=== PATIENT | female | born 1980 ===

== ENCOUNTER 2020-02-16 17:06 | Outpatient (REF) | payer OTHER, SELFPAY | END 2020-02-16 17:07 | disposition home or self-care (01) | LOC: HO.LNP 17:06 | PROVIDERS: Visit Provider Physician Assistant | DX: J02.8 Acute pharyngitis due to other specified organisms (principal) | CPT/HCPCS: 87071 ==

== ENCOUNTER → 2020-04-06 10:06 | Outpatient (BNVA) | payer OTHER, SELFPAY | PROVIDERS: PCP Internal Medicine; Visit Provider Advanced Practice Midwife ==

== ENCOUNTER 2020-04-15 08:22 | Outpatient (REF) | payer OTHER, SELFPAY ==
[2020-04-17 03:51] LABS: C. trachomatis RNA TMA NOT DETECTED (NOT DETECTED); N. gonorrhoeae RNA TMA NOT DETECTED (NOT DETECTED)
== END 2020-04-15 08:23 | disposition home or self-care (01) ==
LOC: HO.LNP 08:22
PROVIDERS: Visit Provider Advanced Practice Midwife
DX: Z30.430 Encounter for insertion of intrauterine contraceptive device (principal); N92.0 Excessive and frequent menstruation with regular cycle; B94.8 Sequelae of other specified infectious and parasitic diseases
CPT/HCPCS: 58300; 81025; 87491; 87591; 99212

== ENCOUNTER → 2020-04-26 14:21 | Outpatient (BNVA) | payer OTHER, SELFPAY | PROVIDERS: PCP Internal Medicine; Visit Provider Surgery | DX: K42.9 Umbilical hernia without obstruction or gangrene (principal) | CPT/HCPCS: 99202 ==

== ENCOUNTER 2020-05-05 18:25 | Emergency (ER) | payer OTHER, SELFPAY ==
--- NOTE | ~2020-05-05 | US_ITS ---
EXAMINATION: PELVIC ULTRASOUND CLINICAL INFORMATION: Heavy vaginal bleeding with recent IUD placement. Left lower quadrant pain with question of ovarian torsion COMPARISON: 07/01/2018 TECHNIQUE: Both transabdominal endovaginal scanning was performed. Lower flow Doppler imaging was utilized. FINDINGS: Retroverted retroflexed uterus is present measuring 8.9 x 4.1 x 4.8 cm. The endometrium appears unremarkable at 0.9 cm. An IUD is present in correct position. The right ovary measures 4.0 x 1.5 x 2.7 cm for a volume of 12.2 mL and contains 2 cysts one measuring 2.8 x 1.3 x 2.9 cm with internal daughter cysts (image: 79/114) along with an additional 1.3 x 0.7 x 1.0 cm cyst. Left ovary measures 2.4 x 1.8 x 2.1 cm for a volume of 5.7 mL the and it contains follicular cysts the largest of which is 0.9 x 0.6 x 1.2 cm. No free fluid is present in the cul-de-sac Both ovaries demonstrate normal arterial and venous Doppler flow without evidence to suggest ovarian torsion. Prominent adnexal veins are present bilaterally, right greater than left. US/US pelvic complete IMPRESSION: No evidence of ovarian torsion. Bilateral ovarian cysts, right greater than left. No follow-up is needed.
--- NOTE | ~2020-05-05 | US_ITS ---
EXAMINATION: PELVIC ULTRASOUND CLINICAL INFORMATION: Heavy vaginal bleeding with recent IUD placement. Left lower quadrant pain with question of ovarian torsion COMPARISON: 07/01/2018 TECHNIQUE: Both transabdominal endovaginal scanning was performed. Lower flow Doppler imaging was utilized. FINDINGS: Retroverted retroflexed uterus is present measuring 8.9 x 4.1 x 4.8 cm. The endometrium appears unremarkable at 0.9 cm. An IUD is present in correct position. The right ovary measures 4.0 x 1.5 x 2.7 cm for a volume of 12.2 mL and contains 2 cysts one measuring 2.8 x 1.3 x 2.9 cm with internal daughter cysts (image: 79/114) along with an additional 1.3 x 0.7 x 1.0 cm cyst. Left ovary measures 2.4 x 1.8 x 2.1 cm for a volume of 5.7 mL the and it contains follicular cysts the largest of which is 0.9 x 0.6 x 1.2 cm. No free fluid is present in the cul-de-sac Both ovaries demonstrate normal arterial and venous Doppler flow without evidence to suggest ovarian torsion. Prominent adnexal veins are present bilaterally, right greater than left. US/US transvaginal IMPRESSION: No evidence of ovarian torsion. Bilateral ovarian cysts, right greater than left. No follow-up is needed.
--- NOTE | ~2020-05-05 | US_ITS ---
EXAMINATION: PELVIC ULTRASOUND CLINICAL INFORMATION: Heavy vaginal bleeding with recent IUD placement. Left lower quadrant pain with question of ovarian torsion COMPARISON: 07/01/2018 TECHNIQUE: Both transabdominal endovaginal scanning was performed. Lower flow Doppler imaging was utilized. FINDINGS: Retroverted retroflexed uterus is present measuring 8.9 x 4.1 x 4.8 cm. The endometrium appears unremarkable at 0.9 cm. An IUD is present in correct position. The right ovary measures 4.0 x 1.5 x 2.7 cm for a volume of 12.2 mL and contains 2 cysts one measuring 2.8 x 1.3 x 2.9 cm with internal daughter cysts (image: 79/114) along with an additional 1.3 x 0.7 x 1.0 cm cyst. Left ovary measures 2.4 x 1.8 x 2.1 cm for a volume of 5.7 mL the and it contains follicular cysts the largest of which is 0.9 x 0.6 x 1.2 cm. No free fluid is present in the cul-de-sac Both ovaries demonstrate normal arterial and venous Doppler flow without evidence to suggest ovarian torsion. Prominent adnexal veins are present bilaterally, right greater than left. US/US pelvic ovarian doppler IMPRESSION: No evidence of ovarian torsion. Bilateral ovarian cysts, right greater than left. No follow-up is needed.
[2020-05-05 20:02] VITALS: BP 110/54; PULSE 84; RESP 16; TEMP 37.1; O2SAT 98; BMI 30.1
[2020-05-05] MEDS: 0.9 % Sodium Chloride 1,000 ML 999 ML IVCONT (20:54)
[2020-05-05 21:08] LABS: MANUAL DIFF FLAG NO
[2020-05-05 21:18] LABS: Basophils Absolute Auto 0.1 X10*3/uL (0.0-0.2); Basophils Percent Auto 0.5 % (0-2); Eosinophils Absolute Auto 0.1 X10*3/uL (0.0-0.4); Eosinophils Percent Auto 0.8 % (0-4); Hematocrit 37.8 % (37-47); Hemoglobin 12.5 g/dl (12.0-16.0); Imm Gran Abs Auto 0.03 X10*3/uL (0.00-0.03); Imm Gran Pct Auto 0.3 % (0.0-0.4); Lymphocytes Absolute Auto 2.3 X10*3/uL (1.2-4.9); Lymphocytes Percent Auto 24.2 % (20-40); Mean Corpuscular HGB Conc 33.1 g/dl (31.0-35.0); Mean Corpuscular Hemoglobin 29.6 pg (27.0-33.0); Mean Corpuscular Volume 89.4 fL (80-98); Mean Platelet Volume 12.4 fL (9.4-12.3); Monocytes Absolute Auto 0.6 X10*3/uL (0.1-1.2); Monocytes Percent Auto 6.1 % (2-11); Neutrophils Absolute Auto 6.4 X10*3/uL (2.0-8.3); Neutrophils Percent Auto 68.1 % (45-73); Platelet Count 237 X10*3/uL (160-400); Red Blood Count 4.23 X10*6/uL (4.20-5.50); Red Cell Distribution Width 13.1 % (11.0-16.0); White Blood Count 9.4 X10*3/uL (4.8-10.8)
[2020-05-05 21:18] LABS: Glucose Urine UA NEG (NEG); Leukocyte Esterase Urine 1+ (NEG); Nitrite Urine NEG (NEG); Specific Gravity - Urine 1.015 (1.005-1.025); UACC Culture Trigger YES; Urine Blood 3+ (NEG); Urine Ketones NEG (NEG); Urine Protein NEG (NEG-TRACE)
[2020-05-05 21:21] LABS: Appearance Urine HAZY; Color Urine DARK YELLOW
[2020-05-05 21:22] LABS: UPreg QC Valid YES; Urine Pregnancy NEGATIVE (NEGATIVE)
[2020-05-05 21:24] LABS: INTERNATIONAL NORM RATIO 1.1 (0.9-1.1); Prothrombin Time 12.7 SEC (10.8-13.0)
[2020-05-05 21:28] LABS: Partial Thromboplastin Time 35.7 SEC (24.1-38.0)
[2020-05-05 21:38] LABS: Bacteria Urine TRACE /LPF; Squamous Epithelial Cell Urine TRACE /LPF
--- NOTE | 2020-05-05 21:51 | PC.NURSE ---
Patient off unit for ultrasound. Will redraw labs when she returns. Refused tramadol prior to ultrasound. States she does not want medication that strong.
[2020-05-05 22:28] LABS: Alanine Aminotransferase 28 U/L (0-31); Albumin Level 3.9 g/dL (3.5-5.0); Alkaline Phosphatase 56 U/L (39-117); Anion Gap 13 (12-20); Aspartate Amino Transferase 19 U/L (5-31); Bilirubin Direct < 0.2 mg/dL (0.0-0.5); Bilirubin Total 0.2 mg/dL (0.0-1.0); Blood Urea Nitrogen 15 mg/dL (9-16); Carbon Dioxide 23 mmol/L (22-29); Chloride 108 mmol/L (96-108); Creatinine Clr Calc Pharmacy 94.9; Estimated Glomerular Filt Rate > 60; Glucose Random 87 mg/dL (60-115); Potassium 4.3 mmol/L (3.3-5.1); Sodium 140 mmol/L (135-145); Total Protein 6.8 g/dL (6.5-8.0)
--- NOTE | 2020-05-05 23:06 | PC.NURSE ---
Bedside vaginal exam performed by provider. Exam results explained.
--- NOTE | 2020-05-05 23:08 | ED.FEMALEGU ---
HPI - Female Genitourinary General Chief complaint: Vaginal Bleeding Stated complaint: vaginal bleeding Time Seen by Provider: 05/05/20 20:15 Source: patient Mode of arrival: ambulatory Limitations: no limitations History of Present Illness HPI Narrative: 39-year-old female with a past medical history of anxiety disorder, umbilical hernia, who is 6 months who had an IUD placed on 04/15/2020 presenting to the ED with complaints of vaginal bleeding since 04/01/2020 worse within the past few days with clots with associated lower abdominal pain. Denies any other symptoms complaints or concerns. Reports that she recently had a Pap smear and was tested for gonorrhea chlamydia was negative. Declining testing for STDs at this time. MD elicited complaint: vaginal bleeding Pertinent past history: IUD (Placed on 04/15/2020) Onset (ago): day(s) (Since 04/01/2020 worse today) Location of symptoms: suprapubic Severity: moderate Female Urogenital Radiation: LLQ Quality of pain: cramping Consistency: constant Vaginal discharge: none Vaginal bleeding: heavy, bright red and clots Exacerbating factors: none Relieving factors: none Associated symptoms: abdominal pain Treatment prior to arrival: none Sexual activity: Yes Patient : No Related Data Home Medications Medication Instructions Recorded Confirmed multivitamin 1 tab PO DAILY 12/02/19 04/26/20 Previous Rx's Medication Instructions Recorded loratadine 10 mg capsule 10 mg PO DAILY 30 Days #30 cap 01/27/20 sodium chloride 0.65 % nasal spray 2 spray INTRANASAL BID 5 Days #50 01/27/20 aerosol ml acetaminophen [Tylenol Extra 1,000 mg PO QID PRN #14 tab 05/05/20 Strength] ibuprofen 800 mg PO Q8H PRN #14 tab 05/05/20 Allergies Allergy/AdvReac Type Severity Reaction Status Date / Time Penicillins [PENICILLINS] Allergy Severe HIVES Verified 04/15/20 08:37 amoxicillin [AMOXICILLIN] Allergy Mild HIVES Verified 04/15/20 08:37 eggs Allergy Unknown Unknown Verified 04/15/20 08:37 penicillin V Allergy Unknown unknown Verified 04/15/20 08:37 peanuts Allergy Unknown Unknown Uncoded 04/15/20 08:37 sesami seeds Allergy Unknown shortness Uncoded 04/15/20 08:37 of breath sesamy seed Allergy Unknown Unknown Uncoded 04/06/20 10:38 tree nuts Allergy Unknown nausea and Uncoded 04/06/20 10:38 vomiting Review of Systems Review of Systems: Constitutional : No Fever, No Chills ENT/Mouth : No sore throat, No Rhinorrhea Eyes: No Eye Pain, No Redness Cardiovascular : No Chest Pain, No SOB Respiratory : No Cough, No Sputum, No Wheezing Gastrointestinal : No Nausea, No Vomiting, No Diarrhea, positive abdominal pain, Genitourinary : + irregular bleeding, No Dysuria, No Urinary Frequency, No pelvic pain, No vaginal discharge, no hematuria Musculoskeletal : No Myalgias Skin : No rash Neuro : No Weakness, No Headache Psych : No Anxiety/Panic, No Depression Heme/Lymph: No bruising, No Lymphadenopathy Endocrine : No Polyuria, No Polydipsia Yes all other systems are reviewed and are negative [facility] Past Medical History Attestation statement: The following information was validated with the patient. Medical History Breast cyst Ovarian cyst Umbilical hernia Surgical History History of appendectomy Family History Family History Maternal Grandmother Breast cancer Social History Social History Alcohol intake: never Smoking Status: Never smoker Smoked in Last 30 Days: No Use of substances other than those prescribed or required for medical reasons: No Advance Directives: No Advance Directives Information Provided: Yes Sexual orientation: Straight/Heterosexual Gender identity: female Physical Exam Vital Signs: Vital Signs: Last Vital Signs Temp 98.7 F 05/05/20 20:02 Pulse 84 05/05/20 20:02 Resp 16 05/05/20 20:02 BP 110/54 L 05/05/20 20:02 Pulse Ox 98 05/05/20 20:02 Body Mass Index 30.1 vital signs have been reviewed as normal and appeared to be correct. Blood pressure normal. Heart rate normal. Respiration rate normal. Temperature normal. Oxygen saturation normal. Appearance: Alert. Oriented X3. No acute distress. Head: Normal external exam. Normocephalic. Atraumatic. No Pike signs noted. No raccoon eyes noted Eyes: PERRLA. EOMI. Conjunctiva and sclera normal. Eyelids normal. ENT: EAC normal. TM's Normal. Pharynx normal. Uvula midline. Moist mucous membranes. No trismus noted. No drooling noted. No muffled voice noted. Neck: Normal inspection. Neck supple. FROM. No adenopathy. Thyroid Normal. No meningeal signs. No neck mass noted. CVS: Normal heart rate and rhythm. Heart sound normal. No murmurs noted. Pulses normal throughout. Respiratory: No respiratory distress. Painless inspiration. Breath sounds normal. No wheezes/rales/rhonchi noted. Chest nontender. No accessory muscle usage noted or decreased air movement noted. Abdomen: Soft and nontender. Bowel sounds normal in all 4 quadrants. No distention noted. No organomegaly noted. No visible injury noted. : Supervised by PCT, Normal external appearance of urethra. No lesions/lacerations or discharge or tenderness noted. Speculum exam normal appearance/palpation of vagina normal. No abnormal vaginal discharge noted. Otherwise no vaginal erythema. No foreign bodies noted. No vaginal laceration/lesions noted. Patient with mild active bleeding from the cervix although not consistent with hemorrhaging. No tissue present in vagina. No vaginal mass noted. No vaginal swelling noted. No vaginal tenderness noted. Normal appearance of cervix. Normal palpation of cervix. Cervical os is closed. No abnormal cervical discharge noted. No cervical lesion/mass. No Bartholin cyst noted. No cervical motion tenderness noted. Negative chandelier sign. Normal bimanual exam. Uterine size normal. Bladder normal to palpation. Uterine consistency normal. Normal cervical palpation. Uterine mobility normal. Uterine shape normal. Normal adnexa. Normal rectovaginal exam. Back: No CVA tenderness. Full range of motion noted. Skin: Skin warm and dry. Normal skin color. Normal skin turgor. No rashes/lesions/lacerations noted. Extremities: No lower extremity edema. Extremities exhibit normal range of motion. Extremities nontender. Neuro: Oriented X 3. No motor deficit. No sensory deficit. Reflexes normal. Course Course Course Narrative: 39-year-old female with a past medical history of anxiety disorder, umbilical hernia, who is 6 months who had an IUD placed on 04/15/2020 presenting to the ED with complaints of vaginal bleeding since 04/01/2020 worse within the past few days with clots with associated lower abdominal pain. - labs obtained and all within normal limits. UA revealed blood although no evidence of UTI. UHCG negative for . Ovarian/pelvic/transvaginal/duplex ultrasound revealed bilateral ovarian cyst otherwise no other acute processes and not consistent with ovarian torsion. - therefore will DC home with symptomatic treatment along with instructions to follow-up with OBGYN and to return if any new or worsening symptoms. Patient understands agrees with this plan. MDM - Female Genitourinary Medical Records Attestation: I reviewed the patient's medical records. Lab Data Attestation: I reviewed the patient's lab results. Result diagrams: 05/05/20 20:52 05/05/20 21:59 Labs: Lab Results 05/05/20 05/05/20 05/05/20 Range/Units 20:52 20:52 20:52 WBC 9.4 (4.8-10.8) X10*3/uL RBC 4.23 (4.20-5.50) X10*6/uL Hgb 12.5 (12.0-16.0) g/dl Hct 37.8 (37-47) % MCV 89.4 (80-98) fL MCH 29.6 (27.0-33.0) pg MCHC 33.1 (31.0-35.0) g/dl RDW 13.1 (11.0-16.0) % Plt Count 237 (160-400) X10*3/uL MPV 12.4 H (9.4-12.3) fL Immature Gran % (Auto) 0.3 (0.0-0.4) % Neut % (Auto) 68.1 (45-73) % Lymph % (Auto) 24.2 (20-40) % Frontier % (Auto) 6.1 (2-11) % Eos % (Auto) 0.8 (0-4) % Baso % (Auto) 0.5 (0-2) % Lymph # (Auto) 2.3 (1.2-4.9) X10*3/uL Frontier # (Auto) 0.6 (0.1-1.2) X10*3/uL Eos # (Auto) 0.1 (0.0-0.4) X10*3/uL Baso # (Auto) 0.1 (0.0-0.2) X10*3/uL Abs Immat Gran (auto) 0.03 (0.00-0.03) X10*3/uL Absolute Neuts (auto) 6.4 (2.0-8.3) X10*3/uL Absolute Nucleated RBC 0.000 (0.0-0.012) X10*3/uL Nucleated RBC % (auto) 0.0 (0.0-0.2) /100WBC PT 12.7 (10.8-13.0) SEC INR 1.1 (0.9-1.1) APTT 35.7 (24.1-38.0) SEC Sodium Cancelled Potassium Cancelled Chloride Cancelled Carbon Dioxide Cancelled Anion Gap Cancelled BUN Cancelled Creatinine Cancelled Estim Creat Clear Calc Cancelled Estimated GFR Cancelled Random Glucose Cancelled Calcium Cancelled Magnesium Cancelled Total Bilirubin Cancelled Direct Bilirubin Cancelled AST Cancelled ALT Cancelled Alkaline Phosphatase Cancelled Total Protein Cancelled Albumin Cancelled Urine Color Urine Appearance Urine pH (5.0-8.0) Ur Specific [place] (1.005-1.025) Urine Protein (NEG-TRACE) MG/DL Urine Glucose (UA) (NEG) MG/DL Urine Ketones (NEG) MG/DL Urine Blood (NEG) Urine Nitrite (NEG) Ur Leukocyte Esterase (NEG) Urine RBC (0) /HPF Urine WBC (0-4) /HPF Ur Squamous Epith Cells /LPF Urine Bacteria /LPF Urine Test (NEGATIVE) 05/05/20 05/05/20 05/05/20 Range/Units 21:00 21:00 21:59 WBC (4.8-10.8) X10*3/uL RBC (4.20-5.50) X10*6/uL Hgb (12.0-16.0) g/dl Hct (37-47) % MCV (80-98) fL MCH (27.0-33.0) pg MCHC (31.0-35.0) g/dl RDW (11.0-16.0) % Plt Count (160-400) X10*3/uL MPV (9.4-12.3) fL Immature Gran % (Auto) (0.0-0.4) % Neut % (Auto) (45-73) % Lymph % (Auto) (20-40) % Frontier % (Auto) (2-11) % Eos % (Auto) (0-4) % Baso % (Auto) (0-2) % Lymph # (Auto) (1.2-4.9) X10*3/uL Frontier # (Auto) (0.1-1.2) X10*3/uL Eos # (Auto) (0.0-0.4) X10*3/uL Baso # (Auto) (0.0-0.2) X10*3/uL Abs Immat Gran (auto) (0.00-0.03) X10*3/uL Absolute Neuts (auto) (2.0-8.3) X10*3/uL Absolute Nucleated RBC (0.0-0.012) X10*3/uL Nucleated RBC % (auto) (0.0-0.2) /100WBC PT (10.8-13.0) SEC INR (0.9-1.1) APTT (24.1-38.0) SEC Sodium 140 Potassium 4.3 Chloride 108 Carbon Dioxide 23 Anion Gap 13 BUN 15 Creatinine 0.79 Estim Creat Clear Calc 94.9 Estimated GFR > 60 Random Glucose 87 Calcium 8.0 L Magnesium 2.0 Total Bilirubin 0.2 Direct Bilirubin < 0.2 AST 19 ALT 28 Alkaline Phosphatase 56 Total Protein 6.8 Albumin 3.9 Urine Color DARK YELLOW Urine Appearance HAZY Urine pH 7.0 (5.0-8.0) Ur Specific [place] 1.015 (1.005-1.025) Urine Protein NEG (NEG-TRACE) MG/DL Urine Glucose (UA) NEG (NEG) MG/DL Urine Ketones NEG (NEG) MG/DL Urine Blood 3+ H (NEG) Urine Nitrite NEG (NEG) Ur Leukocyte Esterase 1+ H (NEG) Urine RBC 76-150 H (0) /HPF Urine WBC 1-4 (0-4) /HPF Ur Squamous Epith Cells TRACE /LPF Urine Bacteria TRACE /LPF Urine Test NEGATIVE (NEGATIVE) Imaging Data Pelvic/transvaginal/doopler ultrasound: Attestation: I personally reviewed and interpreted this imaging study as follows: Radiologist's impression: FINDINGS: Retroverted retroflexed uterus is present measuring 8.9 x 4.1 x 4.8 cm. The endometrium appears unremarkable at 0.9 cm. An IUD is present in correct position. The right ovary measures 4.0 x 1.5 x 2.7 cm for a volume of 12.2 mL and contains 2 cysts one measuring 2.8 x 1.3 x 2.9 cm with internal daughter cysts (image: 79/114) along with an additional 1.3 x 0.7 x 1.0 cm cyst. Left ovary measures 2.4 x 1.8 x 2.1 cm for a volume of 5.7 mL the and it contains follicular cysts the largest of which is 0.9 x 0.6 x 1.2 cm. No free fluid is present in the cul-de-sac Both ovaries demonstrate normal arterial and venous Doppler flow without evidence to suggest ovarian torsion. Prominent adnexal veins are present bilaterally, right greater than left. US/US pelvic ovarian doppler IMPRESSION: No evidence of ovarian torsion. Bilateral ovarian cysts, right greater than left. No follow-up is needed. Discharge Plan Discharge Clinical Impression: Vaginal bleeding, Menorrhagia, Ovarian cyst, Cyst, ovary, follicular Patient Disposition: Home, Self-Care Instructions: Ovarian Cyst (ED), Menorrhagia (ED), Ruptured Ovarian Cyst (ED) Prescriptions: New ibuprofen 800 mg tablet 800 mg PO Q8H PRN (Reason: pain) Qty: 14 RF: 0 acetaminophen [Tylenol Extra Strength] 500 mg tablet 1,000 mg PO QID PRN (Reason: fever or pain) Qty: 14 RF: 0 No Action loratadine 10 mg capsule 10 mg PO DAILY 30 Days Qty: 30 RF: 1 sodium chloride [[place] Saline] 0.65 % aerosol,spray 2 spray intranasal BID 5 Days Qty: 50 RF: 1 multivitamin Tablet 1 tab PO DAILY RF: 0 Referrals: Stanford Waters MD [Primary Care Provider] - 2 days Stand Alone Forms: Work/School Release Print Language: Khmer
== END 2020-05-05 23:32 | disposition home or self-care (01) ==
PROVIDERS: Physician Assistant Medical; Emergency Provider Internal Medicine; PCP Internal Medicine
DX: N93.9 Abnormal uterine and vaginal bleeding, unspecified (principal); N83.02 Follicular cyst of left ovary; N83.201 Unspecified ovarian cyst, right side; R10.30 Lower abdominal pain, unspecified
CPT/HCPCS: 36415; 76830; 76856; 80048; 80076; 81001; 81003; 81025; 83735; 85025; 85610; 85730; 87086; 93975; 96361; 96374; 99284

== ENCOUNTER → 2020-05-25 14:21 | Outpatient (BNVA) | payer OTHER, SELFPAY | PROVIDERS: PCP Internal Medicine; Visit Provider Advanced Practice Midwife ==

== ENCOUNTER 2020-05-26 07:40 | Outpatient (REF) | payer OTHER, SELFPAY ==
--- NOTE | ~2020-05-26 | XR_ITS ---
EXAMINATION: Left third finger CLINICAL INFORMATION: Ganglion on. COMPARISON: None TECHNIQUE: 3 views of the left third finger including AP view of the hand FINDINGS: The bones and soft tissues are normal. No fracture. Alignment is anatomic. Joint spaces are maintained. XR/XR finger LT min 2V IMPRESSION: Normal finger radiographs.
[2020-05-26 08:20] LABS: MANUAL DIFF FLAG NO
[2020-05-26 08:24] LABS: Glucose Urine UA NEG (NEG); Leukocyte Esterase Urine NEG (NEG); Nitrite Urine NEG (NEG); Specific Gravity - Urine 1.025 (1.005-1.025); Urine Blood NEG (NEG); Urine Ketones NEG (NEG); Urine Protein NEG (NEG-TRACE)
[2020-05-26 08:26] LABS: Appearance Urine CLEAR; Color Urine YELLOW
[2020-05-26 08:35] LABS: Basophils Percent Auto 0.5 % (0-2); Eosinophils Absolute Auto 0.1 X10*3/uL (0.0-0.4); Eosinophils Percent Auto 0.6 % (0-4); Hematocrit 41.3 % (37-47); Hemoglobin 13.3 g/dl (12.0-16.0); Imm Gran Abs Auto 0.01 X10*3/uL (0.00-0.03); Imm Gran Pct Auto 0.1 % (0.0-0.4); Lymphocytes Absolute Auto 1.7 X10*3/uL (1.2-4.9); Lymphocytes Percent Auto 22.1 % (20-40); Mean Corpuscular HGB Conc 32.2 g/dl (31.0-35.0); Mean Corpuscular Hemoglobin 28.7 pg (27.0-33.0); Mean Corpuscular Volume 89.2 fL (80-98); Mean Platelet Volume 12.3 fL (9.4-12.3); Monocytes Absolute Auto 0.5 X10*3/uL (0.1-1.2); Monocytes Percent Auto 6.2 % (2-11); Neutrophils Absolute Auto 5.5 X10*3/uL (2.0-8.3); Neutrophils Percent Auto 70.5 % (45-73); Platelet Count 318 X10*3/uL (160-400); Red Blood Count 4.63 X10*6/uL (4.20-5.50); White Blood Count 7.8 X10*3/uL (4.8-10.8)
[2020-05-26 08:44] LABS: Alanine Aminotransferase 14 U/L (0-31); Albumin Level 3.9 g/dL (3.5-5.0); Alkaline Phosphatase 61 U/L (39-117); Anion Gap 12 (12-20); Aspartate Amino Transferase 15 U/L (5-31); Bilirubin Total 0.6 mg/dL (0.0-1.0); Blood Urea Nitrogen 11 mg/dL (9-16); Calcium 9.1 mg/dL (8.4-10.2); Carbon Dioxide 26 mmol/L (22-29); Chloride 105 mmol/L (96-108); Cholesterol 145 mg/dL; Estimated Glomerular Filt Rate > 60; Glucose Fasting 85 mg/dL (60-99); HDL Cholesterol 40 mg/dL; LDL Cholesterol Calculated 85 mg/dl; Potassium 4.2 mmol/L (3.3-5.1); Sodium 139 mmol/L (135-145); Total Protein 6.7 g/dL (6.5-8.0); Triglycerides 103 mg/dL
[2020-05-26 09:05] LABS: TSH reflex Free T4 1.61 uIU/mL (0.32-4.0)
== END 2020-05-26 07:41 | disposition home or self-care (01) ==
LOC: HO.LAB 07:40
PROVIDERS: PCP Internal Medicine; Visit Provider Internal Medicine
DX: Z00.00 Encounter for general adult medical examination without abnormal findings (principal); E66.9 Obesity, unspecified; M67.449 Ganglion, unspecified hand
CPT/HCPCS: 36415; 73140; 80053; 80061; 81003; 84443; 85025

== ENCOUNTER → 2020-06-20 09:37 | Outpatient (BNVA) | payer OTHER, SELFPAY | PROVIDERS: Visit Provider Advanced Practice Midwife | DX: Z30.431 Encounter for routine checking of intrauterine contraceptive device (principal); M79.89 Other specified soft tissue disorders | CPT/HCPCS: 10021; 99202; 99212 ==

== ENCOUNTER 2020-07-13 06:05 | Day surgery (SDC) | payer OTHER, SELFPAY ==
[2020-07-06 11:03] VITALS: BMI 31.3
--- NOTE | 2020-07-12 07:58 | P.CONAN_ITS ---
Documented by User: Souyma Elizabeth 07/12/20 07:58 HPI - Anesthesia Eval Consult details Narrative: 39yo F for Hernia Repair Umbilical with Mesh PMFSH Active Problems Active Problems: All Active Problems (Updated 07/06/20 @ 10:55 by Padma Vega) Encounter for IUD insertion (Acute) Menorrhagia with regular cycle (Acute) [id number] condition (Acute) Anxiety disorder (Acute) Encounter for routine checking of intrauterine contraceptive device (IUD) (Acute) Mass of soft tissue of left upper extremity (Acute) Ganglion cyst of finger (Acute) Obesity (BMI 30-39.9) (Acute) Back pain (Acute) Umbilical hernia (Acute) Past Medical History Medical History Back pain Breast cyst COVID-19 vaccine series completed Ganglion cyst of finger Obesity (BMI 30-39.9) Ovarian cyst Umbilical hernia Family History Family History Maternal Grandmother Breast cancer Surgical History Surgical History History of appendectomy Social History Social History Are you a primary personal care attendant to a significant other at home: No Do you presently have visiting nurse or other home services: No Alcohol intake: never Patient Tobacco Use Status: Never used Tobacco Use of substances other than those prescribed or required for medical reasons: No Have you been hit, kicked, punched, or otherwise hurt by someone within the past year? If so, by whom?: No Are you DNR?: No Advance Directives: No Advance Directives Information Provided: No Advance Directives on File: No Recently lost weight without trying: No Eating poorly because of decreased appetite: No Nutrition Risks: No Nutritional Risk Current occupational status: unemployed Current occupation: rt handed Sexual orientation: Straight/Heterosexual Gender identity: female Meds Allergies Allergy/AdvReac Type Severity Reaction Status Date / Time Penicillins [PENICILLINS] Allergy Severe HIVES Verified 07/13/20 06:30 amoxicillin [AMOXICILLIN] Allergy Mild HIVES Verified 07/13/20 06:30 eggs Allergy Unknown vomiting, Verified 07/13/20 06:30 rash sesame seed Allergy Shortness Verified 07/13/20 06:30 of Breath peanuts Allergy Unknown Unknown Uncoded 07/13/20 06:30 tree nuts Allergy Unknown nausea and Uncoded 07/13/20 06:30 vomiting Home Medications Medication Instructions Recorded Confirmed Last Taken Type multivitamin 1 tab PO DAILY 12/02/19 07/06/20 Unknown History levonorgestrel 20 mcg/24 hours (6 INTRAUTERINE 06/20/20 06/20/20 Unknown History yrs) 52 mg intrauterine device Exam Exam Date and Time: July 12, 2020 0758 Height,Weight and Vital Signs: Height 5 ft 3 in Weight 80.286 kg Assessment and Plan Assessment Anesthesia Assessment: Chart Reviewed Documented by User: Taryn Odell 07/13/20 07:29 [facility] Past Medical History Medical History Back pain Breast cyst COVID-19 vaccine series completed Ganglion cyst of finger Obesity (BMI 30-39.9) Ovarian cyst Umbilical hernia Family History Family History Maternal Grandmother Breast cancer Surgical History Surgical History History of appendectomy Social History Social History Are you a primary personal care attendant to a significant other at home: No Do you presently have visiting nurse or other home services: No Alcohol intake: never Patient Tobacco Use Status: Never used Tobacco Use of substances other than those prescribed or required for medical reasons: No Have you been hit, kicked, punched, or otherwise hurt by someone within the past year? If so, by whom?: No Are you DNR?: No Advance Directives: No Advance Directives Information Provided: No Advance Directives on File: No Recently lost weight without trying: No Eating poorly because of decreased appetite: No Nutrition Risks: No Nutritional Risk Current occupational status: unemployed Current occupation: rt handed Sexual orientation: Straight/Heterosexual Gender identity: female Meds Allergies Allergy/AdvReac Type Severity Reaction Status Date / Time Penicillins [PENICILLINS] Allergy Severe HIVES Verified 07/13/20 06:30 amoxicillin [AMOXICILLIN] Allergy Mild HIVES Verified 07/13/20 06:30 eggs Allergy Unknown vomiting, Verified 07/13/20 06:30 rash sesame seed Allergy Shortness Verified 07/13/20 06:30 of Breath peanuts Allergy Unknown Unknown Uncoded 07/13/20 06:30 tree nuts Allergy Unknown nausea and Uncoded 07/13/20 06:30 vomiting Home Medications Medication Instructions Recorded Confirmed Last Taken Type multivitamin 1 tab PO DAILY 12/02/19 07/06/20 Unknown History levonorgestrel 20 mcg/24 hours (6 INTRAUTERINE 06/20/20 06/20/20 Unknown History yrs) 52 mg intrauterine device Exam Airway Mallampati Class: II TM Dist: >3cm Neck ROM: Full Assessment and Plan Assessment Anesthesia Assessment: Anesthesia Plan Discussed and Chart Reviewed Final Anesthetic Review NPO: Yes ASA Class: II Final Preanesthetic Review: No Changes in Pt Med Stat, Meds/Allgs Chart Reviewed, Consent Obtained/Reviewed and Anes Risks/Benef Reviewed Patient Risk: Low Procedure Risk: Low Assessment/Block/Sedation in SS: Assess/Block/Sedation-SS Anesthetic Plan Anesthetic Plan: GA Disposition: Standard PACU
[2020-07-13] VITALS (7 sets, daily range): BP systolic 109–123; BP diastolic 57–71; PULSE 67–88; RESP 16–18; TEMP 36.4–36.7; O2SAT 94–100
[2020-07-13 06:35] LABS: UPreg QC Valid YES; Urine Pregnancy NEGATIVE (NEGATIVE)
--- NOTE | 2020-07-13 07:28 | MHC.SHP ---
Pre-Procedural Eval Section A The patient is an INPATIENT: No Changes since office visit: Yes Patient answered all questions; No Cold of Flu in the past 2 weeks, No New Medical Problems and No Changes in Medication The History & Physical has been completed within 30 days and I have reviewed it.: Yes Section B Chief Complaint: Umbilical Hernia Allergies: Allergies Allergy/AdvReac Type Severity Reaction Status Date / Time Penicillins [PENICILLINS] Allergy Severe HIVES Verified 07/13/20 06:30 amoxicillin [AMOXICILLIN] Allergy Mild HIVES Verified 07/13/20 06:30 eggs Allergy Unknown vomiting, Verified 07/13/20 06:30 rash sesame seed Allergy Shortness Verified 07/13/20 06:30 of Breath peanuts Allergy Unknown Unknown Uncoded 07/13/20 06:30 tree nuts Allergy Unknown nausea and Uncoded 07/13/20 06:30 vomiting Plan Diagnosis/Plan: Unchanged I have reviewed the history and physical and performed a pertinent physical examination on my patient. No changes have occurred unless specified.
[2020-07-13] MEDS: Lactated Ringers 1,000 ML 100 ML IVCONT (07:37)
--- NOTE | 2020-07-13 08:29 | W.PM.OPN ---
Operative Note Operative Note Date of Service: 07/13/20 Narrative: Preoperative diagnosis: Umbilical hernia Postoperative diagnosis: Umbilical hernia Procedure: Repair of umbilical hernia with mesh Surgeon: Moo Hurd MD Magnetic Locater: No physician Anesthesia: General LMA Indications for procedure: 39-year-old female presenting with a palpable lump located just below the umbilicus causing discomfort and increasing in size. Operative findings: Umbilical hernia containing fat with a single defect measuring 1.5 cm in diameter. Specimen: None Estimated blood loss: 5 mL Complications: None Procedure details: Patient was brought to the OR and placed in a supine position. After administering general anesthesia the patient's abdomen was prepped with ChloraPrep and draped in a sterile fashion. A surgical time-out was called and the consent confirmed. Patient received preoperative antibiotics and Venodyne boots were in place. Local anesthesia consisting of 0.25% Sensorcaine with epinephrine was infiltrated in periumbilical region. A curvilinear incision was made below the umbilicus in a transverse fashion. This was carried down through subcutaneous tissue and up to the hernia sac. The hernia sac was then dissected circumferentially using electrocautery and blunt dissection. The fascial defect was identified. This was then further defined using electrocautery. The hernia contents were then reduced into the preperitoneal space. No bowel was noted within the hernia contents. A preperitoneal space was then created using blunt dissection. Hemostasis was assured at this time. A 4.6 cm round Ventralex mesh was then obtained. This was placed in the preperitoneal space and secured to the fascia using [id number] 1 Tycron sutures. The fascia was closed over the mesh again using the 1 Tycron sutures. The wounds were then irrigated with saline solution and suctioned dry. Additional local was infiltrated in the subcutaneous tissue at this time. Umbilical skin was then approximated to the fascia using a 3-0 Polysorb suture. Dermis was reapproximated using interrupted 3-0 Polysorb sutures. Skin was closed using a running subcuticular 4-0 Polysorb suture. Steri-Strips Tegaderm and applied. The patient tolerated the procedure well. Sponge, instrument, needle counts reported as correct. The patient was transferred to PACU in stable condition.
== END 2020-07-13 09:50 | disposition home or self-care (01) ==
PROVIDERS: Nurse Practitioner; PCP Internal Medicine; Visit Provider Surgery
PROC: (CPT 49585; principal; 2020-07-13 07:30)
DX: K42.9 Umbilical hernia without obstruction or gangrene (principal); Z88.0 Allergy status to penicillin
CPT/HCPCS: 49585; 81025; C1781; J1100; J1170; J2250; J2405; J3370

== ENCOUNTER → 2020-07-22 08:57 | Outpatient (BNVA) | payer OTHER, SELFPAY | PROVIDERS: PCP Internal Medicine; Referring Provider Internal Medicine; Visit Provider Surgery | DX: Z48.815 Encounter for surgical aftercare following surgery on the digestive system (principal); Z87.19 Personal history of other diseases of the digestive system | CPT/HCPCS: 99212 ==

== ENCOUNTER → 2020-08-19 09:13 | Outpatient (BNVA) | payer OTHER, SELFPAY | PROVIDERS: PCP Internal Medicine; Referring Provider Internal Medicine; Visit Provider Surgery | DX: Z48.815 Encounter for surgical aftercare following surgery on the digestive system (principal); Z87.19 Personal history of other diseases of the digestive system | CPT/HCPCS: 99212 ==

== ENCOUNTER 2020-08-19 18:33 | Emergency (ER) | payer OTHER, SELFPAY ==
--- NOTE | ~2020-08-19 | XR_ITS ---
EXAMINATION: XR knee RT 3V, XR knee LT 3V CLINICAL INFORMATION: Reason for Exam pain, twisting injury 3 days ago COMPARISON: None available at the time of this dictation. TECHNIQUE: frontal, lateral, tunnel and patella sunrise views FINDINGS: BONES: No fracture or dislocation. Femoral notch on lateral view raise possibility of underlying ACL tears. JOINTS: Joint spaces are preserved. SOFT TISSUE: Normal XR/XR knee RT 3V IMPRESSION: No fracture. Bilateral femoral notch raise possibility of underlying soft tissue derangement including ACL tear. There is no joint effusion however. Clinical correlation recommended. If patient remain symptomatic consider correlation with MRI.
--- NOTE | ~2020-08-19 | XR_ITS ---
EXAMINATION: XR knee RT 3V, XR knee LT 3V CLINICAL INFORMATION: Reason for Exam pain, twisting injury 3 days ago COMPARISON: None available at the time of this dictation. TECHNIQUE: frontal, lateral, tunnel and patella sunrise views FINDINGS: BONES: No fracture or dislocation. Femoral notch on lateral view raise possibility of underlying ACL tears. JOINTS: Joint spaces are preserved. SOFT TISSUE: Normal XR/XR knee LT 3V IMPRESSION: No fracture. Bilateral femoral notch raise possibility of underlying soft tissue derangement including ACL tear. There is no joint effusion however. Clinical correlation recommended. If patient remain symptomatic consider correlation with MRI.
[2020-08-19 18:51] VITALS: BP 114/53; PULSE 89; RESP 16; TEMP 36.6; O2SAT 96; BMI 30.1
--- NOTE | 2020-08-19 19:27 | ED_ITS ---
HPI - Extremity Injury (Lower) General Chief Complaint: Extremity Injury, Lower Stated Complaint: Knee pain Time Seen by Provider: 08/19/20 19:12 Source: patient and family Mode of arrival: ambulatory Limitations: no limitations History of Present Illness HPI Narrative: 39-year-old female here with complaints of instability and weakness to both of her knees for quite some time. However 3 days ago she had a episode where her right knee buckled on her causing it to twist and now she has had pain which is worsened with weight-bearing since then. Related Data Home Medications Medication Instructions Recorded Confirmed multivitamin 1 tab PO DAILY 12/02/19 07/06/20 levonorgestrel 20 mcg/24 hours (6 INTRAUTERINE 06/20/20 06/20/20 yrs) 52 mg intrauterine device Previous Rx's Medication Instructions Recorded sodium chloride 0.65 % nasal spray 2 spray INTRANASAL BID 5 Days #50 01/27/20 aerosol ml acetaminophen [Tylenol Extra 1,000 mg PO QID PRN #14 tab 05/05/20 Strength] ibuprofen 800 mg PO Q8H PRN #14 tab 05/05/20 loratadine 10 mg tablet 10 mg PO DAILY #30 tab 07/17/20 Allergies Allergy/AdvReac Type Severity Reaction Status Date / Time Penicillins [PENICILLINS] Allergy Severe HIVES Verified 07/13/20 06:30 amoxicillin [AMOXICILLIN] Allergy Mild HIVES Verified 07/13/20 06:30 eggs Allergy Unknown vomiting, Verified 07/13/20 06:30 rash sesame seed Allergy Shortness Verified 07/13/20 06:30 of Breath peanuts Allergy Unknown Unknown Uncoded 07/13/20 06:30 tree nuts Allergy Unknown nausea and Uncoded 07/13/20 06:30 vomiting Review of Systems Review of Systems: Yes all other systems are reviewed and are negative Constitutional: Constitutional: Reports no additional constitutional complaints, Denies body ache(s), Denies chills, Denies fever(s), Denies headache(s) and Denies weakness Eyes: Eyes: Reports no additional eye complaints and Denies change in vision ENT: Reports system reviewed and no additional complaints, except as documented, Denies dizziness, Denies headache(s), Denies nasal congestion, Denies nasal discharge and Denies neck pain Cardiovascular: Cardiovascular: Reports no additional cardiovascular complaints, Denies chest pain, Denies leg edema and Denies dyspnea Respiratory: Respiratory: Reports no additional respiratory complaints, Denies cough and Denies dyspnea Gastrointestinal: Gastrointestinal: Reports no additional gastrointestinal complaints, Denies abdominal pain, Denies diarrhea, Denies nausea and Denies vomiting Genitourinary: Genitourinary: Reports no additional female genitourinary complaints and Denies urinary incontinence Musculoskeletal: Musculoskeletal: Reports no additional musculoskeletal complaints, Denies back pain, Reports arthralgias, Denies joint swelling, Denies neck pain, Denies numbness and Denies tingling Integumentary/Breasts: Skin/Breast: Reports system reviewed and no additional complaints, except as docu and Denies rash Neurologic: Reports system reviewed and no additional complaints, except as documented, Denies Abnormal speech present, Denies dizziness, Denies headache(s), Denies numbness, Denies tingling and Denies weakness PMFSH Past Medical History Attestation statement: The following information was validated with the patient. Source: old records reviewed and nursing notes reviewed Medical History Back pain Breast cyst COVID-19 vaccine series completed Ganglion cyst of finger Obesity (BMI 30-39.9) Ovarian cyst Umbilical hernia Surgical History History of appendectomy Family History Family History Maternal Grandmother Breast cancer Social History Social History Are you a primary acute care registered nurse to a significant other at home: No Do you presently have visiting nurse or other home services: No Alcohol intake: never Patient Tobacco Use Status: Never used Tobacco Advance Directives: No Advance Directives Information Provided: Yes Patient : No Current occupational status: unemployed Current occupation: rt handed Sexual orientation: Straight/Heterosexual Gender identity: female Physical Exam Vital Signs: Vital Signs: Last Vital Signs Temp 97.8 F 08/19/20 18:51 Pulse 89 08/19/20 18:51 Resp 16 08/19/20 18:51 BP 114/53 L 08/19/20 18:51 Pulse Ox 96 08/19/20 18:51 Body Mass Index 30.1 Const: General: cooperative, healthy appearing, comfortable and no acute distress Orientation/consciousness: patient oriented x3 Limitations: no limitations HENMT: Head: Yes normal to inspection Ears: hearing grossly normal bilaterally General nose exam: Normal external nose present Face and sinus: Yes normal facial exam Mouth: Normal oral and palatal mucosa present Throat: Yes posterior oropharynx normal Eyes: General: appearance normal, both eyes and all related structures Pupils: Equal, round and reactive pupils present Neck: Neck: Yes normal visual inspection Chest: Chest palpation & inspection: normal inspection of the chest Resp: Effort & Inspection: normal respiratory effort Auscultation: clear to auscultation bilaterally Cardio: Rate: regular rate Rhythm: regular rhythm Peripheral pulses: Peripheral pulses 2+ throughout GI: Inspection: Yes normal to inspection Palpation (GI): Soft to palpation and nontender Auscultation: normal bowel sounds Back/Spine/Pelvis: Thoracic/Lumbar Spine: thoracic and lumbar spine normal to inspection Skin: General skin exam: no rashes or lesions noted Neuro: General: patient oriented x3, no focal motor deficits and normal sensation to monofilament Cranial nerves: Yes Equal, round and reactive pupils present Cognition (Neuro): normal cognition Speech: No Abnormal speech present Gait exam (Neuro): Normal gait present Motor exam (neuro): 5/5 motor strength present throughout Extrem: Other: To the right knee there is tenderness to the lateral aspect as well as the patellar area of the knee with no obvious deformity or swelling or warmth. Patient has full range of motion and no ligamental laxity. No posterior knee pain or calf pain. NO left knee pain at this time with reports of instability with walking General: Yes normal to inspection Course Course Course Narrative: H/o bilateral knee pain with walking with instability for several weeks with injury to right knee 3 days ago. WIll check x-rays. 2100-x-ray show no fracture. They do show bilateral femoral notch which raises possibility of underlying ACL tears. Patient was placed in Javier wrap and given crutches for ambulation. Recommend she follow up with Orthopedics. Reviewed worrisome signs and symptoms of when to return to the emergency department. Comfortable discharge home. Procedures Procedure Narrative Procedure Narrative: javier wrap, crutches MDM - Extremity Injury (Lower) Medical Records Attestation: I reviewed the patient's medical records. Lab Data Attestation: I reviewed the patient's lab results. Imaging Data bilateral knee xray: Attestation: I personally reviewed and interpreted this imaging study as follows: Radiologist's impression: IMPRESSION: No fracture. Bilateral femoral notch raise possibility of underlying soft tissue derangement including ACL tear. There is no joint effusion however. Clinical correlation recommended. If patient remain symptomatic consider correlation with MRI. Discharge Plan Discharge Clinical Impression: Right knee sprain Patient Disposition: Home, Self-Care Instructions: Knee Sprain (ED) Additional Instructions: Ice, elevation, crutches for ambulation Follow-up with Orthopedics Saturday Prescriptions: No Action loratadine 10 mg tablet 10 mg PO DAILY Qty: 30 RF: 3 ibuprofen 800 mg tablet 800 mg PO Q8H PRN (Reason: pain) Qty: 14 RF: 0 acetaminophen [Tylenol Extra Strength] 500 mg tablet 1,000 mg PO QID PRN (Reason: fever or pain) Qty: 14 RF: 0 sodium chloride [Bladen Saline] 0.65 % aerosol,spray 2 spray intranasal BID 5 Days Qty: 50 RF: 1 multivitamin Tablet 1 tab PO DAILY RF: 0 Mirena 20 mcg/24 hours (6 yrs) 52 mg intrauterine device intrauterine RF: 0 Referrals: Garry Bhat MD [Physician] - 2 days Interventions: ED Discharge Assessment Last Done: 08/19/20 21:30 Discharge Date/Time: 08/19/20 20:46
== END 2020-08-19 20:46 | disposition home or self-care (01) ==
PROVIDERS: Emergency Provider Internal Medicine; PCP Internal Medicine
DX: S83.91XA Sprain of unspecified site of right knee, initial encounter (principal); M25.561 Pain in right knee; M25.562 Pain in left knee; X58.XXXA Exposure to other specified factors, initial encounter; Y93.9 Activity, unspecified; Y92.9 Unspecified place or not applicable; Y99.9 Unspecified external cause status; Z79.899 Other long term (current) drug therapy
CPT/HCPCS: 73562; 99283

== ENCOUNTER → 2020-08-31 07:49 | Outpatient (BNVA) | payer OTHER, SELFPAY | PROVIDERS: Visit Provider Orthopaedic Surgery | DX: M25.361 Other instability, right knee (principal); M25.561 Pain in right knee | CPT/HCPCS: 99202 ==

== ENCOUNTER 2020-12-26 07:56 | Outpatient (REF) | payer OTHER, SELFPAY ==
[2020-12-28 20:27] LABS: TS Negative Control Passed; TS Panel A 0; TS Panel B 0; TS Positive Control Passed; TSpotTB Negative (Negative)
== END 2020-12-26 07:57 | disposition home or self-care (01) ==
LOC: HO.LAB 07:56
PROVIDERS: PCP Internal Medicine; Visit Provider Nurse Practitioner Acute Care
DX: Z11.1 Encounter for screening for respiratory tuberculosis (principal)
CPT/HCPCS: 36415; 86481

== ENCOUNTER 2021-04-26 09:53 | Outpatient (REF) | payer OTHER, SELFPAY ==
[2021-04-27 05:24] LABS: CT PCR NOT DETECTED (Not Detect.); NG PCR NOT DETECTED (Not Detect.)
[2021-04-27 15:44] LABS: BV Int Neg Control Negative (Negative); BV Int Pos Control Positive (Positive)
[2021-04-28 19:32] LABS: HPV mRNA E6/E7 rflx Not Detected (Not Detected)
== END 2021-04-26 09:54 | disposition home or self-care (01) ==
LOC: HO.LAB 09:53
PROVIDERS: PCP Internal Medicine; Visit Provider Advanced Practice Midwife
DX: Z01.419 Encounter for gynecological examination (general) (routine) without abnormal findings (principal); Z11.51 Encounter for screening for human papillomavirus (HPV); Z20.2 Contact with and (suspected) exposure to infections with a predominantly sexual mode of transmission
CPT/HCPCS: 81025; 87480; 87491; 87510; 87591; 87624; 87660; 88142

== ENCOUNTER 2021-04-27 13:49 | Outpatient (REF) | payer OTHER, SELFPAY ==
--- NOTE | ~2021-04-27 | MM_ITS ---
EXAMINATION: MM DIAGNOSTIC DIGITAL BREAST TOMOSYNTHESIS, BILATERAL US DIAGNOSTIC ULTRASOUND BREAST, RIGHT CLINICAL INFORMATION: 40-year-old with palpable nodule subareolar right breast. Intermittent trace right clear nipple discharge. Intermittent pain lateral right breast. Family history breast cancer, maternal grandmother. The lifetime risk of breast cancer based on the Tyrer-Cuzick Model is 14%. COMPARISON: Mammography: 06/25/2018, ultrasound right breast 06/29/2019, 06/25/2018 TECHNIQUE: Digital breast tomosynthesis is performed in both the craniocaudal and mediolateral oblique views along with computer-aided detection (CAD). Synthesized 2D images are generated from the tomosynthesis. Ultrasound right breast is targeted to the retroareolar region and lateral right breast. Grayscale imaging and color Doppler are performed without and with harmonics. FINDINGS: There are scattered areas of fibroglandular density (ACR BI-RADS breast composition Category b). The left breast is unremarkable. There is no interval mass or architectural abnormality. Neither breast shows abnormal calcifications. There are some benign dermal calcifications at the bilateral posterior medial breasts. The axilla and skin contours are unremarkable. There is no skin thickening or coarsening of the Fabian's ligaments. The right breast has new 1.0 cm smooth nodule 5:00 subareolar region corresponding to the area of palpable concern. Remainder of right breast is unremarkable. Ultrasound right breast demonstrates 1.0 cm an incidental cyst with increased through-transmission of sound at site of clinical concern subareolar 5:00-6:00 position measuring 1 cm in size. There are swirling low-level internal echoes consistent with fluid protein content and/or cholesterol crystals. No solid component. No peripheral or internal color flow. No focal duct ectasia or intraductal color flow. No solid mass or architectural abnormality. Additional imaging lateral right breast unremarkable. Results are discussed with the patient at time of visit. The palpable concern subareolar right breast corresponds to an incidental cyst measuring 1.0 cm. If the unilateral nipple discharge is persistent, further assessment may be obtained with MRI without and with contrast. MM/MM tomosynthesis diagnostic BI IMPRESSION: 1. No mammographic evidence of malignancy or inflammatory changes. 2. 1 cm cyst subareolar right breast corresponding to palpable concern. ASSESSMENT: BI-RADS 2: Benign RECOMMENDATION: 1. Patient's intermittent right nipple discharge may be managed based on the clinical impression. If persistent or increasing, further assessment with fluid cytology and/or breast MRI may be considered. 2. Otherwise, routine annual screening mammography. This patient's information was entered into a reminder system with a target due date for their next mammogram.
== END 2021-04-27 13:50 | disposition home or self-care (01) ==
LOC: HO.MAMMO 13:49
PROVIDERS: PCP Internal Medicine; Visit Provider Internal Medicine
DX: N63.41 Unspecified lump in right breast, subareolar (principal)
CPT/HCPCS: 76642; 77062; 77066

== ENCOUNTER 2021-06-09 08:14 | Outpatient (REF) | payer OTHER, SELFPAY ==
[2021-06-09 08:40] LABS: MANUAL DIFF FLAG NO
[2021-06-09 09:16] LABS: Basophils Absolute Auto 0.1 X10*3/uL (0.0-0.2); Basophils Percent Auto 0.7 % (0-2); Eosinophils Absolute Auto 0.1 X10*3/uL (0.0-0.4); Eosinophils Percent Auto 0.7 % (0-4); Hematocrit 41.5 % (37.0-47.0); Hemoglobin 13.7 g/dl (12.0-16.0); Imm Gran Abs Auto 0.02 X10*3/uL (0.00-0.03); Imm Gran Pct Auto 0.3 % (0.0-0.4); Lymphocytes Absolute Auto 2.2 X10*3/uL (1.2-4.9); Lymphocytes Percent Auto 29.5 % (20-40); Mean Corpuscular Hemoglobin 28.7 pg (27.0-33.0); Mean Platelet Volume 11.8 fL (9.4-12.3); Monocytes Absolute Auto 0.4 X10*3/uL (0.1-1.2); Monocytes Percent Auto 5.3 % (2-11); Neutrophils Absolute Auto 4.6 x10*3/uL (2.0-8.3); Neutrophils Percent Auto 63.5 % (45-73); Platelet Count 346 X10*3/uL (160-400); Red Blood Count 4.77 X10*6/uL (4.20-5.50); Red Cell Distribution Width 12.3 % (11.0-16.0); White Blood Count 7.3 X10*3/uL (4.8-10.8)
[2021-06-09 09:48] LABS: Alanine Aminotransferase 15 U/L (0-31); Albumin Level 4.2 g/dL (3.5-5.0); Alkaline Phosphatase 71 U/L (39-117); Anion Gap 9 (12-20); Aspartate Amino Transferase 18 U/L (5-31); Bilirubin Total 0.4 mg/dL (0.0-1.0); Blood Urea Nitrogen 11 mg/dL (9-16); Calcium 9.7 mg/dL (8.4-10.2); Carbon Dioxide 30 mmol/L (22-29); Chloride 105 mmol/L (96-108); Cholesterol 181 mg/dL; Estimated Glomerular Filt Rate > 60; Glucose Fasting 88 mg/dL (60-99); HDL Cholesterol 39 mg/dL; LDL Cholesterol Calculated 114 mg/dl; Potassium 5.2 mmol/L (3.3-5.1); Sodium 139 mmol/L (135-145); Total Protein 7.2 g/dL (6.5-8.0); Triglycerides 140 mg/dL
[2021-06-09 10:07] LABS: TSH reflex Free T4 1.72 uIU/mL (0.32-4.0); Vitamin D 25-OH Total 20.6 ng/mL (>30)
== END 2021-06-09 08:15 | disposition home or self-care (01) ==
LOC: HO.LAB 08:14
PROVIDERS: PCP Internal Medicine; Visit Provider Internal Medicine
DX: Z00.00 Encounter for general adult medical examination without abnormal findings (principal); E55.9 Vitamin D deficiency, unspecified
CPT/HCPCS: 36415; 80053; 80061; 82306; 84443; 85025

== ENCOUNTER 2021-06-15 09:12 | Outpatient (REF) | payer OTHER, SELFPAY ==
[2021-06-15 09:26] LABS: Appearance Urine CLEAR; Color Urine YELLOW; Glucose Urine UA NEG (NEG); Leukocyte Esterase Urine NEG (NEG); Nitrite Urine NEG (NEG); Urine Blood NEG (NEG); Urine Ketones NEG (NEG); Urine Protein NEG (NEG-TRACE)
== END 2021-06-15 09:13 | disposition home or self-care (01) ==
LOC: HO.LNP 09:12
PROVIDERS: Visit Provider Internal Medicine
DX: Z00.00 Encounter for general adult medical examination without abnormal findings (principal)
CPT/HCPCS: 81003

== ENCOUNTER 2021-06-16 21:03 | Emergency (ER) | payer OTHER, SELFPAY ==
[2021-06-16 22:30] VITALS: BP 120/70; PULSE 72; RESP 18; TEMP 36.6; O2SAT 100; BMI 29.2
--- NOTE | 2021-06-17 00:05 | PC.NURSE ---
pt difficult draw, two attempts made in triage.
[2021-06-17 02:02] LABS: Appearance Urine CLEAR; Color Urine YELLOW; Glucose Urine UA NEG (NEG); Leukocyte Esterase Urine TRACE (NEG); Nitrite Urine NEG (NEG); Specific Gravity - Urine 1.015 (1.005-1.025); Urine Blood NEG (NEG); Urine Ketones NEG (NEG); Urine Protein NEG (NEG-TRACE)
[2021-06-17 02:03] LABS: UPreg QC Valid YES; Urine Pregnancy NEGATIVE (NEGATIVE)
[2021-06-17 02:12] VITALS: BP 108/77; PULSE 67; RESP 16; TEMP 36.8; O2SAT 99
[2021-06-17 02:13] LABS: Basophils Absolute Auto 0.1 X10*3/uL (0.0-0.2); Basophils Percent Auto 0.5 % (0-2); Eosinophils Percent Auto 0.3 % (0-4); Hemoglobin 12.9 g/dl (12.0-16.0); Imm Gran Abs Auto 0.04 X10*3/uL (0.00-0.03); Imm Gran Pct Auto 0.3 % (0.0-0.4); Lymphocytes Absolute Auto 2.6 X10*3/uL (1.2-4.9); Lymphocytes Percent Auto 21.7 % (20-40); MANUAL DIFF FLAG NO; Mean Corpuscular HGB Conc 32.3 g/dl (31.0-35.0); Mean Corpuscular Hemoglobin 28.9 pg (27.0-33.0); Mean Corpuscular Volume 89.7 fL (80.0-98.0); Mean Platelet Volume 11.5 fL (9.4-12.3); Monocytes Absolute Auto 0.6 X10*3/uL (0.1-1.2); Monocytes Percent Auto 4.9 % (2-11); Neutrophils Absolute Auto 8.7 x10*3/uL (2.0-8.3); Neutrophils Percent Auto 72.3 % (45-73); Platelet Count 307 X10*3/uL (160-400); Red Blood Count 4.46 X10*6/uL (4.20-5.50); Red Cell Distribution Width 12.6 % (11.0-16.0)
[2021-06-17 02:14] LABS: Bacteria Urine TRACE /LPF; Mucus Urine TRACE /LPF; RBC Urine 0-2 /HPF (0); Squamous Epithelial Cell Urine 2+ /LPF
[2021-06-17 02:30] LABS: Alanine Aminotransferase 10 U/L (0-31); Albumin Level 4.1 g/dL (3.5-5.0); Alkaline Phosphatase 62 U/L (39-117); Anion Gap 13 (12-20); Aspartate Amino Transferase 14 U/L (5-31); Bilirubin Total 0.4 mg/dL (0.0-1.0); Blood Urea Nitrogen 7 mg/dL (9-16); Calcium 9.4 mg/dL (8.4-10.2); Carbon Dioxide 26 mmol/L (22-29); Chloride 105 mmol/L (96-108); Creatinine Clr Calc Pharmacy 98.9; Estimated Glomerular Filt Rate > 60; Glucose Random 130 mg/dL (60-115); Lipase 36 U/L (8-78); Sodium 140 mmol/L (135-145); Total Protein 6.9 g/dL (6.5-8.0)
--- NOTE | 2021-06-17 02:33 | ED.ABDPAIN ---
HPI - Abdominal Pain General Chief Complaint: Abdominal Pain Stated Complaint: Abdominal pain Time Seen by Provider: 06/17/21 02:18 Source: patient Mode of arrival: ambulatory Limitations: no limitations History of Present Illness HPI narrative: 40-year-old female who presents emergency department for evaluation of abdominal pain. The patient states that the pain started yesterday after eating dinner. She states that around 18:00 hours she ate white rice, salad and BUN strips. Approximately 15-20 minutes after eating she developed pain in her epigastric area. She states the pain is been constant fullness like pain which is tender when she pushes over her epigastric area. The patient had associated nausea with no vomiting. She also feels distended. The pain does not radiate to her back or shoulders. She states that this is the 1st episode of this type of pain. She denied fever, chills, chest pain, shortness of breath. She has had no change in her bowel movements. She denies frequency, urgency or dysuria. Patient has surgical history of an appendectomy, umbilical hernia repair and liposuction. Related Data Home Medications Medication Instructions Recorded Confirmed multivitamin 1 tab PO DAILY 12/02/19 05/15/21 levonorgestrel 20 mcg/24 hours (7 INTRAUTERINE 06/20/20 05/15/21 yrs) 52 mg intrauterine device (Mirena) Previous Rx's Medication Instructions Recorded omeprazole 20 mg tablet,delayed 20 mg PO DAILY #30 tab 06/17/21 release Allergies Allergy/AdvReac Type Severity Reaction Status Date / Time Penicillins [PENICILLINS] Allergy Severe HIVES Verified 06/16/21 22:34 amoxicillin [AMOXICILLIN] Allergy Mild HIVES Verified 06/16/21 22:34 eggs Allergy Unknown vomiting, Verified 06/16/21 22:34 rash sesame seed Allergy Shortness Verified 06/16/21 22:34 of Breath peanuts Allergy Unknown Unknown Uncoded 05/15/21 10:55 tree nuts Allergy Unknown nausea and Uncoded 05/15/21 10:55 vomiting Review of Systems Review of Systems Yes all other systems are reviewed and are negative [facility] Past Medical History [facility] Narrative: Social history: She denies tobacco use. She denies alcohol use. She denies drug use. Medical History Back pain Breast cyst COVID-19 vaccine series completed Ganglion cyst of finger Obesity (BMI 30-39.9) Ovarian cyst Umbilical hernia Surgical History H/O hernia repair History of appendectomy Family History Family History Maternal Grandmother Breast cancer Social History Social History Housing: Apartment Are you a primary laboratory animal care veterinarian to a significant other at home: No Do you presently have visiting nurse or other home services: No Alcohol intake: never Patient Tobacco Use Status: Never used Tobacco e-Cigarette/Vaping Use: Never Used Second Hand Smoke Exposure: No Advance Directives: No Advance Directives Information Provided: Yes Patient : No service: No Current occupational status: unemployed Current occupation: rt handed Sexual orientation: Straight/Heterosexual Gender identity: Female Cognitive needs: No Hearing needs: No Vision needs: No Physical Exam ED Vital Signs: Vital Signs - 24 hr 06/16/21 22:30 06/17/21 02:12 Temperature 97.8 F 98.2 F Pulse Rate 72 67 Respiratory Rate 18 16 Blood Pressure 120/70 108/77 Pulse Oximetry 100 99 BMI result Body Mass Index 29.2 Const General: cooperative and no acute distress Orientation/consciousness: oriented to person and oriented to place Limitations: no limitations HENMT Head: Yes normal to inspection, Yes normocephalic and Yes atraumatic Ears: external ears normal General nose exam: Normal external nose present Face and sinus: Yes normal facial exam Mouth: Normal oral and palatal mucosa present Throat: Yes posterior oropharynx normal Eyes General: appearance normal, both eyes and all related structures Pupils: Equal, round and reactive pupils present Neck Neck: Yes normal visual inspection, Yes no lymphadenopathy, Yes trachea midline and Yes supple Chest Chest palpation & inspection: normal inspection of the chest and normal palpation of entire chest wall Resp Effort & Inspection: normal respiratory effort and able to speak in complete sentences Auscultation: clear to auscultation bilaterally Cardio Rate: regular rate Rhythm: regular rhythm Heart sounds: S1 normal heart sound present, S2 normal heart sound present and no murmurs GI Inspection: Yes normal to inspection Palpation (GI): Soft to palpation, Tenderness to palpation present (GI) in the epigastrum (Moderate) and no guarding Auscultation: normal bowel sounds General: Yes no CVA tenderness Back/Spine/Pelvis Back: no CVA tenderness Skin General skin exam: no rashes or lesions noted Neuro General: oriented to person and oriented to place Cranial nerves: Yes CN's II-XII intact bilaterally and Yes Equal, round and reactive pupils present Cognition (Neuro): normal cognition Motor exam (neuro): 5/5 motor strength present throughout Extrem General: Yes normal to inspection Psych Appearance: grossly normal Speech and movement: Normal speech and movement present Affect: normal affect Attitude: cooperative Thought process: Normal thought process present Thought content: Normal thought content present Course Course Course Narrative: 40-year-old female who presents emergency department for evaluation of epigastric pain that began yesterday approximately 30 minutes after eating dinner. The patient had associated nausea and feels distended otherwise has no other symptoms. Patient has a history of umbilical hernia repair and appendectomy. Vital signs were normal. Abdominal exam did reveal epigastric tenderness with no right upper quadrant tenderness. Differential includes was not limited to esophagitis, gastritis, cholecystitis, pancreatitis. Laboratory evaluation was ordered. The patient's pain was treated with Maalox 30 cc, viscous lidocaine 10 cc and 10 cc orally. 0316: Laboratory evaluation WBC elevated 12,000. CMP was normal except for an elevated glucose of 130. Lipase was normal 36. The patient's pain did improve after receiving the above medications. Patient's presentation is most likely consistent with gastritis and I did discuss this with her. Patient was started on Prilosec 20 mg once a day for 3 weeks. She was also advised to take antacids. She was given printed and verbal instructions and discharged home. MDM - Abdominal Pain Lab Data Result diagrams: 06/17/21 02:07 06/17/21 02:07 Labs: Lab Results 06/17/21 06/17/21 06/17/21 Range/Units 01:50 01:50 02:07 WBC 12.0 H (4.8-10.8) X10*3/uL RBC 4.46 (4.20-5.50) X10*6/uL Hgb 12.9 (12.0-16.0) g/dl Hct 40.0 (37.0-47.0) % MCV 89.7 (80.0-98.0) fL MCH 28.9 (27.0-33.0) pg MCHC 32.3 (31.0-35.0) g/dl RDW 12.6 (11.0-16.0) % Plt Count 307 (160-400) X10*3/uL MPV 11.5 (9.4-12.3) fL Immature Gran % (Auto) 0.3 (0.0-0.4) % Neut % (Auto) 72.3 (45-73) % Lymph % (Auto) 21.7 (20-40) % [place] % (Auto) 4.9 (2-11) % Eos % (Auto) 0.3 (0-4) % Baso % (Auto) 0.5 (0-2) % Lymph # (Auto) 2.6 (1.2-4.9) X10*3/uL [place] # (Auto) 0.6 (0.1-1.2) X10*3/uL Eos # (Auto) 0.0 (0.0-0.4) X10*3/uL Baso # (Auto) 0.1 (0.0-0.2) X10*3/uL Abs Immat Gran (auto) 0.04 H (0.00-0.03) X10*3/uL Absolute Neuts (auto) 8.7 H (2.0-8.3) x10*3/uL Absolute Nucleated RBC 0.000 (0.0-0.012) X10*3/uL Nucleated RBC % (auto) 0.0 (0.0-0.2) /100WBC Sodium (135-145) mmol/L Potassium (3.3-5.1) mmol/L Chloride (96-108) mmol/L Carbon Dioxide (22-29) mmol/L Anion Gap (12-20) BUN (9-16) mg/dL Creatinine (0.5-1.4) mg/dL Estim Creat Clear Calc Estimated GFR Random Glucose (60-115) mg/dL Calcium (8.4-10.2) mg/dL Total Bilirubin (0.0-1.0) mg/dL AST (5-31) U/L ALT (0-31) U/L Alkaline Phosphatase (39-117) U/L Total Protein (6.5-8.0) g/dL Albumin (3.5-5.0) g/dL Lipase (8-78) U/L Urine Color YELLOW Urine Appearance CLEAR Urine pH 7.0 (5.0-8.0) Ur Specific [place] 1.015 (1.005-1.025) Urine Protein NEG (NEG-TRACE) MG/DL Urine Glucose (UA) NEG (NEG) MG/DL Urine Ketones NEG (NEG) MG/DL Urine Blood NEG (NEG) Urine Nitrite NEG (NEG) Ur Leukocyte Esterase TRACE H (NEG) Urine RBC 0-2 (0) /HPF Urine WBC 1-4 (0-4) /HPF Ur Squamous Epith Cells 2+ /LPF Urine Bacteria TRACE /LPF Urine Mucus TRACE /LPF Urine Test NEGATIVE (NEGATIVE) 06/17/21 Range/Units 02:07 WBC (4.8-10.8) X10*3/uL RBC (4.20-5.50) X10*6/uL Hgb (12.0-16.0) g/dl Hct (37.0-47.0) % MCV (80.0-98.0) fL MCH (27.0-33.0) pg MCHC (31.0-35.0) g/dl RDW (11.0-16.0) % Plt Count (160-400) X10*3/uL MPV (9.4-12.3) fL Immature Gran % (Auto) (0.0-0.4) % Neut % (Auto) (45-73) % Lymph % (Auto) (20-40) % [place] % (Auto) (2-11) % Eos % (Auto) (0-4) % Baso % (Auto) (0-2) % Lymph # (Auto) (1.2-4.9) X10*3/uL [place] # (Auto) (0.1-1.2) X10*3/uL Eos # (Auto) (0.0-0.4) X10*3/uL Baso # (Auto) (0.0-0.2) X10*3/uL Abs Immat Gran (auto) (0.00-0.03) X10*3/uL Absolute Neuts (auto) (2.0-8.3) x10*3/uL Absolute Nucleated RBC (0.0-0.012) X10*3/uL Nucleated RBC % (auto) (0.0-0.2) /100WBC Sodium 140 (135-145) mmol/L Potassium 4.0 D (3.3-5.1) mmol/L Chloride 105 (96-108) mmol/L Carbon Dioxide 26 (22-29) mmol/L Anion Gap 13 (12-20) BUN 7 L (9-16) mg/dL Creatinine 0.74 (0.5-1.4) mg/dL Estim Creat Clear Calc 98.9 Estimated GFR > 60 Random Glucose 130 H (60-115) mg/dL Calcium 9.4 (8.4-10.2) mg/dL Total Bilirubin 0.4 (0.0-1.0) mg/dL AST 14 (5-31) U/L ALT 10 (0-31) U/L Alkaline Phosphatase 62 (39-117) U/L Total Protein 6.9 (6.5-8.0) g/dL Albumin 4.1 (3.5-5.0) g/dL Lipase 36 (8-78) U/L Urine Color Urine Appearance Urine pH (5.0-8.0) Ur Specific [place] (1.005-1.025) Urine Protein (NEG-TRACE) MG/DL Urine Glucose (UA) (NEG) MG/DL Urine Ketones (NEG) MG/DL Urine Blood (NEG) Urine Nitrite (NEG) Ur Leukocyte Esterase (NEG) Urine RBC (0) /HPF Urine WBC (0-4) /HPF Ur Squamous Epith Cells /LPF Urine Bacteria /LPF Urine Mucus /LPF Urine Test (NEGATIVE) Discharge Plan Discharge Clinical Impression: Gastritis Qualifiers: Gastritis type: unspecified gastritis Chronicity: acute Gastritis bleeding: without bleeding Qualified Code(s): K29.00 - Acute gastritis without bleeding Patient Disposition: Home, Self-Care Instructions: Gastritis (ED) Additional Instructions: Your laboratory evaluation was unremarkable. Your symptoms and exam findings are consistent with inflammation of your stomach (gastritis) Take Prilosec (omeprazole) 20 mg pills, 1 pill once a day for 1 month. This medication shuts off your acid production and let us the inflammation in your esophagus and stomach heal. Also for the next week you should take antacids such as Tums or Maalox. Follow-up with your doctor in 2 days. Please return to the emergency department if your symptoms get worse or if you develop any symptoms that are concerning to you. Prescriptions: New omeprazole 20 mg tablet,delayed release (DR/EC) 20 mg PO DAILY Qty: 30 0RF No Action multivitamin Tablet 1 tab PO DAILY 0RF Mirena 20 mcg/24 hours (6 yrs) 52 mg intrauterine device intrauterine 0RF
[2021-06-17] MEDS: Lidocaine HCl Viscous 2 % 15 ML SOLUTION 10 ML PO (02:56)
[2021-06-17] MEDS: Magnesium Hydrox/Alum Hydrox 30 ML ORAL.SUSP PO (02:57)
[2021-06-17] MEDS: PHENobarb/Hyoscy/Atropine/Scop 10 ML ELIXIR PO (02:57)
[2021-06-17] MEDS: Omeprazole 20 MG CAPSULE.DR PO (03:30)
== END 2021-06-17 03:35 | disposition home or self-care (01) ==
PROVIDERS: Emergency Provider Emergency Medicine Emergency Medical Services; PCP Internal Medicine
DX: K29.00 Acute gastritis without bleeding (principal)
CPT/HCPCS: 36415; 80053; 81001; 81003; 81025; 83690; 85025; 99283; 99285

== ENCOUNTER 2021-08-30 09:47 | Outpatient (REF) | payer OTHER, SELFPAY ==
[2021-08-30 14:17] LABS: CT PCR NOT DETECTED (Not Detect.); NG PCR NOT DETECTED (Not Detect.)
[2021-08-31 12:33] LABS: BV Int Neg Control Negative (Negative); BV Int Pos Control Positive (Positive)
[2021-09-06 08:32] LABS: HPV mRNA E6/E7 rflx Not Detected (Not Detected)
== END 2021-08-30 09:48 | disposition home or self-care (01) ==
LOC: HO.LAB 09:47
PROVIDERS: Visit Provider Advanced Practice Midwife
DX: Z12.4 Encounter for screening for malignant neoplasm of cervix (principal); Z11.51 Encounter for screening for human papillomavirus (HPV); Z11.3 Encounter for screening for infections with a predominantly sexual mode of transmission; Z97.5 Presence of (intrauterine) contraceptive device
CPT/HCPCS: 87480; 87491; 87510; 87591; 87624; 87660; 88142; 99212

== ENCOUNTER 2022-03-18 02:53 | Emergency (ER) | payer OTHER, SELFPAY ==
[2022-03-18 02:54] VITALS: BP 110/45; PULSE 64; RESP 18; TEMP 36.4; O2SAT 100; BMI 28.3
--- NOTE | 2022-03-18 02:58 | ECG_ITS ---
Test Reason : CHEST PAIN Blood Pressure : / mmHG Vent. Rate : 071 BPM Atrial Rate : 071 BPM P-R Int : 118 ms QRS Dur : 074 ms QT Int : 400 ms P-R-T Axes : -08 066 045 degrees QTc Int : 434 ms Normal sinus rhythm Nonspecific T wave abnormality Abnormal ECG When compared with ECG of 06-FEB-2013 17:39, No significant change was found Referred By: Generic ED Physician Electronically Signed By:ROGELIO HE MD
[2022-03-18 03:23] LABS: MANUAL DIFF FLAG NO
[2022-03-18 03:24] LABS: Basophils Percent Auto 0.4 % (0-2); Eosinophils Absolute Auto 0.2 X10*3/uL (0.0-0.4); Eosinophils Percent Auto 1.5 % (0-4); Hematocrit 40.7 % (37.0-47.0); Hemoglobin 13.8 g/dl (12.0-16.0); Imm Gran Abs Auto 0.03 X10*3/uL (0.00-0.03); Imm Gran Pct Auto 0.3 % (0.0-0.4); Lymphocytes Absolute Auto 2.2 X10*3/uL (1.2-4.9); Lymphocytes Percent Auto 22.6 % (20-40); Mean Corpuscular HGB Conc 33.9 g/dl (31.0-35.0); Mean Corpuscular Hemoglobin 29.2 pg (27.0-33.0); Mean Platelet Volume 11.8 fL (9.4-12.3); Monocytes Absolute Auto 0.5 X10*3/uL (0.1-1.2); Neutrophils Absolute Auto 6.8 x10*3/uL (2.0-8.3); Neutrophils Percent Auto 70.2 % (45-73); Platelet Count 274 X10*3/uL (160-400); Red Blood Count 4.73 X10*6/uL (4.20-5.50); Red Cell Distribution Width 12.3 % (11.0-16.0); White Blood Count 9.8 X10*3/uL (4.8-10.8)
[2022-03-18 03:45] LABS: Alanine Aminotransferase 12 U/L (0-31); Alkaline Phosphatase 56 U/L (39-117); Anion Gap 12 (12-20); Aspartate Amino Transferase 14 U/L (5-31); Bilirubin Total 0.3 mg/dL (0.0-1.0); Blood Urea Nitrogen 11 mg/dL (9-16); Calcium 9.2 mg/dL (8.4-10.2); Carbon Dioxide 23 mmol/L (22-29); Chloride 108 mmol/L (96-108); Creatinine Clr Calc Pharmacy 99.1; Estimated Glomerular Filt Rate > 60; Glucose Random 96 mg/dL (60-115); Lipase 24 U/L (8-78); Potassium 3.9 mmol/L (3.3-5.1); Sodium 139 mmol/L (135-145); Total Protein 6.6 g/dL (6.5-8.0)
[2022-03-18 03:46] LABS: Troponin-I High Sensitivity < 3.5 ng/L (<3.5-17.0)
[2022-03-18 04:18] LABS: HCG Quantitative < 2 mIU/mL
--- NOTE | 2022-03-18 04:19 | ED_ITS ---
HPI - Chest Pain General Chief Complaint: Chest Pain Stated Complaint: Chest Pain Time Seen by Provider: 03/18/22 03:53 Source: patient Mode of arrival: ambulatory History of Present Illness HPI narrative: 41-year-old female who suffers from GERD presents with burning, increasing epigastric pain that extends up in to the back of her throat and states that she wakes up with the herbal taste in her mouth and she has run out of her antacid. She otherwise denies any fever, chills, shortness of breath, chest pain/palpitations. Related Data Home Medications Medication Instructions Recorded Confirmed multivitamin 1 tab PO DAILY 12/02/19 08/30/21 levonorgestrel 20 mcg/24 hours (8 intrauterine 06/20/20 08/30/21 yrs) 52 mg intrauterine device (Mirena) loratadine 10 mg tablet 10 mg PO DAILY 06/20/21 08/30/21 Previous Rx's Medication Instructions Recorded epinephrine 0.3 mg/0.3 mL 0.3 mg (0.3 mL) IM Q4H PRN 06/20/21 injection, auto-injector anaphylaxis #2 ea omeprazole 20 mg tablet,delayed 20 mg PO DAILY #30 tabs 06/20/21 release omeprazole 20 mg capsule,delayed 20 mg PO DAILY #30 caps 03/18/22 release Allergies Allergy/AdvReac Type Severity Reaction Status Date / Time Penicillins [PENICILLINS] Allergy Severe HIVES Verified 08/30/21 09:07 amoxicillin [AMOXICILLIN] Allergy Mild HIVES Verified 08/30/21 09:07 eggs Allergy Unknown vomiting, Verified 08/30/21 09:07 rash sesame seed Allergy Shortness Verified 08/30/21 09:07 of Breath peanuts Allergy Unknown Unknown Uncoded 08/30/21 09:07 tree nuts Allergy Unknown nausea and Uncoded 08/30/21 09:07 vomiting Review of Systems Review of Systems: Pertinent positives and negatives as stated in HPI PMFSH Past Medical History Source: nursing notes reviewed Medical History Back pain Breast cyst COVID-19 vaccine series completed Ganglion cyst of finger Obesity (BMI 30-39.9) Ovarian cyst Umbilical hernia Surgical History H/O hernia repair History of appendectomy Family History Family History Maternal Grandmother Breast cancer Social History Social History Housing: Apartment Are you a primary child care development specialist to a significant other at home: No Do you presently have visiting nurse or other home services: No Alcohol intake: never Patient Tobacco Use Status: Never used Tobacco e-Cigarette/Vaping Use: Never Used Second Hand Smoke Exposure: No Advance Directives: No service: No Current occupational status: unemployed Current occupation: rt handed Sexual orientation: Straight/Heterosexual Gender identity: Female Cognitive needs: No Hearing needs: No Vision needs: Yes Physical Exam Vital Signs: Vital Signs: Last Vital Signs Temp 97.6 F 03/18/22 02:54 Pulse 64 03/18/22 02:54 Resp 18 03/18/22 02:54 BP 110/45 L 03/18/22 02:54 Pulse Ox 100 03/18/22 02:54 O2 Del Method 03/18/22 02:54 BMI result Body Mass Index 28.3 VITAL SIGNS: Reviewed. GENERAL: Well developed, well nourished, in no acute distress. HEAD: Normocephalic/atraumatic EYES: PERRLA, EOMI LUNGS: Normal breath sounds. No adventitious sounds or accessory muscle use. SpO2<100> CARDIOVASCULAR: Regular rate and rhythm without noted murmurs ABDOMEN: Soft, non-tender, non-distended with bowel sounds. MUSCULOSKELETAL: No tenderness, deformities, or effusions noted on gross inspection. EXTREMITIES: No cyanosis, clubbing or edema. SKIN: Inspection of the skin reveals no rashes NEUROLOGIC: Alert and oriented x 4. Strength and sensation to light touch were grossly intact x 4. Medical Decision Making Medical Decision Making MDM Narrative: 41-year-old female with burning up into her chest. Reviewed all investigations and my interpretation is a patient has GERD. Patient was provided with GI cocktail and Carafate. Differential Diagnosis Differential Diagnoses: The differential diagnosis associated with the presentation includes Please see the discussion above Lab Data [facility] Lab Attestation statement: I reviewed the patient's lab results. Please see the discussion above 03/18/22 03:19 03/18/22 03:19 Labs: Lab Results 03/18/22 03/18/22 03/18/22 Range/Units 03:19 03:19 03:19 WBC 9.8 (4.8-10.8) X10*3/uL RBC 4.73 (4.20-5.50) X10*6/uL Hgb 13.8 (12.0-16.0) g/dl Hct 40.7 (37.0-47.0) % MCV 86.0 (80.0-98.0) fL MCH 29.2 (27.0-33.0) pg MCHC 33.9 (31.0-35.0) g/dl RDW 12.3 (11.0-16.0) % Plt Count 274 (160-400) X10*3/uL MPV 11.8 (9.4-12.3) fL Immature Gran % (Auto) 0.3 (0.0-0.4) % Neut % (Auto) 70.2 (45-73) % Lymph % (Auto) 22.6 (20-40) % [place] % (Auto) 5.0 (2-11) % Eos % (Auto) 1.5 (0-4) % Baso % (Auto) 0.4 (0-2) % Lymph # (Auto) 2.2 (1.2-4.9) X10*3/uL [place] # (Auto) 0.5 (0.1-1.2) X10*3/uL Eos # (Auto) 0.2 (0.0-0.4) X10*3/uL Baso # (Auto) 0.0 (0.0-0.2) X10*3/uL Abs Immat Gran (auto) 0.03 (0.00-0.03) X10*3/uL Absolute Neuts (auto) 6.8 (2.0-8.3) x10*3/uL Absolute Nucleated RBC 0.000 (0.0-0.012) X10*3/uL Nucleated RBC % (auto) 0.0 (0.0-0.2) /100WBC Sodium 139 (135-145) mmol/L Potassium 3.9 (3.3-5.1) mmol/L Chloride 108 (96-108) mmol/L Carbon Dioxide 23 (22-29) mmol/L Anion Gap 12 (12-20) BUN 11 (9-16) mg/dL Creatinine 0.72 (0.5-1.4) mg/dL Estim Creat Clear Calc 99.1 Estimated GFR > 60 Random Glucose 96 (60-115) mg/dL Calcium 9.2 (8.4-10.2) mg/dL Total Bilirubin 0.3 (0.0-1.0) mg/dL AST 14 (5-31) U/L ALT 12 (0-31) U/L Alkaline Phosphatase 56 (39-117) U/L Troponin I High Sens < 3.5 (<3.5-17.0) ng/L Total Protein 6.6 (6.5-8.0) g/dL Albumin 4.0 (3.5-5.0) g/dL Lipase 24 (8-78) U/L Beta HCG, Quant < 2 mIU/mL Independent Interpretation I performed an independent interpretation of an: EKG Interpretation: Normal sinus rhythm, HR-71, no STEMI, MS/QRS/QTC is within normal limits. Discharge Plan Discharge Clinical Impression: GERD (gastroesophageal reflux disease), Gastritis Patient Disposition: Home, Self-Care Instructions: Gastritis (ED), Diet for Stomach Ulcers and Gastritis (ED), Gastroesophageal Reflux Disease (ED) Additional Instructions: 1. Resume all home medications as prescribed. 2. You are being provided with a prescription for antacid. 3. Please follow-up with your primary care provider. Return to the ER for any worsening symptoms. Prescriptions: New omeprazole 20 mg capsule,delayed release(DR/EC) 20 mg PO DAILY Qty: 30 0RF No Action loratadine 10 mg tablet 10 mg PO DAILY omeprazole 20 mg tablet,delayed release (DR/EC) 20 mg PO DAILY Qty: 30 0RF epinephrine 0.3 mg/0.3 mL auto-injector 0.3 mg IM Q4H PRN (Reason: anaphylaxis) Qty: 2 0RF multivitamin Tablet 1 tab PO DAILY Mirena 20 mcg/24 hours (6 yrs) 52 mg intrauterine device intrauterine Referrals: Stanford Waters MD [Primary Care Provider] -
--- NOTE | 2022-03-18 04:37 | PC.NURSE ---
pt c/o chest pain that is causing some discomfort in thrt aox4 resting quietly, while s/o at bedside
[2022-03-18 04:58] VITALS: BP 119/62; PULSE 67; RESP 17; TEMP 36.6; O2SAT 100
[2022-03-18] MEDS: Magnesium Hydrox/Alum Hydrox 30 ML ORAL.SUSP PO (05:07)
[2022-03-18] MEDS: Sucralfate Oral Suspension 1 GM/10 ML ORAL.SUSP PO (05:07)
[2022-03-18] MEDS: Lidocaine HCl Viscous 2 % 15 ML SOLUTION 10 ML MUCOUS MEM (05:08)
== END 2022-03-18 05:37 | disposition home or self-care (01) ==
PROVIDERS: Emergency Provider Student in an Organized Health Care Education/Training Program; PCP Internal Medicine
DX: K21.9 Gastro-esophageal reflux disease without esophagitis (principal); K29.70 Gastritis, unspecified, without bleeding; R07.89 Other chest pain; R10.13 Epigastric pain; Z79.899 Other long term (current) drug therapy
CPT/HCPCS: 36415; 80053; 83690; 84484; 84702; 85025; 93005; 99284; 99285

== ENCOUNTER 2022-04-28 09:56 | Outpatient (REF) | payer OTHER, SELFPAY ==
--- NOTE | ~2022-04-28 | MM_ITS ---
EXAMINATION: MM SCREENING DIGITAL BREAST TOMOSYNTHESIS, BILATERAL CLINICAL INFORMATION: Screening. Asymptomatic. The lifetime risk of breast cancer based on the Tyrer-Cuzick Model is 15%. COMPARISON: Mammography: 04/27/2021, 06/25/2018 TECHNIQUE: Digital breast tomosynthesis is performed in both the craniocaudal and mediolateral oblique views along with computer-aided detection (CAD). Synthesized 2D images are generated from the tomosynthesis. FINDINGS: There are scattered areas of fibroglandular density (ACR BI-RADS breast composition Category b). There are no significant masses, abnormal calcifications, or other abnormalities. No developing density or architectural abnormality. There is an incidental circumscribed oil cyst mid medial left breast, approximately 5 mm. There are benign dermal calcifications overlying the posterior medial bilateral breasts. The axilla are unremarkable. The skin contours are smooth. MM/MM tomosynthesis screening BI IMPRESSION: No mammographic evidence of malignancy. ASSESSMENT: BI-RADS 2: Benign RECOMMENDATION: Routine annual mammography screening. This patient's information was entered into a reminder system with a target due date for their next mammogram.
== END 2022-04-28 09:57 | disposition home or self-care (01) ==
LOC: HO.MAMMO 09:56
PROVIDERS: PCP Internal Medicine; Visit Provider Internal Medicine
DX: Z12.31 Encounter for screening mammogram for malignant neoplasm of breast (principal)
CPT/HCPCS: 77063; 77067

== ENCOUNTER 2022-04-30 10:59 | Outpatient (REF) | payer OTHER, SELFPAY ==
[2022-04-30 13:24] LABS: HBsAGNum1 0.32 S/CO (0.00-0.99); HIV AB/AG Nonreactive (Nonreactive); HIV Num 1 0.06 S/CO (0.00-0.99); Hepatitis B Surface Antigen Negative (Negative); Syphilis Screen Nonreactive (Nonreactive); ~HepC Num1 0.34 S/CO (0.00-0.79); ~Hepatitis C Antibody Nonreactive (Nonreactive)
[2022-05-01 06:50] LABS: CT PCR NOT DETECTED (Not Detect.); NG PCR NOT DETECTED (Not Detect.)
[2022-05-01 10:37] LABS: BV Int Neg Control Negative (Negative); BV Int Pos Control Positive (Positive)
[2022-05-05 06:04] LABS: HPV mRNA E6/E7 rflx Not Detected (Not Detected)
== END 2022-04-30 11:00 | disposition home or self-care (01) ==
LOC: HO.LNP 10:59
PROVIDERS: PCP Internal Medicine; Visit Provider Advanced Practice Midwife
DX: Z01.419 Encounter for gynecological examination (general) (routine) without abnormal findings (principal); Z11.51 Encounter for screening for human papillomavirus (HPV); Z11.4 Encounter for screening for human immunodeficiency virus [HIV]; F32.A Depression, unspecified; N92.1 Excessive and frequent menstruation with irregular cycle; Z20.2 Contact with and (suspected) exposure to infections with a predominantly sexual mode of transmission; Z97.5 Presence of (intrauterine) contraceptive device; Z87.42 Personal history of other diseases of the female genital tract
CPT/HCPCS: 0353U; 86780; 86803; 87340; 87389; 87480; 87510; 87624; 87660; 88142

== ENCOUNTER 2022-05-17 08:11 | Outpatient (REF) | payer OTHER, SELFPAY ==
--- NOTE | ~2022-05-17 | XR_ITS ---
EXAMINATION: XR HAND, LEFT CLINICAL INFORMATION: Pain and swelling base of thumb after fall February 2022 COMPARISON: None available. TECHNIQUE: PA, lateral, and oblique views of the left hand. FINDINGS: The bones and soft tissues are normal. No fracture. Alignment is anatomic. Joint spaces are maintained. No erosions or soft tissue calcifications. XR/XR hand LT min 3V IMPRESSION: Normal left hand.
[2022-05-17 09:14] LABS: Anion Gap 11 (12-20); Blood Urea Nitrogen 11 mg/dL (9-16); Calcium 9.1 mg/dL (8.4-10.2); Carbon Dioxide 27 mmol/L (22-29); Chloride 106 mmol/L (96-108); Cholesterol 158 mg/dL; Estimated Glomerular Filt Rate > 60; Glucose Fasting 86 mg/dL (60-99); HDL Cholesterol 34 mg/dL; LDL Cholesterol Calculated 105 mg/dl; Potassium 4.4 mmol/L (3.3-5.1); Sodium 140 mmol/L (135-145); Triglycerides 96 mg/dL
[2022-05-17 09:31] LABS: TSH reflex Free T4 1.72 uIU/mL (0.32-4.0); Vitamin D 25-OH Total 19.4 ng/mL (>30)
[2022-05-17 09:46] LABS: Appearance Urine Clear; Color Urine Yellow; Glucose Urine UA Negative (Negative); Leukocyte Esterase Urine Trace (Negative); Nitrite Urine Negative (Negative); PH 8.5 (5.0-9.0); Specific Gravity - Urine 1.025 (1.005-1.025); UMIC TRIGGER UACC YES; Urine Blood Negative (Negative); Urine Ketones Negative (Negative); Urine Protein Negative (Neg-Trace)
[2022-05-17 09:52] LABS: Bacteria Urine None Seen (None Seen); Hyaline Casts Urine 0-2 /LPF (0-2); RBC Urine 0-2 /HPF (0-2); Squamous Epithelial Cell Urine 0-2 /HPF (0-2); WBC Urine 0-5 /HPF (0-5)
== END 2022-05-17 08:12 | disposition home or self-care (01) ==
LOC: HO.LAB 08:11
PROVIDERS: PCP Internal Medicine; Visit Provider Internal Medicine
DX: Z00.00 Encounter for general adult medical examination without abnormal findings (principal); M79.645 Pain in left finger(s); E78.00 Pure hypercholesterolemia, unspecified; E55.9 Vitamin D deficiency, unspecified
CPT/HCPCS: 36415; 73130; 80048; 80061; 81001; 82306; 84443

== ENCOUNTER 2022-05-18 10:47 | Outpatient (REF) | payer OTHER, SELFPAY ==
--- NOTE | ~2022-05-18 | US_ITS ---
EXAMINATION: US PELVIS CLINICAL INFORMATION: Excessive and frequent menstruation with irregular cycle. COMPARISON: None available. TECHNIQUE: Ultrasound of the pelvis is performed using both transabdominal and transvaginal transducers along with Doppler. Transvaginal imaging is performed due to inadequate visualization transabdominally. FINDINGS: UTERUS: The uterus is anteverted and measures 8.0 x 4.0 x 4.5 cm. The double wall endometrial thickness is 0.8 cm. The uterus is smooth in contour and has normal myometrial echogenicity. No visible fibroid. There is an IUD visualized in the endometrial canal in correct position. ADNEXA: Both ovaries are visualized. There is normal color flow to the adnexa. There is no ovarian torsion. There is no pelvic ascites or fluid collection. Right ovary measures 4.2 x 2.1 x 4.2 cm and volume 19.4 mL. There are small anechoic cysts with the largest cyst with septation measuring 2.7 x 1.9 x 2.5 cm. Previously right ovary measured 4.0 x 1.5 x 2.7 cm Left ovary measures 2.8 x 1.5 x 1.9 cm and volume 4.2 mL. Previously left ovary measured 2.4 x 1.8 x 2.1 cm. There is a small amount of free fluid. US/US pelvic and transvaginal IMPRESSION: An intrauterine IUD is in correct position. Multiple small cysts in right ovary with the largest cyst with septation measuring 2.7 cm. Unremarkable left ovary
== END 2022-05-18 10:48 | disposition home or self-care (01) ==
LOC: HO.US 10:47
PROVIDERS: Visit Provider Advanced Practice Midwife
DX: N92.1 Excessive and frequent menstruation with irregular cycle (principal); Z97.5 Presence of (intrauterine) contraceptive device; Z87.42 Personal history of other diseases of the female genital tract
CPT/HCPCS: 76830; 76856

== ENCOUNTER → 2022-06-06 08:56 | Outpatient (BNVA) | payer OTHER, SELFPAY | PROVIDERS: PCP Internal Medicine; Referring Provider Internal Medicine; Visit Provider Surgery | DX: K29.00 Acute gastritis without bleeding (principal); L91.0 Hypertrophic scar | CPT/HCPCS: 99202; 99212 ==

== ENCOUNTER 2022-06-13 14:37 | Outpatient (REF) | payer OTHER, SELFPAY | END 2022-06-13 14:38 | disposition home or self-care (01) | LOC: HO.LNP 14:37 | PROVIDERS: Visit Provider Physician Assistant | DX: A04.8 Other specified bacterial intestinal infections (principal) | CPT/HCPCS: 87338 ==

== ENCOUNTER 2022-06-23 10:43 | Emergency (ER) | payer OTHER, SELFPAY ==
[2022-06-23 10:49] VITALS: BP 100/58; PULSE 841; RESP 18; TEMP 37; O2SAT 98; BMI 26.6
--- NOTE | 2022-06-23 10:53 | ED_ITS ---
HPI - General Adult General Chief complaint: General Medical Stated complaint: ear ache sinus infection Time Seen by Provider: 06/23/22 10:52 Source: patient Mode of arrival: ambulatory Limitations: no limitations History of Present Illness HPI narrative: 41-year-old female here with complaints of nasal congestion, rhinorrhea with green drainage, sinus pain/pressure, cough, ear pain for the last 1 week. Patient using Flonase and Claritin with continued symptoms. No fevers, chills, difficulty breathing, chest pain. Related Data Home Medications Medication Instructions Recorded Confirmed multivitamin 1 tab PO DAILY 12/02/19 06/06/22 levonorgestrel 21 mcg/24 hours (8 intrauterine 06/20/20 06/06/22 yrs) 52 mg intrauterine device (Mirena) omeprazole 20 mg capsule,delayed 20 mg PO DAILY 05/16/22 06/06/22 release Previous Rx's Medication Instructions Recorded epinephrine 0.3 mg/0.3 mL 0.3 mg (0.3 mL) IM Q4H PRN 06/20/21 injection, auto-injector anaphylaxis #2 ea methylcellulose (laxative) 500 mg 500 mg PO TID #90 tabs 06/06/22 tablet (Citrucel) sucralfate 1 gram tablet 1 g PO BID 4 weeks #56 tabs 06/06/22 fluticasone propionate 50 1 spray intranasal DAILY #9.9 mL 06/19/22 mcg/actuation nasal spray,suspension (Flonase Allergy Relief) loratadine 10 mg tablet 10 mg PO DAILY #90 tabs 06/19/22 prednisone 20 mg tablet 60 mg PO DAILY #9 tabs 06/19/22 loratadine 10 mg capsule 10 mg PO DAILY 30 days #30 caps 06/20/22 doxycycline monohydrate 100 mg 100 mg PO BID #20 caps 06/23/22 capsule Allergies Allergy/AdvReac Type Severity Reaction Status Date / Time Penicillins [PENICILLINS] Allergy Severe HIVES Verified 06/19/22 08:44 amoxicillin [AMOXICILLIN] Allergy Mild HIVES Verified 06/19/22 08:44 eggs Allergy Unknown vomiting, Verified 06/19/22 08:44 rash sesame seed Allergy Shortness Verified 06/19/22 08:44 of Breath peanuts Allergy Unknown Unknown Uncoded 06/19/22 08:44 tree nuts Allergy Unknown nausea and Uncoded 06/19/22 08:44 vomiting Review of Systems Review of Systems: Yes all other systems are reviewed and are negative Constitutional: Constitutional: Reports no additional constitutional complaints, Denies body ache(s), Denies chills, Denies fever(s), Denies headache(s) and Denies weakness Eyes: Eyes: Reports no additional eye complaints and Denies change in vision ENT: Reports system reviewed and no additional complaints, except as documented, Denies dizziness, Reports otalgia, Denies headache(s), Reports nasal congestion, Reports nasal discharge, Denies neck pain, Reports sinus pain and Reports sinus pressure Cardiovascular: Cardiovascular: Reports no additional cardiovascular complaints, Denies chest pain, Denies leg edema and Denies dyspnea Respiratory: Respiratory: Reports no additional respiratory complaints, Reports cough and Denies dyspnea Gastrointestinal: Gastrointestinal: Reports no additional gastrointestinal complaints, Denies abdominal pain, Denies diarrhea, Denies nausea and Denies vomiting Genitourinary: Genitourinary: Reports no additional female genitourinary complaints and Denies urinary incontinence Musculoskeletal: Musculoskeletal: Reports no additional musculoskeletal complaints, Denies back pain, Denies arthralgias, Denies joint swelling, Denies neck pain, Denies numbness and Denies tingling Integumentary/Breasts: Skin/Breast: Reports system reviewed and no additional complaints, except as docu and Denies rash Neurologic: Reports system reviewed and no additional complaints, except as documented, Denies dizziness, Denies headache(s), Denies numbness, Denies tingling and Denies weakness PMFSH Past Medical History Attestation statement: The following information was validated with the patient. Source: old records reviewed and nursing notes reviewed Medical History Back pain Breast cyst COVID-19 vaccine series completed Ganglion cyst of finger Hypertrophic scar of skin Obesity (BMI 30-39.9) Ovarian cyst Overweight (BMI 25.0-29.9) Umbilical hernia Surgical History History of appendectomy Hx of cosmetic surgery Hx of umbilical hernia repair (07/13/20) Family History Family History Maternal Grandmother Breast cancer Social History Social History Housing: Apartment Are you a primary field care coordinator to a significant other at home: No Do you presently have visiting nurse or other home services: No Alcohol intake: never Patient Tobacco Use Status: Never used Tobacco Smoked in Last 30 Days: No e-Cigarette/Vaping Use: Never Used Second Hand Smoke Exposure: No Use of substances other than those prescribed or required for medical reasons: No Advance Directives: No Advance Directives Information Provided: No service: No Current occupational status: unemployed Current occupation: rt handed Sexual orientation: Straight/Heterosexual Gender identity: Female Cognitive needs: No Hearing needs: No Vision needs: Yes Physical Exam ED Vital Signs: Vital Signs - 24 hr 06/23/22 10:49 06/23/22 10:54 06/23/22 10:56 Temperature 98.6 F Pulse Rate 841 H 85 84 Respiratory Rate 18 Blood Pressure 100/58 L Pulse Oximetry 98 97 Oxygen Delivery Method Room Air Room Air 06/23/22 12:10 Temperature Pulse Rate 86 Respiratory Rate 16 Blood Pressure 115/57 L Pulse Oximetry 98 Oxygen Delivery Method Room Air BMI result Body Mass Index 26.6 Const General: cooperative and no acute distress Orientation/consciousness: oriented to person and oriented to place Limitations: no limitations HENMT Head: Yes normal to inspection, Yes normocephalic and Yes atraumatic Ears: external ears normal and TM abnormal (Bilateral effusion) General nose exam: Normal external nose present Face and sinus: Yes normal facial exam, Yes sinus tenderness and Yes other (Bilateral nasal turbinate erythema) Mouth: Normal oral and palatal mucosa present Throat: Yes posterior oropharynx normal, Yes tonsils normal and Yes uvula midline Eyes General: appearance normal, both eyes and all related structures Pupils: Equal, round and reactive pupils present Neck Neck: Yes normal visual inspection, Yes full ROM, Yes no lymphadenopathy, Yes no meningeal signs, Yes trachea midline and Yes supple Chest Chest palpation & inspection: normal inspection of the chest and normal palpation of entire chest wall Resp Effort & Inspection: normal respiratory effort and able to speak in complete sentences Auscultation: clear to auscultation bilaterally Cardio Rate: regular rate Rhythm: regular rhythm Heart sounds: S1 normal heart sound present, S2 normal heart sound present and no murmurs GI Inspection: Yes normal to inspection Palpation (GI): Soft to palpation, Tenderness to palpation present (GI) in the epigastrum (Moderate) and no guarding Auscultation: normal bowel sounds General: Yes no CVA tenderness Back/Spine/Pelvis Back: no CVA tenderness Skin General skin exam: no rashes or lesions noted Neuro General: oriented to person, oriented to place and no meningeal signs Cranial nerves: Yes CN's II-XII intact bilaterally and Yes Equal, round and reactive pupils present Cognition (Neuro): normal cognition Motor exam (neuro): 5/5 motor strength present throughout Extrem General: Yes normal to inspection Psych Appearance: grossly normal Speech and movement: Normal speech and movement present Affect: normal affect Attitude: cooperative Thought process: Normal thought process present Thought content: Normal thought content present Course Course Course Narrative: COVID screen is negative. Likely allergic rhinitis with subsequent sinusitis. Patient will be treated with course of antibiotics. Reviewed worrisome signs and symptoms of when to return to the emergency room. Comfortable plan for discharge home. Medical Decision Making Medical Decision Making MDM Narrative: 41-year-old female who with 1 week of nasal congestion, rhinorrhea with green drainage, cough, sinus pressure, sinus congestion, earache despite using Flonase and loratadine daily. On exam patient with bilateral nasal turbinate erythema, sinus tenderness to palpation. Bilateral TM effusion. Likely allergic retinitis, consider superimposed sinusitis. Will check COVID screen Differential Diagnosis Differential Diagnoses: The differential diagnosis associated with the presentation includes Allergic rhinitis, viral syndrome, sinusitis Lab Data Labs: Lab Results 06/23/22 Range/Units 11:02 COVID-19 ([facility]) Negative (Negative) COVID-19 Clin Com See Note Discharge Plan Discharge Clinical Impression: Sinusitis Patient Disposition: Home, Self-Care Instructions: Sinusitis (ED) Additional Instructions: Covid test is negative Continue claritin/flonase Prescriptions: New doxycycline monohydrate 100 mg capsule 100 mg PO BID Qty: 20 0RF No Action loratadine 10 mg tablet 10 mg PO DAILY Qty: 90 0RF loratadine 10 mg capsule 10 mg PO DAILY 30 Days Qty: 30 1RF prednisone 20 mg tablet 60 mg PO DAILY Qty: 9 0RF fluticasone propionate [Flonase Allergy Relief] 50 mcg/actuation spray,susp ension 1 spray intranasal DAILY Qty: 9.9 1RF Rx Instructions: administer into each nostril omeprazole 20 mg capsule,delayed release(DR/EC) 20 mg PO DAILY epinephrine 0.3 mg/0.3 mL auto-injector 0.3 mg IM Q4H PRN (Reason: anaphylaxis) Qty: 2 0RF multivitamin Tablet 1 tab PO DAILY Mirena 20 mcg/24 hours (6 yrs) 52 mg intrauterine device intrauterine Citrucel 500 mg tablet 500 mg PO TID Qty: 90 5RF sucralfate 1 gram tablet 1 g PO BID 28 Days Qty: 56 0RF Referrals: Stanford Waters MD [Primary Care Provider] - 1 week Interventions: ED Discharge Assessment Last Done: 06/23/22 12:34 Discharge Date/Time: 06/23/22 12:34
[2022-06-23 10:54] VITALS: PULSE 85
[2022-06-23 10:56] VITALS: PULSE 84; O2SAT 97
--- NOTE | 2022-06-23 11:05 | PC.NURSE ---
Pt on stretcher, airway open and patent, no obvious signs of distress, equal chest rise and fall, no difficulty/labored breathing. Pt a&ox4. Skin color normal for ethnicity, warm, and dry. Lung sounds clr and equal bilaterally left and right. Heart sounds normal. Bowel sounds present and active all casillas. Abdomen soft, non-tender upon palpation. No edema noted. Pt complaining of nasal congestion for the past 6-7 days. Pt complaining of pain radiating to left ear starting today.
[2022-06-23 11:31] LABS: COVID-19 Test Negative (Negative); IDNOW Serial# 16C4AD1C
[2022-06-23 12:10] VITALS: BP 115/57; PULSE 86; RESP 16; O2SAT 98
== END 2022-06-23 12:34 | disposition home or self-care (01) ==
PROVIDERS: Nurse Practitioner Family; Emergency Provider Emergency Medicine; PCP Internal Medicine
DX: J32.9 Chronic sinusitis, unspecified (principal); Z20.822 Contact with and (suspected) exposure to COVID-19; Z79.899 Other long term (current) drug therapy
CPT/HCPCS: 87635; 99283; 99284

== ENCOUNTER 2022-06-24 08:51 | Emergency (ER) | payer OTHER, SELFPAY ==
[2022-06-24 08:55] VITALS: BP 123/50; PULSE 81; RESP 14; TEMP 36.1; O2SAT 99; BMI 26.6
--- NOTE | 2022-06-24 09:21 | ED.ALLEREA ---
HPI - Allergic Reaction General Chief complaint: Allergic Reaction Stated complaint: medication allergy Time Seen by Provider: 06/24/22 09:03 Source: patient Mode of arrival: ambulatory Limitations: no limitations History of Present Illness HPI narrative: Patient is a 41 yo female who presented to the ED for a potential allergic reaction to Doxycycline. The patient started a course of Doxycycline for a sinus infection yesterday, 06/23. She woke up today 06/24 with hive like rash on her entire torso and back. There is no rash on her face. She states the rash is worsening, and itchy. She has not put anything on the rash. She has had a rash like this before when she took Amoxicillin. She does not have any acute shortness of breath, chest pain or any indication of an anaphylactic reaction. MD complaint: allergic reaction and hives Onset (ago): day(s) (1) Exposure: medication Symptoms: rash and itching Severity: moderate Treatment prior to arrival: none Previous Allergic Reaction History: prior ED visit(s) Related Data Home Medications Medication Instructions Recorded Confirmed multivitamin 1 tab PO DAILY 12/02/19 06/06/22 levonorgestrel 21 mcg/24 hours (8 intrauterine 06/20/20 06/06/22 yrs) 52 mg intrauterine device (Mirena) omeprazole 20 mg capsule,delayed 20 mg PO DAILY 05/16/22 06/06/22 release Previous Rx's Medication Instructions Recorded epinephrine 0.3 mg/0.3 mL 0.3 mg (0.3 mL) IM Q4H PRN 06/20/21 injection, auto-injector anaphylaxis #2 ea methylcellulose (laxative) 500 mg 500 mg PO TID #90 tabs 06/06/22 tablet (Citrucel) sucralfate 1 gram tablet 1 g PO BID 4 weeks #56 tabs 06/06/22 fluticasone propionate 50 1 spray intranasal DAILY #9.9 mL 06/19/22 mcg/actuation nasal spray,suspension (Flonase Allergy Relief) loratadine 10 mg tablet 10 mg PO DAILY #90 tabs 06/19/22 prednisone 20 mg tablet 60 mg PO DAILY #9 tabs 06/19/22 loratadine 10 mg capsule 10 mg PO DAILY 30 days #30 caps 06/20/22 doxycycline monohydrate 100 mg 100 mg PO BID #20 caps 06/23/22 capsule azithromycin 250 mg tablet See Rx Instructions PO .COMPLEX #6 06/24/22 (Zithromax Z-Merlin) tabs diphenhydramine HCl 25 mg capsule 50 mg PO BEDTIME PRN allergic 06/24/22 (Benadryl) reaction #20 caps prednisone 20 mg tablet 40 mg PO DAILY #10 tabs 06/24/22 Allergies Allergy/AdvReac Type Severity Reaction Status Date / Time Penicillins [PENICILLINS] Allergy Severe HIVES Verified 06/19/22 08:44 amoxicillin [AMOXICILLIN] Allergy Mild HIVES Verified 06/19/22 08:44 eggs Allergy Unknown vomiting, Verified 06/19/22 08:44 rash doxycycline Allergy Hives Verified 06/24/22 08:59 sesame seed Allergy Shortness Verified 06/19/22 08:44 of Breath peanuts Allergy Unknown Unknown Uncoded 06/19/22 08:44 tree nuts Allergy Unknown nausea and Uncoded 06/19/22 08:44 vomiting Review of Systems Review of Systems: Yes all other systems are reviewed and are negative PMFSH Past Medical History Medical History Back pain Breast cyst COVID-19 vaccine series completed Ganglion cyst of finger Hypertrophic scar of skin Obesity (BMI 30-39.9) Ovarian cyst Overweight (BMI 25.0-29.9) Umbilical hernia Surgical History History of appendectomy Hx of cosmetic surgery Hx of umbilical hernia repair (07/13/20) Family History Family History Maternal Grandmother Breast cancer Social History Social History Housing: Apartment Are you a primary child care lead teacher to a significant other at home: No Do you presently have visiting nurse or other home services: No Alcohol intake: never Patient Tobacco Use Status: Never used Tobacco Smoked in Last 30 Days: No e-Cigarette/Vaping Use: Never Used Second Hand Smoke Exposure: No Use of substances other than those prescribed or required for medical reasons: No Advance Directives: No Advance Directives Information Provided: No Patient : No service: No Current occupational status: unemployed Current occupation: rt handed Sexual orientation: Straight/Heterosexual Gender identity: Female Cognitive needs: No Hearing needs: No Vision needs: Yes Physical Exam ED Vital Signs: Vital Signs - 24 hr 06/24/22 08:55 Temperature 97.0 F Pulse Rate 81 Respiratory Rate 14 Blood Pressure 123/50 L Pulse Oximetry 99 Oxygen Delivery Method Room Air BMI result Body Mass Index 26.6 Appearance: Alert. Oriented X3. No acute distress. HEENT: normal external inspection, no swelling of the face, lips or tongue. normal speech. CVS: Normal heart rate and rhythm. Pulses normal. Respiratory: No respiratory distress. Breath sounds normal. Skin: Hive like rash across entire torso and back. No rash on face. Neuro/psych: Oriented X 3. Medical Decision Making Medical Decision Making MDM Narrative: Patient presented with an diffuse hive like rash across her torso and abdomen. Since she started Doxycycline yesterday this is most consistent with an allergic reaction. We started the patient on oral Benadryl and Prednisone for her reaction. We told the patient to stop taking Doxycycline and started her on Azithromycin for her sinus infection. Patient is not having any respiratory distress or facial swelling, so this is unlikely to be any anaphylactic reaction. Patient should monitor for continuing or worsening symptoms. Differential Diagnosis Differential Diagnoses: The differential diagnosis associated with the presentation includes allergic reaction, eczema, contact dermatits, no evidence of TENS or moore johnsons syndrome External Record Review External record reviewed: Prior outpatient labs Prescription Management I considered prescription management with: Antibiotic and Other (prednisone and benadryl) Critical Care Time Critical Care Time Critical Care Time: No Discharge Plan Discharge Clinical Impression: Allergic reaction Patient Disposition: Home, Self-Care Instructions: General Allergic Reaction (ED) Additional Instructions: Stop taking the Doxycycline. Start taking Azithromycin for the sinus infection. Take two 250mg tablets today. Then take one 250mg for the next four days. Start taking two 20mg tablets of prednisone for ten days.Take two 250 mg tablets of Benadryl as needed at bedtime. Do not drink or operate a vehicle when taking Benadryl as drowsiness is a side effect. You can also use an over the counter topical steroid cream as needed. Prescriptions: New azithromycin [Zithromax Z-Merlin] 250 mg tablet See Rx Instructions .ROUTE .COMPLEX Qty: 6 0RF Rx Instructions: take 500 mg today (day 1), then 250 mg for 4 days (days 2-5) prednisone 20 mg tablet 40 mg PO DAILY Qty: 10 0RF diphenhydramine HCl [Benadryl] 25 mg capsule 50 mg PO BEDTIME PRN (Reason: allergic reaction) Qty: 20 0RF No Action loratadine 10 mg tablet 10 mg PO DAILY Qty: 90 0RF loratadine 10 mg capsule 10 mg PO DAILY 30 Days Qty: 30 1RF doxycycline monohydrate 100 mg capsule 100 mg PO BID Qty: 20 0RF prednisone 20 mg tablet 60 mg PO DAILY Qty: 9 0RF fluticasone propionate [Flonase Allergy Relief] 50 mcg/actuation spray,suspension 1 spray intranasal DAILY Qty: 9.9 1RF Rx Instructions: administer into each nostril omeprazole 20 mg capsule,delayed release(DR/EC) 20 mg PO DAILY epinephrine 0.3 mg/0.3 mL auto-injector 0.3 mg IM Q4H PRN (Reason: anaphylaxis) Qty: 2 0RF multivitamin Tablet 1 tab PO DAILY Mirena 20 mcg/24 hours (6 yrs) 52 mg intrauterine device intrauterine Citrucel 500 mg tablet 500 mg PO TID Qty: 90 5RF sucralfate 1 gram tablet 1 g PO BID 28 Days Qty: 56 0RF
== END 2022-06-24 09:48 | disposition home or self-care (01) ==
PROVIDERS: Emergency Provider Emergency Medicine; PCP Internal Medicine
DX: L50.0 Allergic urticaria (principal); Z79.899 Other long term (current) drug therapy
CPT/HCPCS: 99283

== ENCOUNTER → 2022-07-27 10:01 | Outpatient (BNVA) | payer OTHER, SELFPAY | PROVIDERS: PCP Internal Medicine; Visit Provider Advanced Practice Midwife | DX: N92.1 Excessive and frequent menstruation with irregular cycle (principal); K59.00 Constipation, unspecified; Z12.4 Encounter for screening for malignant neoplasm of cervix; Z97.5 Presence of (intrauterine) contraceptive device; Z87.42 Personal history of other diseases of the female genital tract | CPT/HCPCS: 99212 ==

== ENCOUNTER → 2022-08-02 12:23 | Outpatient (BNVA) | payer OTHER, SELFPAY | PROVIDERS: PCP Internal Medicine; Visit Provider Physician Assistant | DX: K29.00 Acute gastritis without bleeding (principal); R12 Heartburn | CPT/HCPCS: 99212 ==

== ENCOUNTER 2022-10-03 13:23 | Outpatient (AMB) | payer OTHER, SELFPAY ==
--- NOTE | 2022-10-03 13:51 | AM.OFFVISNUR ---
Intake Intake Visit Reasons: TB Test Allergies Penicillins [PENICILLINS] Allergy (Severe, Verified 08/02/22 12:27) HIVES amoxicillin [AMOXICILLIN] Allergy (Mild, Verified 08/02/22 12:27) HIVES eggs Allergy (Unknown, Verified 08/02/22 12:27) vomiting, rash doxycycline Allergy (Verified 08/02/22 12:27) Hives sesame seed Allergy (Verified 08/02/22 12:27) Shortness of Breath doxycycline Allergy (Mild, Uncoded 08/02/22 12:27) Hives peanuts Allergy (Unknown, Uncoded 08/02/22 12:27) Unknown tree nuts Allergy (Unknown, Uncoded 08/02/22 12:27) nausea and vomiting Office Meds tuberculin PPD Performing Provider: Stanford Waters MD Administered by: Tyesha Cisneros RN on 10/03/22 13:51 Dose Route Admin Location Lot Number Expiration Date NDC [employer] 0.1 mL intradermal left forearm [id number] 12/11/25 [id number] [employer] Coding Diagnoses Assessment & Plan Assessment & Plan Orders: Orders AMB PPD Planted Today Z11.1 - Encounter for screening for respiratory tuberculosis
== END 2022-10-03 13:51 | disposition home or self-care (01) ==
PROVIDERS: PCP Internal Medicine; Visit Provider Internal Medicine
DX: Z11.1 Encounter for screening for respiratory tuberculosis (principal)
CPT/HCPCS: 86580

== ENCOUNTER 2023-05-06 09:18 | Outpatient (AMB) | payer OTHER, SELFPAY ==
--- NOTE | 2023-05-06 09:22 | A.OFFVIS_ITS ---
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 Intake Note: would like std testing Poultry Grader Required: No Information Interpreted: non-clinical & clinical Smocking Machine Operator: Smocking Machine Operator Present (Neryyn) Allergies Penicillins [PENICILLINS] Allergy (Severe, Verified 05/06/23 09:24) HIVES amoxicillin [AMOXICILLIN] Allergy (Mild, Verified 05/06/23 09:24) HIVES eggs Allergy (Unknown, Verified 05/06/23 09:24) vomiting, rash doxycycline Allergy (Verified 05/06/23 09:24) Hives sesame seed Allergy (Verified 05/06/23 09:24) Shortness of Breath doxycycline Allergy (Mild, Uncoded 05/06/23 09:24) Hives peanuts Allergy (Unknown, Uncoded 05/06/23 09:24) Unknown tree nuts Allergy (Unknown, Uncoded 05/06/23 09:24) nausea and vomiting Medication List - Last Reconciled 05/06/23 by Jennifer Sharma CNM epinephrine 0.3 mg (0.3 mL) IM Q4H PRN levonorgestrel (Mirena) intrauterine loratadine 10 mg PO DAILY 30 days loratadine 10 mg PO DAILY multivitamin 1 tab PO DAILY Is last menstrual period known: Yes Last menstrual period: 04/20/23 Post menopausal: No HPI 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 She has started to experience some hot flashes. She is going through a divorce so there is lots of stress right now. She has the Mirena IU S her last few periods were longer than usual she had 1 that lasted 9 days and 5 days is her norm the periods just returned about a year ago she has not actually sure when. She thinks this IUD was placed after a about 6 months after the of her last child she had been having lots of heavy bleeding and passage of clots 6 months out and went to the emergency room and was told she was anemic she does not remember being told anything else but initially Nexplanon was planned but she changed her mind and decided to go for Mirena instead because that is what she had had before and she knew about it. In the end she would like to get her tubes tied she has not sexually active at the moment but would use condoms if she became sexually active. [facility] Medical History Hypertrophic scar of skin Overweight (BMI 25.0-29.9) COVID-19 vaccine series completed Ganglion cyst of finger Obesity (BMI 30-39.9) Back pain Ovarian cyst Umbilical hernia Breast cyst Surgical History Hx of umbilical hernia repair (07/13/20) Hx of cosmetic surgery History of appendectomy Family History Maternal Grandmother Breast cancer Social History Housing: Apartment Are you a primary pediatric acute care unit nurse to a significant other at home: No Do you presently have visiting nurse or other home services: No Alcohol intake: never Patient Tobacco Use Status: Never used Tobacco e-Cigarette/Vaping Use: Never Used Second Hand Smoke Exposure: No service: No Current occupational status: unemployed Current occupation: rt handed Sexual orientation: Straight/Heterosexual Gender identity: Female Cognitive needs: No Hearing needs: No Vision needs: Yes Female Reproductive History Menstrual Age of Menarche: 13 Duration of menses: 3-5 days Date of last menstrual period: 04/20/23 control method: progestin IUCD Total pregnancies: 5 Full term: 4 Number of Living Children: 4 Ab induced: 1 Date of last pap smear: 05/02/22 (negative) History of abnormal pap smear: Yes (2008 2005 2004 ASCUS, 2005 LGSIL) Date of Mammogram: 04/28/22 Physical Exam Vital Signs: BMI result Body Mass Index 27.1 Const General: healthy appearing, comfortable, no acute distress, well developed and alert Nutritional Appearance: average body habitus Orientation/consciousness: patient oriented x3 Limitations: no limitations HEENT Head: Yes normocephalic Neck Neck: Yes normal visual inspection Chest Chest palpation & inspection: normal inspection of the chest Breast/axilla inspection: normal inspection of the breasts and normal inspection of the axillae Breast/axilla palpation: normal palpation of the breasts and normal palpation of the axillae Resp Effort & Inspection: normal respiratory effort GI Inspection: Yes normal to inspection, No Abdominal wall edema and No distended Palpation (GI): Soft to palpation and nontender Other: Multiparous cervix with Mirena string easily visible about 1.5 cm long. There is beige mucus. Cervix midposition mobile nontender uterus slightly retroverted but midposition as well adnexa nontender very good tone with Kegel. General: Yes bladder normal to palpation External Female Exam: normal external appearance and normal appearance of the urethra Speculum Exam - Vagina: normal appearance of the vagina, normal palpation and normal vaginal discharge Speculum Exam - Cervix: normal appearance of the cervix, normal palpation and nontender Bimanual exam- vagina & uterus: normal bimanual exam, normal palpation, uterine size normal, bladder normal to palpation, consistency normal, normal palpation, uterine mobility normal, uterine shape normal, No Cervical tenderness present, non-tender and no cervical motion tenderness Bimanual Exam- Adnexa, other: normal adnexae, no masses, normal and No adnexal tenderness Neuro General: patient oriented x3 Assessment & Plan Assessment & Plan (1) Potential exposure to STD: Code(s): Z20.2 - Contact with and (suspected) exposure to infections with a predominantly sexual mode of transmission (2) Cervical cancer screening: Comment: 04/30/2022 Pap is negative with negative HPV Code(s): Z12.4 - Encounter for screening for malignant neoplasm of cervix (3) Cervical cancer screening: Comment: 08/30/2021 Pap is negative with negative HPV. ( paps prior to 2008 w ascus and cin1), pap done 04/30/22.... Code(s): Z12.4 - Encounter for screening for malignant neoplasm of cervix (4) Presence of 52 mg levonorgestrel-releasing intrauterine device (IUD): Code(s): Z97.5 - Presence of (intrauterine) contraceptive device (5) Breakthrough bleeding associated with intrauterine device (IUD): Code(s): N92.1 - Excessive and frequent menstruation with irregular cycle; Z97.5 - Presence of (intrauterine) contraceptive device (6) Dyspareunia in female: Code(s): N94.10 - Unspecified dyspareunia (7) Gastritis: Comment: Dietary modifications, beneficial, no longer using omeprazole. Code(s): K29.70 - Gastritis, unspecified, without bleeding Qualifiers: Gastritis type: unspecified gastritis Chronicity: acute Gastritis bleeding: without bleeding Qualified Code(s): K29.00 - Acute gastritis without bleeding (8) Breast cancer screening: Code(s): Z12.39 - Encounter for other screening for malignant neoplasm of breast (9) Perimenopause: Code(s): N95.1 - Menopausal and female climacteric states Plan -----Discussed in this visit the following: healthy balanced diet, regular and consistent exercise, getting recommended health screens, doing the best she can for her particular health concerns, kegel exercises, pap smear screening and followup recommendations, mammography screening and SBE, normal changes in cycles in her life stage--- . She will be rescheduling her mammogram. Discussed all of the issues in HPI. She is doing her best to manage her health with his few medications as possible she would actually like to have the Mirena IU S removed at some point she is actually interested in tying her tubes and she was considering that for the future when it works out in her life to have that done and then she could have the Mirena removed after that for now there was no discomfort elicited during the exam whatsoever we will start conservatively with an ultrasound to verify that it is in the right spot. She had normal periods she says before childbearing and before placement of the Mirena. Testing done for gonorrhea chlamydia trichomoniasis Gardnerella and Ana orders placed for HIV testing hep B hep C and syphilis. Reviewed that we do not screen for herpes with serologic testing big because of the high positivity rate that would not help someone figure out if they had been exposed recently or not. We will have a follow-up visit after the ultrasound and she could schedule a visit with Dr. Andres to discuss getting her tubes tied at her discretion. Reviewed the range of wiliam menopausal symptoms and non medicinal solutions. She uses coconut oil and it works well for her. Orders: Orders US pelvic and transvaginal Today N92.1 - Excessive and frequent menstruation with irregular cycle, N94.10 - Unspecified dyspareunia, Z97.5 - Presence of (intrauterine) contraceptive device Hepatitis C Antibody Today Z20.2 - Contact with and (suspected) exposure to infections with a predominantly sexual mode of transmission Syphilis Screen Today Z20.2 - Contact with and (suspected) exposure to infections with a predominantly sexual mode of transmission HIV Ab/Ag Today Z20.2 - Contact with and (suspected) exposure to infections with a predominantly sexual mode of transmission Bacterial Vaginosis Panel Today Z20.2 - Contact with and (suspected) exposure to infections with a predominantly sexual mode of transmission CT NG by PCR Today Z20.2 - Contact with and (suspected) exposure to infections with a predominantly sexual mode of transmission Hepatitis B Surface Antigen Today Z20.2 - Contact with and (suspected) exposure to infections with a predominantly sexual mode of transmission Coding Level of Care Code Est Pt Prev Care 40-64y(34019) Diagnoses Potential exposure to STD Z20.2 Cervical cancer screening Z12.4 Presence of 52 mg levonorgestrel-releasing intrauterine device (IUD) Z97.5 Breakthrough bleeding associated with intrauterine device (IUD) N92.1; Z97.5 Dyspareunia in female N94.10 Acute gastritis without hemorrhage, unspecified gastritis type K29.00 Gastritis type: unspecified gastritis Chronicity: acute Gastritis bleeding: without bleeding Breast cancer screening Z12.39 Perimenopause N95.1
[2023-05-06 09:23] VITALS: BMI 27.1
== END 2023-05-06 10:16 | disposition home or self-care (01) ==
LOC: HO.HWSM 09:18
PROVIDERS: PCP Internal Medicine; Visit Provider Advanced Practice Midwife
DX: Z01.419 Encounter for gynecological examination (general) (routine) without abnormal findings (principal); N92.1 Excessive and frequent menstruation with irregular cycle; N94.10 Unspecified dyspareunia; N95.1 Menopausal and female climacteric states; Z20.2 Contact with and (suspected) exposure to infections with a predominantly sexual mode of transmission; Z97.5 Presence of (intrauterine) contraceptive device
CPT/HCPCS: 99396

== ENCOUNTER 2023-05-06 09:18 | Outpatient (REF) | payer OTHER, SELFPAY ==
[2023-05-07 07:18] LABS: CT PCR NOT DETECTED (Not Detect.); NG PCR NOT DETECTED (Not Detect.)
[2023-05-07 11:58] LABS: BV Int Neg Control Negative (Negative); BV Int Pos Control Positive (Positive)
== END 2023-05-06 09:19 | disposition home or self-care (01) ==
LOC: HO.LNP 09:18
PROVIDERS: PCP Internal Medicine; Visit Provider Advanced Practice Midwife
DX: Z20.2 Contact with and (suspected) exposure to infections with a predominantly sexual mode of transmission (principal); N95.1 Menopausal and female climacteric states; N92.1 Excessive and frequent menstruation with irregular cycle; Z97.5 Presence of (intrauterine) contraceptive device
CPT/HCPCS: 0353U; 87480; 87510; 87660; 99396

== ENCOUNTER 2023-05-15 15:49 | Outpatient (REF) | payer OTHER, SELFPAY ==
--- NOTE | ~2023-05-15 | US_ITS ---
EXAMINATION: US PELVIS CLINICAL INFORMATION: Excessive and frequent menses, dyspareunia, check placement of IUD, last menstrual period April 20, 2023. COMPARISON: 05/18/2022. TECHNIQUE: Ultrasound of the pelvis is performed using both transabdominal and transvaginal transducers along with Doppler. Transvaginal imaging is performed due to inadequate visualization transabdominally. FINDINGS: The uterus is anteverted on transabdominal ultrasound images and retroverted on transvaginal ultrasound images. Uterus best visualized on transabdominal ultrasound images and visualization limited on transvaginal ultrasound images. Limited visualization due to bowel gas. Uterus measures 8.3 x 3.3 x 5.0 cm. No discrete fibroids appreciated. Endometrial thickness is 5 mm. IUD placed within the endometrial cavity. Nabothian cysts in the cervix. Echogenic foci within the cervix. No significant free fluid. Left ovary seen only on transabdominal ultrasound images and is grossly unremarkable measuring 3.0 x 1.6 x 1.9 cm, volume 4.8 mL. Right ovary measures 5.2 x 2.2 x 5.1 cm, volume 30.5 mL. 4.8 x 1.6 x 4.3 cm right ovarian cyst with septations. Small amount of free fluid in the right adnexa. Previous ultrasound demonstrated a 2.7 x 1.9 x 2.5 cm right ovarian cyst. US/US pelvic and transvaginal IMPRESSION: 1. IUD placed within the endometrial cavity. 2. Endometrial thickness is 5 mm. 3. A 4.8 cm right ovarian cyst with septations. Previous exam demonstrated a 2.7 cm right ovarian cyst. Small amount of free fluid in the right adnexa. Recommend follow-up ultrasound in 6-8 weeks.
[2023-05-16 07:13] LABS: HBsAGNum1 0.32 S/CO (0.00-0.99); HIV AB/AG Nonreactive (Nonreactive); HIV Num 1 0.04 S/CO (0.00-0.99); Hepatitis B Surface Antigen Negative (Negative); ~HepC Num1 0.31 S/CO (0.00-0.79); ~Hepatitis C Antibody Nonreactive (Nonreactive)
[2023-05-16 07:17] LABS: Syphilis Screen Nonreactive (Nonreactive)
== END 2023-05-15 15:50 | disposition home or self-care (01) ==
LOC: HO.US 15:49
PROVIDERS: PCP Internal Medicine; Visit Provider Advanced Practice Midwife
DX: N92.1 Excessive and frequent menstruation with irregular cycle (principal); N94.10 Unspecified dyspareunia; Z97.5 Presence of (intrauterine) contraceptive device; Z20.2 Contact with and (suspected) exposure to infections with a predominantly sexual mode of transmission
CPT/HCPCS: 36415; 76830; 76856; 86780; 86803; 87340; 87389

== ENCOUNTER 2023-05-31 13:22 | Outpatient (AMB) | payer OTHER, SELFPAY ==
[2023-05-31 13:27] VITALS: BP 112/66; BMI 27.1
--- NOTE | 2023-05-31 13:27 | A.OFFVIS_ITS ---
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 Required: No Allergies Penicillins [PENICILLINS] Allergy (Severe, Verified 05/31/23 13:28) HIVES amoxicillin [AMOXICILLIN] Allergy (Mild, Verified 05/31/23 13:28) HIVES eggs Allergy (Unknown, Verified 05/31/23 13:28) vomiting, rash doxycycline Allergy (Verified 05/31/23 13:28) Hives sesame seed Allergy (Verified 05/31/23 13:28) Shortness of Breath doxycycline Allergy (Mild, Uncoded 05/31/23 13:28) Hives peanuts Allergy (Unknown, Uncoded 05/31/23 13:28) Unknown tree nuts Allergy (Unknown, Uncoded 05/31/23 13:28) nausea and vomiting Medication List - Last Reconciled 05/31/23 by Jennifer Sharma CNM epinephrine 0.3 mg (0.3 mL) IM Q4H PRN levonorgestrel (Mirena) intrauterine loratadine 10 mg PO DAILY 30 days loratadine 10 mg PO DAILY multivitamin 1 tab PO DAILY Post menopausal: No HPI HPI Ultrasound follow up: Details: Patient is here to review her ultrasound she had done it was done with to check on her IUD and check because her periods had just returned very IUDs been in for 3 years. She is going through a divorce she is contemplating tubal ligation but she does not want the IUD to be removed until she would have her tubes tied as she is absolutely clear she does not want to future . Her last real period was the beginning of April but she did not have 1 though she had some unusual kind of spotting that she thought had little tissue with it she has not recently been sexually active soon after she had the ultrasound which showed this large ovarian cyst which does need to be followed up on with a repeat ultrasound in 4-6 weeks from the previous ultrasound, she had a pain on that side where the cyst was and then it got better. [facility] Medical History Hypertrophic scar of skin Overweight (BMI 25.0-29.9) COVID-19 vaccine series completed Ganglion cyst of finger Obesity (BMI 30-39.9) Back pain Ovarian cyst Umbilical hernia Breast cyst Surgical History Hx of umbilical hernia repair (07/13/20) Hx of cosmetic surgery History of appendectomy Family History Maternal Grandmother Breast cancer Social History Housing: Apartment Are you a primary customer care agent to a significant other at home: No Do you presently have visiting nurse or other home services: No Alcohol intake: never Patient Tobacco Use Status: Never used Tobacco e-Cigarette/Vaping Use: Never Used Second Hand Smoke Exposure: No service: No Current occupational status: unemployed Current occupation: rt handed Sexual orientation: Straight/Heterosexual Gender identity: Female Cognitive needs: No Hearing needs: No Vision needs: Yes Female Reproductive History Menstrual Age of Menarche: 13 control method: progestin IUCD Physical Exam Vital Signs: Last Vital Signs BP 112/66 05/31/23 13:27 BMI result Body Mass Index 27.1 Results Reviewed Results Reviewed: Patient: Vito Sommers MR#: [id number] : 1980 Acct:[id number] Age/Sex: 42 / F ADM Date: 05/15/23 Loc: HO.US Attending Dr: Jennifer Sharma CNM Ordering Physician: Jennifer Sharma CNM Date of Service: 05/15/23 Procedure(s): US pelvic and transvaginal Accession Number(s): [id number] cc: Stanford Waters MD; Jennifer Sharma CNM~ EXAMINATION: US PELVIS CLINICAL INFORMATION: Excessive and frequent menses, dyspareunia, check placement of IUD, last menstrual period April 20, 2023. COMPARISON: 05/18/2022. TECHNIQUE: Ultrasound of the pelvis is performed using both transabdominal and transvaginal transducers along with Doppler. Transvaginal imaging is performed due to inadequate visualization transabdominally. FINDINGS: The uterus is anteverted on transabdominal ultrasound images and retroverted on transvaginal ultrasound images. Uterus best visualized on transabdominal ultrasound images and visualization limited on transvaginal ultrasound images. Limited visualization due to bowel gas. Uterus measures 8.3 x 3.3 x 5.0 cm. No discrete fibroids appreciated. Endometrial thickness is 5 mm. IUD placed within the endometrial cavity. Nabothian cysts in the cervix. Echogenic foci within the cervix. No significant free fluid. Left ovary seen only on transabdominal ultrasound images and is grossly unremarkable measuring 3.0 x 1.6 x 1.9 cm, volume 4.8 mL. Right ovary measures 5.2 x 2.2 x 5.1 cm, volume 30.5 mL. 4.8 x 1.6 x 4.3 cm right ovarian cyst with septations. Small amount of free fluid in the right adnexa. Previous ultrasound demonstrated a 2.7 x 1.9 x 2.5 cm right ovarian cyst. US/US pelvic and transvaginal IMPRESSION: 1. IUD placed within the endometrial cavity. 2. Endometrial thickness is 5 mm. 3. A 4.8 cm right ovarian cyst with septations. Previous exam demonstrated a 2.7 cm right ovarian cyst. Small amount of free fluid in the right adnexa. Recommend follow-up ultrasound in 6-8 weeks. 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 Assessment & Plan Assessment & Plan (1) Ovarian cyst: Code(s): N83.209 - Unspecified ovarian cyst, unspecified side Category: Medical (2) Cervical cancer screening: Comment: 08/30/2021 Pap is negative with negative HPV. ( paps prior to 2008 w ascus and cin1), pap done 04/30/22.... Code(s): Z12.4 - Encounter for screening for malignant neoplasm of cervix Category: Medical (3) Presence of 52 mg levonorgestrel-releasing intrauterine device (IUD): Code(s): Z97.5 - Presence of (intrauterine) contraceptive device Category: Social Hx Plan Patient is here to review her ultrasound she had done it was done with to check on her IUD and check because her periods had just returned very IUDs been in for 3 years. She is going through a divorce she is contemplating tubal ligation but she does not want the IUD to be removed until she would have her tubes tied as she is absolutely clear she does not want to future . Her last real period was the beginning of April but she did not have 1 though she had some unusual kind of spotting that she thought had little tissue with it she has not recently been sexually active soon after she had the ultrasound which showed this large ovarian cyst which does need to be followed up on with a repeat ultrasound in 4-6 weeks from the previous ultrasound, she had a pain on that side where the cyst was and then it got better. Discussed that it is possible that the cyst ruptured and that was what pain was recommendation has been made for follow-up of the ovarian cyst in 6-8 weeks from the previous ultrasound so that will be scheduled and she and I can I am tele visit after that. For now she does not want to do anything with the Mirena IUD until she would have her tubes tied so in the future when it is convenient for her she may scheduled appointment with Dr. Andres to discuss getting her tubes tied and then remove the IUD. Additionally I shared that if there is any thing that is still recommended that needs follow-up after the ultrasound then I may have her see Dr. Andres if that is necessary as well. I also reviewed all her other lab work from the visit and from the blood work that she had done for STIs and all and it was negative. Orders: Orders US pelvic and transvaginal 6 Weeks N83.209 - Unspecified ovarian cyst, unspecified side, Z12.4 - Encounter for screening for malignant neoplasm of cervix, Z97.5 - Presence of (intrauterine) contraceptive device
== END 2023-05-31 14:01 | disposition home or self-care (01) ==
LOC: HO.HWSM 13:22
PROVIDERS: PCP Internal Medicine; Visit Provider Advanced Practice Midwife
DX: N83.209 Unspecified ovarian cyst, unspecified side (principal); Z12.4 Encounter for screening for malignant neoplasm of cervix; Z97.5 Presence of (intrauterine) contraceptive device
CPT/HCPCS: 99213

== ENCOUNTER → 2023-05-31 13:22 | Outpatient (BNVA) | payer OTHER, SELFPAY | PROVIDERS: PCP Internal Medicine; Visit Provider Advanced Practice Midwife | DX: Z01.419 Encounter for gynecological examination (general) (routine) without abnormal findings (principal); N83.209 Unspecified ovarian cyst, unspecified side; Z97.5 Presence of (intrauterine) contraceptive device | CPT/HCPCS: 99212 ==

== ENCOUNTER 2023-06-08 10:28 | Outpatient (REF) | payer OTHER, SELFPAY | END 2023-06-08 10:29 | disposition home or self-care (01) | LOC: HO.MAMMO 10:28 | PROVIDERS: PCP Internal Medicine; Visit Provider Internal Medicine | DX: Z12.31 Encounter for screening mammogram for malignant neoplasm of breast (principal) | CPT/HCPCS: 77063; 77067 ==

== ENCOUNTER → 2023-06-08 10:30 | Outpatient (BNV) | payer OTHER, SELFPAY | PROVIDERS: PCP Internal Medicine; Visit Provider Radiology Diagnostic Radiology | DX: Z12.31 Encounter for screening mammogram for malignant neoplasm of breast (principal) | CPT/HCPCS: 77063; 77067 ==

== ENCOUNTER 2023-07-12 10:54 | Outpatient (REF) | payer OTHER, SELFPAY ==
--- NOTE | ~2023-07-12 | US_ITS ---
EXAMINATION: US PELVIS CLINICAL INFORMATION: Unspecified ovarian cysts, unspecified side LMP 2 weeks ago COMPARISON: Pelvic ultrasound 05/15/2023 TECHNIQUE: Ultrasound of the pelvis is performed using both transabdominal and transvaginal transducers along with Doppler. Transvaginal imaging is performed due to inadequate visualization transabdominally. FINDINGS: Uterus: The uterus is retroverted and measures 7.2 x 3.9 x 4.9 cm. No focal fibroid. The endometrial thickness is 0.3 cm. The IUD is in proper position. Adnexa: Both ovaries are visualized. There is normal color flow to the adnexa. There is no ovarian torsion. There is a small amount of free fluid within the cul-de-sac. Right ovary measures 2.5 x 1.2 x 1.3 cm. Volume 2.1 mL. The right ovary is normal in appearance. Left ovary measures 3.4 x 1.6 x 2.0 cm. The left ovary is normal in appearance. US/US pelvic and transvaginal IMPRESSION: Normal pelvic ultrasound.
== END 2023-07-12 10:55 | disposition home or self-care (01) ==
LOC: HO.US 10:54
PROVIDERS: PCP Internal Medicine; Visit Provider Advanced Practice Midwife
DX: N83.209 Unspecified ovarian cyst, unspecified side (principal); Z97.5 Presence of (intrauterine) contraceptive device
CPT/HCPCS: 76830; 76856

== ENCOUNTER 2023-08-14 13:33 | Outpatient (AMB) | payer OTHER, SELFPAY ==
--- NOTE | 2023-08-14 13:34 | A.OFFVIS_ITS ---
Intake Visit Reasons: Ultrasound Follow up/Okay per WILL Allergies Penicillins [PENICILLINS] Allergy (Severe, Verified 05/31/23 13:28) HIVES amoxicillin [AMOXICILLIN] Allergy (Mild, Verified 05/31/23 13:28) HIVES eggs Allergy (Unknown, Verified 05/31/23 13:28) vomiting, rash doxycycline Allergy (Verified 05/31/23 13:28) Hives sesame seed Allergy (Verified 05/31/23 13:28) Shortness of Breath doxycycline Allergy (Mild, Uncoded 05/31/23 13:28) Hives peanuts Allergy (Unknown, Uncoded 05/31/23 13:28) Unknown tree nuts Allergy (Unknown, Uncoded 05/31/23 13:28) nausea and vomiting Medication List - Last Reconciled 08/14/23 by Will Sharma CNM epinephrine 0.3 mg (0.3 mL) IM Q4H PRN levonorgestrel (Mirena) intrauterine loratadine 10 mg PO DAILY 30 days loratadine 10 mg PO DAILY multivitamin 1 tab PO DAILY Is last menstrual period known: Yes Last menstrual period: 08/07/23 HPI HPI Ultrasound Follow up/Okay per WILL: Details: This is a tele visit to review the patient's 2nd ultrasound that she had done she had had an ultrasound May that showed a large ovarian cyst in acquired follow-up ultrasound 6-8 weeks later so the ultrasound were reviewing today was done July 11 to see what changes had occurred. [facility], [facility] Medical History (Updated 08/14/23 @ 13:57 by Will Sharma CNM) Hypertrophic scar of skin Overweight (BMI 25.0-29.9) COVID-19 vaccine series completed Ganglion cyst of finger Obesity (BMI 30-39.9) Back pain Ovarian cyst Umbilical hernia Breast cyst Surgical History Hx of umbilical hernia repair (07/13/20) Hx of cosmetic surgery History of appendectomy Family History Maternal Grandmother Breast cancer Social History Housing: Apartment Are you a primary caregivers homecare to a significant other at home: No Do you presently have visiting nurse or other home services: No Alcohol intake: never Patient Tobacco Use Status: Never used Tobacco e-Cigarette/Vaping Use: Never Used Second Hand Smoke Exposure: No service: No Current occupational status: unemployed Current occupation: rt handed Sexual orientation: Straight/Heterosexual Gender identity: Female Cognitive needs: No Hearing needs: No Vision needs: Yes Female Reproductive History Menstrual Age of Menarche: 13 Date of last menstrual period: 08/07/23 control method: progestin IUCD Telehealth Telehealth Telehealth Platform: Telephone Location of provider rendering services: practice address Location of patient: address on file Patient Identification confirmed using: Name, : Yes Telehealth method: voice only Patient verbally consented to treatment: Yes Patient verbally consented to billing insurance company: Yes Patient informed of any privacy concerns related to visit: Yes Minutes spent on Phone/Video with Pt.: 7 Results Reviewed Results Reviewed: Patient: Vito Sommers MR#: [id number] : 1980 Acct:[id number] Age/Sex: 42 / F ADM Date: 07/12/23 Loc: HO.US Attending Dr: Will Sharma CNM Ordering Physician: Will Sharma CNM Date of Service: 07/12/23 Procedure(s): US pelvic and transvaginal Accession Number(s): [id number] cc: Stanford Waters MD; Will Sharma CNM~ EXAMINATION: US PELVIS CLINICAL INFORMATION: Unspecified ovarian cysts, unspecified side LMP 2 weeks ago COMPARISON: Pelvic ultrasound 05/15/2023 TECHNIQUE: Ultrasound of the pelvis is performed using both transabdominal and transvaginal transducers along with Doppler. Transvaginal imaging is performed due to inadequate visualization transabdominally. FINDINGS: Uterus: The uterus is retroverted and measures 7.2 x 3.9 x 4.9 cm. No focal fibroid. The endometrial thickness is 0.3 cm. The IUD is in proper position. Adnexa: Both ovaries are visualized. There is normal color flow to the adnexa. There is no ovarian torsion. There is a small amount of free fluid within the cul-de-sac. Right ovary measures 2.5 x 1.2 x 1.3 cm. Volume 2.1 mL. The right ovary is normal in appearance. Left ovary measures 3.4 x 1.6 x 2.0 cm. The left ovary is normal in appearance. US/US pelvic and transvaginal IMPRESSION: Normal pelvic ultrasound. Dictated By: Tiffany Mark MD Signed By: <Electronically signed by Tiffany Mark MD in OV> 07/30/23 1039 DD/ 1153 TD/TT: Buttermaker: Patient: Vito Sommers MR#: [id number] : 1980 Acct:[id number] Age/Sex: 42 / F ADM Date: 05/15/23 Loc: . Attending Dr: Will Sharma CNM Ordering Physician: Will Sharma CNM Date of Service: 05/15/23 Procedure(s): US pelvic and transvaginal Accession Number(s): [id number] cc: Stanford Waters MD; Will Sharma CNM~ EXAMINATION: US PELVIS CLINICAL INFORMATION: Excessive and frequent menses, dyspareunia, check placement of IUD, last menstrual period April 20, 2023. COMPARISON: 05/18/2022. TECHNIQUE: Ultrasound of the pelvis is performed using both transabdominal and transvaginal transducers along with Doppler. Transvaginal imaging is performed due to inadequate visualization transabdominally. FINDINGS: The uterus is anteverted on transabdominal ultrasound images and retroverted on transvaginal ultrasound images. Uterus best visualized on transabdominal ultrasound images and visualization limited on transvaginal ultrasound images. Limited visualization due to bowel gas. Uterus measures 8.3 x 3.3 x 5.0 cm. No discrete fibroids appreciated. Endometrial thickness is 5 mm. IUD placed within the endometrial cavity. Nabothian cysts in the cervix. Echogenic foci within the cervix. No significant free fluid. Left ovary seen only on transabdominal ultrasound images and is grossly unremarkable measuring 3.0 x 1.6 x 1.9 cm, volume 4.8 mL. Right ovary measures 5.2 x 2.2 x 5.1 cm, volume 30.5 mL. 4.8 x 1.6 x 4.3 cm right ovarian cyst with septations. Small amount of free fluid in the right adnexa. Previous ultrasound demonstrated a 2.7 x 1.9 x 2.5 cm right ovarian cyst. US/US pelvic and transvaginal IMPRESSION: 1. IUD placed within the endometrial cavity. 2. Endometrial thickness is 5 mm. 3. A 4.8 cm right ovarian cyst with septations. Previous exam demonstrated a 2.7 cm right ovarian cyst. Small amount of free fluid in the right adnexa. Recommend follow-up ultrasound in 6-8 weeks. Dictated By: Jodee Villalobos MD Signed By: <Electronically signed by Jodee Villalobos MD in OV> 05/21/23 1247 DD/ 1641 TD/TT: Buttermaker: Name: Vito Sommers Age/Sex: 41/F Attending: Will Sharma CNM : 1980 Submitted by: Will Sharma CNM Copies to: Stanford Waters MD MR #: [id number] Status: DEP REF Collected: 04/30/22 Location: [facility] Received: 05/02/22 Interpretation Satisfactory for evaluation. Negative for intraepithelial lesion or malignancy. Moderate inflammation. HPV mRNA E6/E7: NOT DETECTED This assay detects E6/E7 viral messenger RNA (mRNA) from 14 high-risk HPV types (16, 18, 31, 33, 35, 39, 45, 51, 52, 56, 58, 59, 66, 68) HPV testing performed by [facility], [place], [place]. See reference laboratory portion of the EMR for entire report. Clinical Information LMP: No menses Mirena Previous PAP test: 08/30/21, WNL Material Received ThinPrep-Cervical Copies To Stanford Waters MD [address] [address] Will Sharma CNM [address] [place] [id number] Electronically Signed By: Laurie Davidson 05/06/22 1544 The Pap Test is a screening procedure with the inherent possibility of both false negative and false positive results. Results should be interpreted in the context of historic and current clinical findings. Reliability of the Pap Test is enhanced by performing the test on a regular repetitive basis. Patient: Vito Sommers Age/Sex: 41/F MR#: [id number] Page 1 of 1 Assessment & Plan Assessment & Plan (1) Ovarian cyst: Comment: Cyst seen on 05/15/2023 ultrasound completely resolved as of 07/12/2023 ultrasound. Code(s): N83.209 - Unspecified ovarian cyst, unspecified side Category: Medical (2) Presence of 52 mg levonorgestrel-releasing intrauterine device (IUD): Code(s): Z97.5 - Presence of (intrauterine) contraceptive device Category: Medical (3) control counseling: Code(s): Z30. - Encounter for other general counseling and advice on contraception Category: Medical Plan I reviewed both ultrasounds and I also reviewed her Pap smear results with her from 2022 which was negative with negative HPV. She is happy with the ultrasound results. She has a future plan to get her tubes tied but she is going to wait until the kids her back at school so she can take care of herself and recover. She will call the office to schedule tubal ligation consult she has a time to do so she is going to be the IUD until then. Coding Level of Care Code Tele Est Pt Level 3 (94056) Diagnoses Ovarian cyst N83.209 Presence of 52 mg levonorgestrel-releasing intrauterine device (IUD) Z97.5 control counseling Z Comment 5 cr/7 speaking w pt/6 charting.=18.
== END 2023-08-14 13:55 | disposition home or self-care (01) ==
LOC: HO.HWSM 13:33
PROVIDERS: PCP Internal Medicine; Visit Provider Advanced Practice Midwife
DX: N83.209 Unspecified ovarian cyst, unspecified side (principal); Z97.5 Presence of (intrauterine) contraceptive device; Z30.09 Encounter for other general counseling and advice on contraception
CPT/HCPCS: 99213

== ENCOUNTER → 2023-08-14 13:33 | Outpatient (BNVA) | payer OTHER, SELFPAY | PROVIDERS: PCP Internal Medicine; Visit Provider Advanced Practice Midwife ==

== ENCOUNTER 2023-08-20 17:20 | Outpatient (AMB) | payer OTHER, SELFPAY ==
[2023-08-20 17:24] VITALS: BP 102/78; PULSE 76; O2SAT 97; BMI 27.3
--- NOTE | 2023-08-20 17:24 | A.OFFPC_ITS ---
Vital Signs 08/20/23 17:24 Height 5 ft 3 in Weight 154 lb 4 oz BMI 27.3 BP 102/78 Blood Pressure Location Lt brachial Position Sitting Pulse 76 Pulse Source Pulse Oximeter Pulse Oximetry (%) 97 Oxygen Delivery Method Room Air Intake Visit Reasons: Annual Exam [employer] Required: No Accompanied by: Self / Same As Patient Allergies Penicillins [PENICILLINS] Allergy (Severe, Verified 08/20/23 17:35) HIVES amoxicillin [AMOXICILLIN] Allergy (Mild, Verified 08/20/23 17:35) HIVES eggs Allergy (Unknown, Verified 08/20/23 17:35) vomiting, rash doxycycline Allergy (Verified 08/20/23 17:35) Hives sesame seed Allergy (Verified 08/20/23 17:35) Shortness of Breath doxycycline Allergy (Mild, Uncoded 08/20/23 17:35) Hives peanuts Allergy (Unknown, Uncoded 08/20/23 17:35) Unknown tree nuts Allergy (Unknown, Uncoded 08/20/23 17:35) nausea and vomiting Medication List - Last Reconciled 08/20/23 by Stanford Waters MD epinephrine 0.3 mg (0.3 mL) IM Q4H PRN levonorgestrel (Mirena) intrauterine loratadine 10 mg PO DAILY PRN multivitamin 1 tab PO DAILY Tobacco use date assessed: 08/20/23 Dental Screening Dental Screen Date: 08/20/23 Did you have a dental visit in the last 12 months?: Yes Did you have a dental problem in the last 6 months where you did not have access to dental care?: No Was dental information given to patient?: Patient has dentist HPI Annual Exam HPI Details Patient comes in today for her annual physical examination States that she feels okay She denies any headaches or dizziness Denies any chest pains, no SOB No nausea/vomiting, no abdominal pain States that her heartburns have been mostly manageable/controlled with diet restrictions; she takes Mylanta only PRN No change in bowel habits noted She denies any acute urinary symptoms Would like to have some labs done to check for her blood count, thyroid level and vitamin levels as she states that she has been losing a lot of hair lately She is up-to-date with her annual mammogram and pap smear/gynecology exam - had mammogram done in May 2023 and she is scheduled for her next annual gynecology exam in May 2024 [facility] Medical History Hypertrophic scar of skin Overweight (BMI 25.0-29.9) COVID-19 vaccine series completed Ganglion cyst of finger Obesity (BMI 30-39.9) Back pain Ovarian cyst Umbilical hernia Breast cyst Surgical History Hx of umbilical hernia repair (07/13/20) Hx of cosmetic surgery History of appendectomy Family History Maternal Grandmother Breast cancer Social History Housing: Apartment Are you a primary home care administrator to a significant other at home: No Do you presently have visiting nurse or other home services: No Alcohol intake: never Patient Tobacco Use Status: Never used Tobacco e-Cigarette/Vaping Use: Never Used Second Hand Smoke Exposure: No service: No Current occupational status: unemployed Current occupation: rt handed Sexual orientation: Straight/Heterosexual Gender identity: Female Cognitive needs: No Hearing needs: No Vision needs: Yes Female Reproductive History Menstrual Age of Menarche: 13 Questionnaire PHQ-9 Over the last 2 weeks, how often have you been bothered by any of the following problems? 1. Little interest or pleasure in doing things: not at all 2. Feeling down, depressed, or hopeless: not at all 3. Trouble falling or staying asleep, or sleeping too much: not at all 4. Feeling tired or having little energy: not at all 5. Poor appetite or overeating: not at all 6. Feeling bad about yourself - or that you are a failure or have let yourself or your family down: not at all 7. Trouble concentrating on things, such as reading the newspaper or watching television: not at all 8. Moving or speaking so slowly that other people could have noticed. Or the opposite - being so fidgety or restless that you have been moving around a lot more than usual: not at all 9. Thoughts that you would be better off or of hurting yourself in some way: not at all Total score: 0 Depression Screening Interpretation: Negative Depression Screening Done: Yes 83618 - PHQ-9 Billing: Yes Source: Developed by Drs. Peter Bloom, Kaylah Quintero, Alexandru Bethea and colleagues, with an educational jitendra from [employer]. Thrive Questionnaire Date Thrive assessed: 08/20/23 I am a: Patient What is your living situation today?: I have a steady place to live Within the past 12 months, did the food you bought not last and you didn't have the money to get more?: Never true Within the past 12 months, did you worry whether your food would run out before you got money to buy more?: Never true Do you have trouble paying for medicines?: No Do you have trouble getting transportation to medical appointments?: No Do you have trouble paying your heating and electricity bill?: No Do you have trouble taking care of your child, family member or friend?: No Do you have trouble with day-to-day activities such as bathing, preparing meals, shopping, managing finances, etc.?: No Are you currently unemployed and looking for a job?: No Are you interested in more education?: No Please select the resources that you would like help with: None Currently or been in a relationship where the following occur: No concerns reported THRIVE Score: 0 AUDIT C Alcohol Use Questionnaire (AUDIT-C) 1. How often do you have a drink containing alcohol?: Never 2. How many drinks containing alcohol do you have on a typical day when you are drinking?: 1 or 2 (0) 3. How often do you have six or more drinks on one occasion?: Never Total Score: 0 Score Reviewed/Action Taken: Yes PATRICE-7 AMB Questionnaire PATRICE-7 Date PATRICE - 7 assessed: 08/20/23 Feeling nervous, anxious, or on edge: 0 = Not at all Not being able to stop or control worryin = Not at all Worrying too much about different things: 0 = Not at all Trouble relaxin = Not at all Being so restless that it is hard to sit still: 0 = Not at all Becoming easily annoyed or irritable: 0 = Not at all Feeling afraid as if something awful might happen: 0 = Not at all Total PATRICE-7 score (0-4 normal; 5-9 mild; 10-14 moderate; 15-21 severe): 0 Source: Developed by Drs. Peter Bloom, Kaylah Quintero, Alexandru Bethea and colleagues, with an educational jitendra from [employer]. PATRICE-7 Assessment Billing PATRICE-7 Assessment Tool: PATRICE-7 Assessment 17750 Review of Systems Const Denies chills, Denies fatigue, Denies fever(s), Denies headache(s) and Denies malaise Eyes Denies blurry vision, Denies change in vision, Denies irritation and Denies itchy eyes ENT Denies dysphagia, Denies dizziness, Denies otalgia, Denies headache(s), Denies nasal congestion, Denies neck pain, Denies odynophagia, Denies sinus pain and Denies sore throat Card Denies chest pain, Denies rapid heart rate, Denies irregular heart rhythm, Denies palpitations and Denies dyspnea Resp Denies chest congestion, Denies cough, Denies dyspnea and Denies wheezing GI Denies abdominal pain, Denies bloating, Denies constipation, Denies dysphagia, Denies heartburn, Denies diarrhea, Denies nausea, Denies odynophagia and Denies vomiting Denies hematuria, Denies urinary frequency, Denies dysuria, Denies urinary incontinence and Denies urinary urgency Musc Denies back pain, Denies arthralgias, Denies joint swelling, Denies muscle weakness and Denies neck pain Skin/Breast Denies breast pain, Denies breast mass, Denies change in pigmentation, Reports alopecia, Denies lesions, Denies rash and Denies unusual bruising Neuro Denies dizziness, Denies headache(s) and Denies paresthesias Psych Denies anxiety and Denies depression Endo Denies fatigue and Denies palpitations Juan Luis/Lymph Denies easy bruising Aller/Immun Denies itchy eyes and Denies wheezing Physical exam (Primary Care) Vital Signs: Last Vital Signs Pulse 76 08/20/23 17:24 BP 102/78 08/20/23 17:24 Pulse Ox 97 08/20/23 17:24 Oxygen Delivery Method Room Air 08/20/23 17:24 BMI result Body Mass Index 27.3 Tobacco/Smoking Status: Tobacco use Status Tobacco use date assessed 08/20/23 08/20/23 17:29 Patient Tobacco Use Status Never used Tobacco 08/20/23 17:29 e-Cigarette/Vaping Use Never Used 08/20/23 17:29 PHQ-9: PHQ-9 Score PHQ-9: Total score 0 08/20/23 17:29 Depression Screening Interpretation: Negative Thrive Assessment: Date of Thrive Assessment Date Thrive assessed 08/20/23 08/20/23 17:29 Currently or been in a relationship where the following occur: No concerns reported Const General: no acute distress, alert and awake Orientation/consciousness: patient oriented x3 HENMT Head: Yes normocephalic and Yes atraumatic Ears: external ears normal, TM's normal bilaterally and EAC's normal General nose exam: No nasal discharge present Face and sinus: Yes normal facial exam and Yes sinuses nontender Teeth and gingiva: dentition normal Throat: Yes posterior oropharynx normal and Yes tonsils normal (no TP congestion) Eyes Eyelids: Yes eyelids normal Conjunctivae: conjunctivae normal Pupils: Equal, round and reactive pupils present EOM: EOMs intact bilaterally Neck Neck: Yes no lymphadenopathy and Yes supple Thyroid: Thyroid normal Resp Auscultation: clear to auscultation bilaterally, no rales and no wheezes Cardio Rate: regular rate Rhythm: regular rhythm Heart sounds: no murmurs GI Palpation (GI): Soft to palpation, nontender and No hepatosplenomegaly present Auscultation: normal bowel sounds General: Yes no CVA tenderness Back/Spine/Pelvis Back: no CVA tenderness Thoracic/Lumbar Spine: thoracic and lumbar spine normal to inspection Skin Lesions: no lesions Rashes: no rashes Neuro General: patient oriented x3, moves all extremities, no focal motor deficits and CN's II-XI intact bilaterally Cranial nerves: Yes Equal, round and reactive pupils present Cognition (Neuro): normal cognition Gait exam (Neuro): Normal gait present Extrem General: Yes no clubbing, cyanosis or edema Assessment and Plan Assessment & Plan (1) Annual physical exam: Code(s): Z00.00 - Encounter for general adult medical examination without abnormal findings Plan: Check labs She is up-to-date with her annual mammogram and pap smear/gynecology exam (2) Gastritis: Comment: Dietary modifications, beneficial, no longer using omeprazole. Code(s): K29.70 - Gastritis, unspecified, without bleeding Qualifiers: Gastritis type: unspecified gastritis Chronicity: acute Gastritis bleeding: without bleeding Qualified Code(s): K29.00 - Acute gastritis without bleeding Plan: Reinforced dietary restrictions - states that her GI symptoms have improved a lot with dietary restrictions alone Can continue taking Famotidine 20 mg PRN or Mylanta PRN - states that she tends to take Mylanta more than Famotidine but only on an as-needed basis She has been referred to GI for further evaluation and management in the past but it does not look like she was ever seen States that as her symptoms are now better-controlled, she wants to hold off on the GI referral at this time (3) Anxiety disorder: Code(s): F41.9 - Anxiety disorder, unspecified Qualifiers: Anxiety disorder type: unspecified anxiety disorder Qualified Code(s): F41.9 - Anxiety disorder, unspecified Plan: Follow up with psychiatry for counseling and therapy She has declined offer to start her on Rx in the past and still prefers to try natural remedies and avoid prescriptions if possible Is again reminded that she can call for Rx at any time if she changes her mind and her anxiety is getting much worse (4) Overweight (BMI 25.0-29.9): Code(s): E66.3 - Overweight Plan: Reinforced diet/exercise as tolerated/lose weight Plan Follow up in 3 months, per request, to discuss all of her results in details Orders: Orders Complete Blood Count Auto Diff Today D64.9 - Anemia, unspecified, Z00.00 - Encounter for general adult medical examination without abnormal findings Lipid Panel Today E78.00 - Pure hypercholesterolemia, unspecified, Z00.00 - Encounter for general adult medical examination without abnormal findings Comprehensive [place]. Panel Fast Today E78.00 - Pure hypercholesterolemia, unspecified, Z00.00 - Encounter for general adult medical examination without abnormal findings TSH reflex Free T4 Today E78.00 - Pure hypercholesterolemia, unspecified, Z00.00 - Encounter for general adult medical examination without abnormal findings UA CC w/rflx Micro + Cult Today R30.0 - Dysuria, Z00.00 - Encounter for general adult medical examination without abnormal findings Vitamin D 25-OH Total Today E55.9 - Vitamin D deficiency, unspecified, Z00.00 - Encounter for general adult medical examination without abnormal findings Coding Level of Care Code Est Pt Prev Care 40-64y(58026) Diagnoses Annual physical exam Z00.00 Acute gastritis without hemorrhage, unspecified gastritis type K29.00 Gastritis type: unspecified gastritis Chronicity: acute Gastritis bleeding: without bleeding Anxiety disorder, unspecified type F41.9 Anxiety disorder type: unspecified anxiety disorder Overweight (BMI 25.0-29.9) E66.3 Additional Codes PATRICE-7 Assessment Billing - PATRICE-7 Assessment Tool: PATRICE-7 Assessment 25955 ([id number])
== END 2023-08-20 17:41 | disposition home or self-care (01) ==
LOC: HO.HMGH 17:20
PROVIDERS: PCP Internal Medicine; Visit Provider Internal Medicine
DX: Z00.00 Encounter for general adult medical examination without abnormal findings (principal); K29.00 Acute gastritis without bleeding; E66.3 Overweight; Z68.27 Body mass index [BMI] 27.0-27.9, adult; F41.9 Anxiety disorder, unspecified
CPT/HCPCS: 99396

== ENCOUNTER 2023-09-09 08:53 | Outpatient (REF) | payer OTHER, SELFPAY ==
[2023-09-09 09:12] LABS: MANUAL DIFF FLAG NO
[2023-09-09 09:20] LABS: Basophils Percent Auto 0.5 % (0-2); Eosinophils Absolute Auto 0.1 X10*3/uL (0.0-0.4); Eosinophils Percent Auto 0.7 % (0-4); Hematocrit 41.3 % (37.0-47.0); Hemoglobin 13.9 g/dl (12.0-16.0); Imm Gran Abs Auto 0.02 X10*3/uL (0.00-0.03); Imm Gran Pct Auto 0.3 % (0.0-0.4); Lymphocytes Absolute Auto 1.8 X10*3/uL (1.2-4.9); Lymphocytes Percent Auto 23.4 % (20-40); Mean Corpuscular HGB Conc 33.7 g/dl (31.0-35.0); Mean Corpuscular Hemoglobin 29.8 pg (27.0-33.0); Mean Corpuscular Volume 88.6 fL (80.0-98.0); Mean Platelet Volume 11.5 fL (9.4-12.3); Monocytes Absolute Auto 0.4 X10*3/uL (0.1-1.2); Monocytes Percent Auto 4.9 % (2-11); Neutrophils Absolute Auto 5.3 x10*3/uL (2.0-8.3); Neutrophils Percent Auto 70.2 % (45-73); Platelet Count 264 X10*3/uL (160-400); Red Blood Count 4.66 X10*6/uL (4.20-5.50); Red Cell Distribution Width 12.5 % (11.0-16.0); White Blood Count 7.6 X10*3/uL (4.8-10.8)
[2023-09-09 10:09] LABS: Alanine Aminotransferase 16 U/L (0-31); Alkaline Phosphatase 51 U/L (39-117); Anion Gap 10 (12-20); Aspartate Amino Transferase 14 U/L (5-31); Bilirubin Total 0.5 mg/dL (0.0-1.0); Blood Urea Nitrogen 15 mg/dL (9-16); Calcium 9.4 mg/dL (8.4-10.2); Carbon Dioxide 27 mmol/L (22-29); Chloride 106 mmol/L (96-108); Cholesterol 172 mg/dL (<200); Estimated Glomerular Filt Rate > 60; Glucose Fasting 86 mg/dL (60-99); HDL Cholesterol 43 mg/dL (>40); LDL Cholesterol Calculated 109 mg/dL (<100); Potassium 4.4 mmol/L (3.3-5.1); Sodium 139 mmol/L (135-145); Total Protein 6.9 g/dL (6.5-8.0); Triglycerides 103 mg/dL (<150)
[2023-09-09 10:16] LABS: Vitamin D 25-OH Total 16.4 ng/mL (>30)
[2023-09-09 10:25] LABS: Appearance Urine Clear; Color Urine Yellow; Glucose Urine UA Negative (Negative); Leukocyte Esterase Urine Negative (Negative); Nitrite Urine Negative (Negative); PH 7.5 (5.0-9.0); Urine Blood Negative (Negative); Urine Ketones Negative (Negative); Urine Protein Negative (Neg-Trace)
== END 2023-09-09 08:54 | disposition home or self-care (01) ==
LOC: HO.LAB 08:53
PROVIDERS: PCP Internal Medicine; Visit Provider Internal Medicine
DX: Z00.00 Encounter for general adult medical examination without abnormal findings (principal); E78.00 Pure hypercholesterolemia, unspecified; E55.9 Vitamin D deficiency, unspecified; D64.9 Anemia, unspecified; R30.0 Dysuria
CPT/HCPCS: 36415; 80053; 80061; 81003; 82306; 84443; 85025

== ENCOUNTER 2023-12-25 10:45 | Outpatient (AMB) | payer OTHER, SELFPAY ==
[2023-12-25 10:57] VITALS: BP 104/80; PULSE 80; O2SAT 99; BMI 27.5
--- NOTE | 2023-12-25 10:57 | MHC.PC.OV ---
Vital Signs 12/25/23 10:57 Height 5 ft 3 in Weight 155 lb 2 oz BMI 27.5 BP 104/80 Blood Pressure Location Lt brachial Position Sitting Pulse 80 Pulse Source Pulse Oximeter Pulse Oximetry (%) 99 Oxygen Delivery Method Room Air Intake Visit Reasons: 3-4 months Belt Turner Required: No Accompanied by: Self / Same As Patient Allergies Penicillins [PENICILLINS] Allergy (Severe, Verified 12/25/23 11:20) HIVES amoxicillin [AMOXICILLIN] Allergy (Mild, Verified 12/25/23 11:20) HIVES eggs Allergy (Unknown, Verified 12/25/23 11:20) vomiting, rash doxycycline Allergy (Verified 12/25/23 11:20) Hives sesame seed Allergy (Verified 12/25/23 11:20) Shortness of Breath doxycycline Allergy (Mild, Uncoded 12/25/23 11:20) Hives peanuts Allergy (Unknown, Uncoded 12/25/23 11:20) Unknown tree nuts Allergy (Unknown, Uncoded 12/25/23 11:20) nausea and vomiting Medication List - Last Reconciled 12/25/23 by Stanford Waters MD dextroamphetamine-amphetamine 10 mg 1 tab PO DAILY epinephrine 0.3 mg (0.3 mL) IM Q4H PRN levonorgestrel (Mirena) intrauterine loratadine 10 mg PO DAILY PRN multivitamin 1 tab PO DAILY Tobacco use date assessed: 12/25/23 Dental Screening Dental Screen Date: 12/25/23 Did you have a dental visit in the last 12 months?: Yes Did you have a dental problem in the last 6 months where you did not have access to dental care?: No Was dental information given to patient?: Patient has dentist HPI 3-4 months HPI Details Patient comes in today for her follow up visit States that she has been under a lot of stress (feels more anxious) recently as she is currently going through a divorce She is still seeing her therapist regularly and they have been helping her a lot in getting through some tough times recently States that she feels okay otherwise She denies any increased headaches or dizziness Denies any chest pains, no increased SOB No nausea/vomiting, no abdominal pain States that her heartburns have been mostly manageable/controlled with diet restrictions and Mylanta but she only takes this PRN No change in bowel habits noted Adds that she was diagnosed with ADD by her psychiatrist recently and she has been taking Adderall for a couple of months now, which she feels has been beneficial for her symptoms She also reportedly suffers from frequent headaches (thinks she has migraines but was never formally diagnosed), which she reports are exacerbated by sunlight, hence 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 and was advised that she will need a letter from her PCP for this She had her follow up labs done back in August 2023 - to discuss her results COUNT INCLUDES THE [facility] Medical History (Updated 12/25/23 @ 12:11 by Stanford Waters MD) Attention deficit disorder (ADD) Vitamin D deficiency Hypertrophic scar of skin Overweight (BMI 25.0-29.9) COVID-19 vaccine series completed Ganglion cyst of finger Ovarian cyst Umbilical hernia Breast cyst Surgical History Hx of umbilical hernia repair (07/13/20) Hx of cosmetic surgery History of appendectomy Family History Maternal Grandmother Breast cancer Social History Housing: Apartment Are you a primary home health care coordinator to a significant other at home: No Do you presently have visiting nurse or other home services: No Alcohol intake: never Patient Tobacco Use Status: Never used Tobacco e-Cigarette/Vaping Use: Never Used Second Hand Smoke Exposure: No service: No Current occupational status: unemployed Current occupation: rt handed Sexual orientation: Straight/Heterosexual Gender identity: Female Cognitive needs: No Hearing needs: No Vision needs: Yes Female Reproductive History Menstrual Age of Menarche: 13 Questionnaire PHQ-9 Over the last 2 weeks, how often have you been bothered by any of the following problems? 1. Little interest or pleasure in doing things: not at all 2. Feeling down, depressed, or hopeless: not at all 3. Trouble falling or staying asleep, or sleeping too much: not at all 4. Feeling tired or having little energy: not at all 5. Poor appetite or overeating: not at all 6. Feeling bad about yourself - or that you are a failure or have let yourself or your family down: not at all 7. Trouble concentrating on things, such as reading the newspaper or watching television: not at all 8. Moving or speaking so slowly that other people could have noticed. Or the opposite - being so fidgety or restless that you have been moving around a lot more than usual: not at all 9. Thoughts that you would be better off or of hurting yourself in some way: not at all Total score: 0 Depression Screening Interpretation: Negative Depression Screening Done: Yes 10309 - PHQ-9 Billing: Yes Source: Developed by Drs. Peter Bloom, Kaylah Quintero, Alexandru Bethea and colleagues, with an educational jitendra from [employer]. Thrive Questionnaire Date Thrive assessed: 12/25/23 I am a: Patient What is your living situation today?: I have a steady place to live Within the past 12 months, did the food you bought not last and you didn't have the money to get more?: Never true Within the past 12 months, did you worry whether your food would run out before you got money to buy more?: Never true Do you have trouble paying for medicines?: No Do you have trouble getting transportation to medical appointments?: No Do you have trouble paying your heating and electricity bill?: No Do you have trouble taking care of your child, family member or friend?: No Do you have trouble with day-to-day activities such as bathing, preparing meals, shopping, managing finances, etc.?: No Are you currently unemployed and looking for a job?: No Are you interested in more education?: No Please select the resources that you would like help with: None Currently or been in a relationship where the following occur: No concerns reported THRIVE Score: 0 AUDIT C Alcohol Use Questionnaire (AUDIT-C) 1. How often do you have a drink containing alcohol?: Never 2. How many drinks containing alcohol do you have on a typical day when you are drinking?: 1 or 2 (0) 3. How often do you have six or more drinks on one occasion?: Never Total Score: 0 Score Reviewed/Action Taken: Yes PATRICE-7 AMB Questionnaire PATRICE-7 Date PATRICE - 7 assessed: 12/25/23 Feeling nervous, anxious, or on edge: 0 = Not at all Not being able to stop or control worryin = Not at all Worrying too much about different things: 0 = Not at all Trouble relaxin = Not at all Being so restless that it is hard to sit still: 0 = Not at all Becoming easily annoyed or irritable: 0 = Not at all Feeling afraid as if something awful might happen: 0 = Not at all Total PATRICE-7 score (0-4 normal; 5-9 mild; 10-14 moderate; 15-21 severe): 0 Source: Developed by Drs. Peter Bloom, Kaylah Quintero, Alexandru Bethea and colleagues, with an educational jitendra from [employer]. PATRICE-7 Assessment Billing PATRICE-7 Assessment Tool: PATRICE-7 Assessment 39018 Review of Systems Const Denies chills, Denies fatigue, Denies fever(s) and Denies headache(s) ENT Denies dysphagia, Denies dizziness, Denies otalgia, Denies headache(s), Denies neck pain, Denies odynophagia and Denies sore throat Card Denies chest pain, Denies irregular heart rhythm, Denies palpitations and Denies dyspnea Resp Denies chest congestion, Denies cough and Denies dyspnea GI Denies abdominal pain, Denies constipation, Denies dysphagia, Denies heartburn, Denies diarrhea, Denies nausea, Denies odynophagia and Denies vomiting Denies urinary frequency, Denies dysuria and Denies urinary urgency Musc Denies back pain, Denies arthralgias and Denies neck pain Skin/Breast Denies rash Neuro Denies dizziness and Denies headache(s) Psych Reports anxiety (increased lately), Denies depression and Reports difficulty concentrating (Rx helping) Endo Denies fatigue and Denies palpitations Juan Luis/Lymph Denies easy bruising Physical exam (Primary Care) Vital Signs: Last Vital Signs Pulse 80 12/25/23 10:57 BP 104/80 12/25/23 10:57 Pulse Ox 99 12/25/23 10:57 Oxygen Delivery Method Room Air 12/25/23 10:57 BMI result Body Mass Index 27.5 Tobacco/Smoking Status: Tobacco use Status Tobacco use date assessed 12/25/23 12/25/23 10:58 Patient Tobacco Use Status Never used Tobacco 12/25/23 10:58 e-Cigarette/Vaping Use Never Used 12/25/23 10:58 PHQ-9: PHQ-9 Score PHQ-9: Total score 0 12/25/23 11:24 Depression Screening Interpretation: Negative Thrive Assessment: Date of Thrive Assessment Date Thrive assessed 12/25/23 12/25/23 10:58 Currently or been in a relationship where the following occur: No concerns reported Const General: no acute distress and alert HENMT Ears: TM's normal bilaterally and EAC's normal Throat: Yes posterior oropharynx normal and Yes tonsils normal (no TP congestion) Neck Neck: Yes no lymphadenopathy and Yes supple Thyroid: Thyroid normal Resp Auscultation: clear to auscultation bilaterally, no rales and no wheezes Cardio Rate: regular rate Rhythm: regular rhythm Heart sounds: no murmurs GI Palpation (GI): Soft to palpation and nontender Auscultation: normal bowel sounds General: Yes no CVA tenderness Back/Spine/Pelvis Back: no CVA tenderness Thoracic/Lumbar Spine: thoracic and lumbar spine normal to inspection Skin Rashes: no rashes Extrem General: Yes no clubbing, cyanosis or edema Office Procedures Flu Questionnaire Does the patient have a severe egg allergy?: No Immunizations Fluarix Triv [id number] (PF) 45 mcg (15 mcg x 3)/0.5 mL IM syringe Performing Provider: Stanford Waters MD [facility] Documented (not given) by: DORA Tao on 12/25/23 11:14 Reason Not Given: Patient Refused Results Reviewed Results Reviewed: Laboratory Tests 09/09/23 09/09/23 08:58 09:10 WBC 7.6 Hgb 13.9 Hct 41.3 Plt Count 264 Sodium 139 Potassium 4.4 Creatinine 0.77 Estimated GFR > 60 Fasting Glucose 86 Calcium 9.4 AST 14 ALT 16 Total Protein 6.9 Triglycerides 103 Cholesterol 172 LDL Cholesterol, Calc 109 H HDL Cholesterol 43 25-OH Vitamin D Total 16.4 L TSH 1.20 Ur Specific Meacham 1.020 Urine Protein Negative Urine Glucose (UA) Negative Urine Blood Negative Urine Nitrite Negative Ur Leukocyte Esterase Negative Coding Level of Care Code Est Pt Level 4 (53730) Diagnoses Acute gastritis without hemorrhage, unspecified gastritis type K29.00 Chronicity: acute Gastritis bleeding: without bleeding Gastritis type: unspecified gastritis Vitamin D deficiency E55.9 Allergic rhinitis, unspecified seasonality, unspecified trigger J30.9 Allergic rhinitis trigger: unspecified Allergic rhinitis seasonality: unspecified Attention or concentration deficit R41.840 Attention deficit type: attention or concentration deficit Anxiety disorder, unspecified type F41.9 Anxiety disorder type: unspecified anxiety disorder Overweight (BMI 25.0-29.9) E66.3 Additional Codes PATRICE-7 Assessment Billing - PATRICE-7 Assessment Tool: PATRICE-7 Assessment 45915 ([id number]) PHQ-9 - 33331 - PHQ-9 Billing: Yes ([id number]) Assessment & Plan Assessment & Plan (1) Gastritis: Comment: Dietary modifications, beneficial, no longer using omeprazole. Code(s): K29.70 - Gastritis, unspecified, without bleeding Category: Medical Qualifiers: Chronicity: acute Gastritis bleeding: without bleeding Gastritis type: unspecified gastritis Qualified Code(s): K29.00 - Acute gastritis without bleeding Plan: Reinforced dietary restrictions - states that her GI symptoms have improved a lot with dietary restrictions alone Continue Famotidine 20 mg PRN or Mylanta PRN - states that she tends to take Mylanta more than Famotidine but only on an as-needed basis She has been referred to and seen by GI in the past but as her symptoms are now better-controlled, she wants to hold off on further GI follow ups at this time (2) Vitamin D deficiency: Code(s): E55.9 - Vitamin D deficiency, unspecified Category: Medical Plan: Results of her labs done in August 2023 reviewed and discussed with patient Have advised her that her Vitamin D level is low and she should start taking supplements for this Will start her on Vitamin D3 2000 units QD (3) Allergic rhinitis: Code(s): J30.9 - Allergic rhinitis, unspecified Category: Medical Qualifiers: Allergic rhinitis trigger: unspecified Allergic rhinitis seasonality: unspecified Qualified Code(s): J30.9 - Allergic rhinitis, unspecified Plan: Continue Loratadine 10 mg QD PRN (4) Attention deficit disorder (ADD): Code(s): F98.8 - Other specified behavioral and emotional disorders with onset usually occurring in childhood and adolescence Category: Medical Qualifiers: Attention deficit type: attention or concentration deficit Qualified Code(s): R41.840 - Attention and concentration deficit Plan: Patient states that she was diagnosed with ADD by her psychiatrist and has been on Adderall 10 mg QD for a few months now and feels that it has helped a lot Follow up with psychiatry as scheduled (5) Anxiety disorder: Code(s): F41.9 - Anxiety disorder, unspecified Category: Medical Qualifiers: Anxiety disorder type: unspecified anxiety disorder Qualified Code(s): F41.9 - Anxiety disorder, unspecified Plan: She has declined offer to start her on Rx in the past and still prefers to try natural remedies and avoid prescriptions if possible Thinks that some of her anxiety issues actually stemmed from her ADD and feels that her symptoms have improved on Adderall as well Follow up with psychiatry as scheduled (6) Overweight (BMI 25.0-29.9): Code(s): E66.3 - Overweight Category: Medical Plan: Reinforced diet/exercise as tolerated/lose weight Plan To return as scheduled in August 2024 for her next annual physical examination Orders: Orders Influenza [id number] Immunization Today Z23 - Encounter for immunization Comprehensive [place]. Panel Fast 08/11/24 E78.00 - Pure hypercholesterolemia, unspecified, Z00.00 - Encounter for general adult medical examination without abnormal findings Vitamin D 25-OH Total 08/11/24 E55.9 - Vitamin D deficiency, unspecified, Z00.00 - Encounter for general adult medical examination without abnormal findings Complete Blood Count Auto Diff 08/11/24 D64.9 - Anemia, unspecified, Z00.00 - Encounter for general adult medical examination without abnormal findings Lipid Panel 08/11/24 E78.00 - Pure hypercholesterolemia, unspecified, Z00.00 - Encounter for general adult medical examination without abnormal findings TSH reflex Free T4 08/11/24 E78.00 - Pure hypercholesterolemia, unspecified, Z00.00 - Encounter for general adult medical examination without abnormal findings UA CC w/rflx Micro + Cult 08/11/24 R30.0 - Dysuria, Z00.00 - Encounter for general adult medical examination without abnormal findings Medications: New cholecalciferol (vitamin D3) 50 mcg PO DAILY 90 days 90 caps 3RF E55.9 - Vitamin D deficiency, unspecified
== END 2023-12-25 11:37 | disposition home or self-care (01) ==
PROVIDERS: PCP Internal Medicine; Visit Provider Internal Medicine
DX: K29.00 Acute gastritis without bleeding (principal); E55.9 Vitamin D deficiency, unspecified; J30.9 Allergic rhinitis, unspecified; R41.840 Attention and concentration deficit; F41.9 Anxiety disorder, unspecified; E66.3 Overweight; Z23 Encounter for immunization

== ENCOUNTER → 2023-12-25 10:45 | Outpatient (BNVA) | payer OTHER, SELFPAY | PROVIDERS: PCP Internal Medicine; Visit Provider Internal Medicine | DX: K29.00 Acute gastritis without bleeding (principal); E55.9 Vitamin D deficiency, unspecified; J30.9 Allergic rhinitis, unspecified; R41.840 Attention and concentration deficit; F41.9 Anxiety disorder, unspecified; E66.3 Overweight | CPT/HCPCS: 90471; 96127; 99212 ==

== ENCOUNTER 2024-04-24 12:45 | Outpatient (REF) | payer OTHER, SELFPAY ==
--- OUTSIDE RECORDS SUMMARY | 2024-04-24 15:12 | XMS_ITS | Clinical Summary ---
Author Organization [facility] ity Address [address] [place] [address] Care Team Providers Care Masonry Teacher Name Role Phone Stanford Waters MD Primary Care Provider Surgical History Surgery Date Site/Laterality Comments COLPOSCOPY PROCEDURE: ID COLPOSCOPY ENTIRE VAGINA W/CERVIX IF PRESENT APPENDECTOMY PROCEDURE: HISTORICAL APPENDECTOMY APPENDECTOMY PROCEDURE: ID APPENDECTOMY Medical History Medical History Date Comments [...] age to complete this topic Care Teams Masonry Teacher Relationship Specialty Start Date End Date Stanford Waters MD [address] [place] [address] [address] [place] PCP - General Internal Medicine 09/27/19
[2024-04-25 06:17] LABS: CT PCR NOT DETECTED (Not Detect.); NG PCR NOT DETECTED (Not Detect.)
[2024-04-25 08:44] LABS: Bacterial Vaginosis PCR POSITIVE (Negative); Candida Group PCR NOT DETECTED (Not Detect); Candida glab krusei PCR NOT DETECTED (Not Detect); Trichomonas vaginalis PCR NOT DETECTED (Not Detect)
== END 2024-04-24 12:46 | disposition home or self-care (01) ==
LOC: HO.LNP 12:45
PROVIDERS: PCP Internal Medicine; Visit Provider Advanced Practice Midwife
DX: Z30.431 Encounter for routine checking of intrauterine contraceptive device (principal); Z20.2 Contact with and (suspected) exposure to infections with a predominantly sexual mode of transmission
CPT/HCPCS: 81515; 87491; 87591; 99212; 99459

== ENCOUNTER 2024-04-24 12:45 | Outpatient (AMB) | payer OTHER, SELFPAY ==
--- NOTE | 2024-04-24 12:54 | MHC.OFFVIS ---
Vital Signs 04/24/24 13:00 Height 5 ft 3 in Weight 155 lb BMI 27.5 BP 106/74 Intake Visit Reasons: STD Testing Modeling Analyst: Modeling Analyst Present (Eva) Accompanied by: Self / Same As Patient Allergies Penicillins [PENICILLINS] Allergy (Severe, Verified 04/24/24 13:01) HIVES amoxicillin [AMOXICILLIN] Allergy (Mild, Verified 04/24/24 13:01) HIVES eggs Allergy (Unknown, Verified 04/24/24 13:01) vomiting, rash doxycycline Allergy (Verified 04/24/24 13:01) Hives sesame seed Allergy (Verified 04/24/24 13:01) Shortness of Breath doxycycline Allergy (Mild, Uncoded 12/25/23 11:20) Hives peanuts Allergy (Unknown, Uncoded 12/25/23 11:20) Unknown tree nuts Allergy (Unknown, Uncoded 12/25/23 11:20) nausea and vomiting Medication List - Last Reconciled 04/24/24 by Jennifer Sharma CNM cholecalciferol (vitamin D3) 50 mcg PO DAILY 90 days epinephrine 0.3 mg (0.3 mL) IM Q4H PRN levonorgestrel (Mirena) intrauterine loratadine 10 mg PO DAILY PRN multivitamin 1 tab PO DAILY Is last menstrual period known: Yes Last menstrual period: 03/17/24 Post menopausal: No Patient : No HPI HPI STD Testing: Details: She scheduled an appointment for STD screening. Because it was so far out when from when she called she ended up going to urgent care she said that 1st they called her and told her she had a UTI, and then they called her and said that it was not a UTI and told her to stop those antibiotics and told her that she had bacterial vaginosis and gave her a medication. But it was upsetting her stomach so then she called them and they for a cream but she kept this appointment because she is not sure what she may or may not have and she just wants to be sure. She has her 2nd Mirena she has had this 1 in about 5 years she has some spotting with it and she had had a discharge so she just wants to get checked. She perceives herself as pretty sensitive vaginally and so she has taken to being extremely careful with her vagina and change in her underwear to cotton changing out of work clothes quickly when she goes home and showering only using water not soap and allowing air to her vagina when she is home and this pretty much keeps her healthy. 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) [facility] Medical History (Updated 04/24/24 @ 13:53 by Jennifer Sharma CNM) Attention deficit disorder (ADD) Vitamin D deficiency Hypertrophic scar of skin Overweight (BMI 25.0-29.9) COVID-19 vaccine series completed Ganglion cyst of finger Ovarian cyst Umbilical hernia Breast cyst Surgical History Hx of umbilical hernia repair (07/13/20) Hx of cosmetic surgery History of appendectomy Family History Maternal Grandmother Breast cancer Social History Housing: Apartment Are you a primary career consultant to a significant other at home: No Do you presently have visiting nurse or other home services: No Alcohol intake: never Patient Tobacco Use Status: Never used Tobacco e-Cigarette/Vaping Use: Never Used Second Hand Smoke Exposure: No Patient : No service: No Current occupational status: unemployed Current occupation: rt handed Sexual orientation: Straight/Heterosexual Gender identity: Female Cognitive needs: No Hearing needs: No Vision needs: Yes Female Reproductive History Menstrual Age of Menarche: 13 Duration of menses: 6-7 days Date of last menstrual period: 03/17/24 control method: progestin IUCD (Mirena) Total pregnancies: 4 Full term: 4 Date of last pap smear: 04/30/22 (negative hpv, negative pap smear) History of abnormal pap smear: No Date of Mammogram: 06/08/23 (bi rad 1) Physical Exam Vital Signs: Last Vital Signs BP 106/74 04/24/24 13:00 BMI result Body Mass Index 27.5 Other: External exam within normal limits vagina is pink and clear and moist with no abnormal discharge whatsoever. no clingy adherent discharge that would be indicative of BV. Cervix is multiparous somewhat reddened at center slight amount of spotting Mirena strings visible. External Female Exam: normal external appearance and normal appearance of the urethra Speculum Exam - Vagina: normal appearance of the vagina and normal vaginal discharge Speculum Exam - Cervix: normal appearance of the cervix and Cervical os closed Assessment & Plan Assessment & Plan (1) Encounter for routine checking of intrauterine contraceptive device (IUD): Code(s): Z30.431 - Encounter for routine checking of intrauterine contraceptive device Category: Medical (2) Encounter for screening examination for sexually transmitted disease: Code(s): Z11.3 - Encounter for screening for infections with a predominantly sexual mode of transmission Category: Medical Plan Teaching done about BV and that we do not need to treated unless she has symptoms she does not appear to have an abnormal discharge today but we will await testing and let her know. Discussed her excellent self-care. She will be coming in for an appointment for her annual exam and Pap smear screening if it is time. Also discussed how long the Mirena can be used for control and for the other indication of menorrhagia. We will discuss further. I did discuss the signs and symptoms of ovulation that would indicate that the Mirena might be wearing off. Discussed that otherwise it can be used for between 5 and 8 years, Orders: Orders CT NG by PCR Today Z20.2 - Contact with and (suspected) exposure to infections with a predominantly sexual mode of transmission Bacterial Vaginosis Panel Today Z20.2 - Contact with and (suspected) exposure to infections with a predominantly sexual mode of transmission Coding Level of Care Code Est Pt Level 3 (78687) Diagnoses Encounter for routine checking of intrauterine contraceptive device (IUD) Z30.431 Encounter for screening examination for sexually transmitted disease Z11.3
[2024-04-24 13:00] VITALS: BP 106/74; BMI 27.5
--- OUTSIDE RECORDS SUMMARY | 2024-04-24 14:20 | XMS_ITS | Clinical Summary ---
Author Organization [employer] [facility] ity Address [address] [place] [address] Care Team Providers Care Grand Scribe Name Role Phone Stanford Waters MD Primary Care Provider Surgical History Surgery Date Site/Laterality Comments COLPOSCOPY PROCEDURE: LA COLPOSCOPY ENTIRE VAGINA W/CERVIX IF PRESENT APPENDECTOMY PROCEDURE: HISTORICAL APPENDECTOMY APPENDECTOMY PROCEDURE: LA APPENDECTOMY Medical History Medical History Date Comments Anxiety DX:Anxiety Umbilical hernia 09/14/2019 DX:Umbilical he rnia; COMMENT: Plans to repair PP Family History Medical History Relation Name Comments Diabetes Father Hyperlipidemia Father Hypertension Father Diabetes Maternal Grandfather Breast cancer Maternal Grandmother Diabetes Mother Hyperlipidemia Mother Other cancer Paternal Grandmother Relation Name Status Comments Father Maternal Grandfather Maternal Grandmother Mother Paternal Grandfather Paternal Grandmother Social History Tobacco Use Types Packs/Day Years Used Date Smoking Tobacco: Never Smokeless Tobacco: Never Alcohol Use Standard Drinks/Week Comments No 0 (1 standard drink = 0.6 oz pur e alcohol) Comments Unknown Sex and Gender Information Value Date Recorded Sex Assigned at Not on file Legal Sex Female 6:18 PM EST Gender Identity Not on file Sexual Orientation Not on file Obstetrics History Plan of Treatment Health Maintenance Due Date Last Done Comments Breast Cancer Screening 1981 DTaP,Tdap,and Td Vaccines (1 - Tdap) 2000 Hepatitis B Vaccines (1 of 3 - 19+ 3-dose series) 2000 Cervical Cancer Screening: P ap Smear 2002 COVID-19 Vaccine (2023-2 5 season) 2023 Influenza Vaccine (#1) 2023 HIB Vaccines Aged Out No longer eligi ble based on patient's age to complete this topic HPV Vaccines Aged Out No longer eligi ble based on patient's age to complete this topic Hepatitis A Vaccines Aged Out No long er eligible based on patient's age to complete this topic IPV Vaccines Aged Out No longer eligi ble based on patient's age to complete this topic MMR Vaccines Aged Out No longer eligi ble based on patient's age to complete this topic Meningococcal ACWY Vaccine Aged Out N o longer eligible based on patient's age to complete this topic Meningococcal B Vacine Aged Out No lo nger eligible based on patient's age to complete this topic Pneumococcal Vaccine: Pediat rics (0 to 5 Years) and At-Risk Patients (6 to 64 Years) Aged Out No longer eligible b ased on patient's age to complete this topic RSV Immunization Patients Un eddy 20 months Aged Out No longer eligible b ased on patient's age to complete this topic Varicella Vaccines Aged Out No longer eligible based on patient's age to complete this topic Care Teams Grand Scribe Relationship Specialty Start Date End Date Stanford Waters MD [address] [place] [address] [address] [place] PCP - General Internal Medicine 09/27/19
== END 2024-04-24 14:05 | disposition home or self-care (01) ==
LOC: HO.HWS 12:45
PROVIDERS: PCP Internal Medicine; Visit Provider Advanced Practice Midwife
DX: N76.0 Acute vaginitis (principal); Z30.431 Encounter for routine checking of intrauterine contraceptive device
CPT/HCPCS: 99213

== ENCOUNTER 2024-06-13 09:55 | Outpatient (REF) | payer OTHER, SELFPAY | END 2024-06-13 09:56 | disposition home or self-care (01) | LOC: HO.MAMMO 09:55 | PROVIDERS: PCP Internal Medicine; Visit Provider Internal Medicine | DX: Z12.31 Encounter for screening mammogram for malignant neoplasm of breast (principal) | CPT/HCPCS: 77063; 77067 ==

== ENCOUNTER → 2024-06-13 10:30 | Outpatient (BNV) | payer OTHER, SELFPAY | PROVIDERS: PCP Internal Medicine; Visit Provider Internal Medicine | DX: Z12.31 Encounter for screening mammogram for malignant neoplasm of breast (principal) | CPT/HCPCS: 77063; 77067 ==

== ENCOUNTER 2024-06-18 08:47 | Outpatient (REF) | payer OTHER, SELFPAY ==
--- OUTSIDE RECORDS SUMMARY | 2024-06-18 10:44 | XMS_ITS | Clinical Summary ---
Author Organization [employer] [facility] ity Address [address] [place] [address] Care Team Providers Care Staff Development Manager Name Role Phone Stanford Waters MD Primary Care Provider Surgical History Surgery Date Site/Laterality Comments COLPOSCOPY PROCEDURE: [place] COLPOSCOPY ENTIRE VAGINA W/CERVIX IF PRESENT APPENDECTOMY PROCEDURE: HISTORICAL APPENDECTOMY APPENDECTOMY PROCEDURE: [place] APPENDECTOMY Medical History Medical History Date Comments [...] complete this topic RSV Immunization Patients Un edyd 20 months Aged Out No longer eligible b ased on patient's age to complete this topic Varicella Vaccines Aged Out No longer eligible based on patient's age to complete this topic Care Teams Staff Development Manager Relationship Specialty Start Date End Date Stanford Waters MD [address] [place] [address] [address] [place] PCP - General Internal Medicine 09/27/19
[2024-06-18 12:28] LABS: HBsAGNum1 0.27 S/CO (0.00-0.99); HIV AB/AG Nonreactive (Nonreactive); HIV Num 1 0.06 S/CO (0.00-0.99); Hepatitis B Surface Antigen Negative (Negative); ~HepC Num1 0.25 S/CO (0.00-0.79); ~Hepatitis C Antibody Nonreactive (Nonreactive)
[2024-06-18 12:29] LABS: Syphilis Screen Nonreactive (Nonreactive)
[2024-06-18 18:16] LABS: Bacterial Vaginosis PCR POSITIVE (Negative); Candida Group PCR NOT DETECTED (Not Detect); Candida glab krusei PCR NOT DETECTED (Not Detect); Trichomonas vaginalis PCR NOT DETECTED (Not Detect)
[2024-06-18 18:48] LABS: CT PCR NOT DETECTED (Not Detect.); NG PCR NOT DETECTED (Not Detect.)
== END 2024-06-18 08:48 | disposition home or self-care (01) ==
LOC: HO.LNP 08:47
PROVIDERS: PCP Internal Medicine; Visit Provider Advanced Practice Midwife
DX: Z01.419 Encounter for gynecological examination (general) (routine) without abnormal findings (principal); Z11.3 Encounter for screening for infections with a predominantly sexual mode of transmission
CPT/HCPCS: 81515; 86780; 86803; 87340; 87389; 87491; 87591; 99396; 99459

== ENCOUNTER 2024-06-18 08:47 | Outpatient (AMB) | payer OTHER, SELFPAY ==
[2024-06-18 08:52] VITALS: BP 128/66; PULSE 61; O2SAT 100; BMI 26.7
--- NOTE | 2024-06-18 08:52 | A.OFFVIS_ITS ---
Vital Signs 06/18/24 08:52 Height 5 ft 3 in Weight 151 lb BMI 26.7 BP 128/66 Blood Pressure Location Rt brachial Position Sitting Pulse 61 Pulse Source Pulse Oximeter Pulse Oximetry (%) 100 Oxygen Delivery Method Room Air Intake Visit Reasons: TAG MARKER annual exam Allergies Penicillins [PENICILLINS] Allergy (Severe, Verified 06/18/24 08:52) HIVES amoxicillin [AMOXICILLIN] Allergy (Mild, Verified 06/18/24 08:52) HIVES eggs Allergy (Unknown, Verified 06/18/24 08:52) vomiting, rash doxycycline Allergy (Verified 06/18/24 08:52) Hives sesame seed Allergy (Verified 06/18/24 08:52) Shortness of Breath doxycycline Allergy (Mild, Uncoded 06/18/24 08:52) Hives peanuts Allergy (Unknown, Uncoded 06/18/24 08:52) Unknown tree nuts Allergy (Unknown, Uncoded 06/18/24 08:52) nausea and vomiting Medication List - Last Reconciled 06/18/24 by Jennifer Sharma CNM cholecalciferol (vitamin D3) 50 mcg PO DAILY 90 days epinephrine 0.3 mg (0.3 mL) IM Q4H PRN levonorgestrel (Mirena) intrauterine loratadine 10 mg PO DAILY PRN multivitamin 1 tab PO DAILY Is last menstrual period known: Yes Last menstrual period: 06/14/24 Post menopausal: No Patient : No HPI HPI TAG MARKER annual exam: Details: Here for her all source intelligence annual exam she is not having any concerns she had this Mirena inserted sometime after the of her last child who was born 4-1/2 to 4-3/4 years ago. She had another 1 between her children and with that when she did not get her period at all but this when she does get a light spotting like period that lasts a couple of days she is just finishing it now it is not like her previous heavy periods. She is trying to eat well she has cut down on reddened need she is working on her cholesterol and she also notices it does not make her feel good she goes to the gym and she runs for exercise and walks and hikes. 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 [facility] Medical History Attention deficit disorder (ADD) Vitamin D deficiency Hypertrophic scar of skin Overweight (BMI 25.0-29.9) COVID-19 vaccine series completed Ganglion cyst of finger Ovarian cyst Umbilical hernia Breast cyst Surgical History Hx of umbilical hernia repair (07/13/20) Hx of cosmetic surgery History of appendectomy Family History Maternal Grandmother Breast cancer Social History Housing: Apartment Are you a primary special needs caregiver to a significant other at home: No Do you presently have visiting nurse or other home services: No Alcohol intake: never Patient Tobacco Use Status: Never used Tobacco e-Cigarette/Vaping Use: Never Used Second Hand Smoke Exposure: No service: No Current occupational status: unemployed Current occupation: rt handed Sexual orientation: Straight/Heterosexual Gender identity: Female Cognitive needs: No Hearing needs: No Vision needs: Yes Female Reproductive History Menstrual Age of Menarche: 13 Duration of menses: 3-5 days Date of last menstrual period: 06/14/24 control method: progestin IUCD Total pregnancies: 5 Number of Living Children: 4 Ab induced: 1 Date of last pap smear: 05/02/22 History of abnormal pap smear: No History of STI: Yes Date of Mammogram: 06/13/24 History of abnormal mammogram: No Physical Exam Vital Signs: Last Vital Signs Pulse 61 06/18/24 08:52 BP 128/66 06/18/24 08:52 Pulse Ox 100 06/18/24 08:52 Oxygen Delivery Method Room Air 06/18/24 08:52 BMI result Body Mass Index 26.7 Const General: healthy appearing, comfortable, no acute distress, well developed and alert Nutritional Appearance: average body habitus Orientation/consciousness: patient oriented x3 Limitations: no limitations HEENT Head: Yes normocephalic Neck Neck: Yes normal visual inspection Chest Chest palpation & inspection: normal inspection of the chest Breast/axilla inspection: normal inspection of the breasts and normal inspection of the axillae Breast/axilla palpation: normal palpation of the breasts and normal palpation of the axillae Resp Effort & Inspection: normal respiratory effort GI Inspection: Yes normal to inspection, No Abdominal wall edema and No distended Palpation (GI): Soft to palpation and nontender Other: Brake Liner exam within normal limits no abnormalities seen vagina pink and moist with scant pink end of menses coloration to the otherwise clear mucus cervix multiparous pink smooth healthy appearing with Mirena strings visible cervix long close thick mobile nontender uterus midposition mobile nontender adnexa nontender good muscle tone with Kegel. General: Yes bladder normal to palpation External Female Exam: normal external appearance and normal appearance of the urethra Speculum Exam - Vagina: normal appearance of the vagina, normal palpation and normal vaginal discharge Speculum Exam - Cervix: normal appearance of the cervix, normal palpation and nontender Bimanual exam- vagina & uterus: normal bimanual exam, normal palpation, uterine size normal, bladder normal to palpation, consistency normal, normal palpation, uterine mobility normal, uterine shape normal, No Cervical tenderness present, non-tender and no cervical motion tenderness Bimanual Exam- Adnexa, other: normal adnexae, no masses, normal and No adnexal tenderness Neuro General: patient oriented x3 Assessment & Plan Assessment & Plan (1) Encounter for routine checking of intrauterine contraceptive device (IUD): Code(s): Z30.431 - Encounter for routine checking of intrauterine contraceptive device Category: Medical (2) Women's annual routine gynecological examination: Code(s): Z01.419 - Encounter for gynecological examination (general) (routine) without abnormal findings Category: Medical (3) Cervical cancer screening: Comment: 08/30/2021 Pap is negative with negative HPV. ( paps prior to 2008 w ascus and cin1), pap done 04/30/22.... Code(s): Z12.4 - Encounter for screening for malignant neoplasm of cervix Category: Medical (4) Cervical cancer screening: Comment: 04/30/2022 Pap is negative with negative HPV Code(s): Z12.4 - Encounter for screening for malignant neoplasm of cervix Category: Medical (5) Encounter for screening examination for sexually transmitted disease: Code(s): Z11.3 - Encounter for screening for infections with a predominantly sexual mode of transmission Category: Medical Plan -----Discussed in this visit the following: healthy balanced diet, regular and consistent exercise, getting recommended health screens, doing the best she can for her particular health concerns, kegel exercises, pap smear screening and followup recommendations, mammography screening and SBE, normal changes in cycles in her life stage--- . She is up-to-date on her mammograms she just had 1 on Saturday she is up-to-date with her primary care provider and has an appointment coming up in August. She is eating well and taking care of herself. She is dating somebody new so she just would like to be 100% sure and get all STI testing so she does want to go get the blood work today as well testing done during this visit for gonorrhea chlamydia trichomoniasis as well as BV and yeast. She had a very normal-appearing discharge. Discussed the length of time that the Mirena can be use between 5 and 8 years. If she does start noticing a returned to very very normal menses with symptoms of ovulation she should use protection to protect her from and schedule replacement then. Orders: Orders CT NG by PCR Today Z01.419 - Encounter for gynecological examination (general) (routine) without abnormal findings, Z11.3 - Encounter for screening for infections with a predominantly sexual mode of transmission, Z12.4 - Encounter for screening for malignant neoplasm of cervix, Z30.431 - Encounter for routine checking of intrauterine contraceptive device Syphilis Screen Today Z01.419 - Encounter for gynecological examination (general) (routine) without abnormal findings, Z11.3 - Encounter for screening for infections with a predominantly sexual mode of transmission, Z12.4 - Encounter for screening for malignant neoplasm of cervix, Z30.431 - Encounter for routine checking of intrauterine contraceptive device Bacterial Vaginosis Panel Today Z01.419 - Encounter for gynecological examination (general) (routine) without abnormal findings, Z11.3 - Encounter for screening for infections with a predominantly sexual mode of transmission, Z12.4 - Encounter for screening for malignant neoplasm of cervix, Z30.431 - Encounter for routine checking of intrauterine contraceptive device Hepatitis B Surface Antigen Today Z01.419 - Encounter for gynecological examination (general) (routine) without abnormal findings, Z11.3 - Encounter for screening for infections with a predominantly sexual mode of transmission, Z12.4 - Encounter for screening for malignant neoplasm of cervix, Z30.431 - Encounter for routine checking of intrauterine contraceptive device Hepatitis C Antibody Today Z01.419 - Encounter for gynecological examination (general) (routine) without abnormal findings, Z11.3 - Encounter for screening for infections with a predominantly sexual mode of transmission, Z12.4 - Encounter for screening for malignant neoplasm of cervix, Z30.431 - Encounter for routine checking of intrauterine contraceptive device HIV Ab/Ag Today Z01.419 - Encounter for gynecological examination (general) (routine) without abnormal findings, Z11.3 - Encounter for screening for infections with a predominantly sexual mode of transmission, Z12.4 - Encounter for screening for malignant neoplasm of cervix, Z30.431 - Encounter for routine checking of intrauterine contraceptive device Coding Level of Care Code Est Pt Prev Care 40-64y(58394) Diagnoses Encounter for routine checking of intrauterine contraceptive device (IUD) Z30.431 Women's annual routine gynecological examination Z01.419 Cervical cancer screening Z12.4 Encounter for screening examination for sexually transmitted disease Z11.3
--- OUTSIDE RECORDS SUMMARY | 2024-06-18 09:05 | XMS_ITS | Clinical Summary ---
Author Organization [facility] [facility] ity Address [address] [place] [address] Care Team Providers Care Quality Lab Technician Name Role Phone Stanford Waters MD Primary Care Provider Surgical History Surgery Date Site/Laterality Comments COLPOSCOPY PROCEDURE: [place] COLPOSCOPY ENTIRE VAGINA W/CERVIX IF PRESENT APPENDECTOMY PROCEDURE: HISTORICAL APPENDECTOMY APPENDECTOMY PROCEDURE: [place] APPENDECTOMY Medical History Medical History Date Comments [...] Vaccine (2023-2 5 season) 2023 Influenza Vaccine (Season Ended) 2024 HIB Vaccines Aged Out No longer eligi [...] age to complete this topic Meningococcal B Vaccine Aged Out No l onger eligible based on patient's age to complete [...] age to complete this topic Care Teams Quality Lab Technician Relationship Specialty Start Date End Date Stanford Waters MD [address] [place] [address] [address] [place] PCP - General Internal Medicine 09/27/19
== END 2024-06-18 10:14 | disposition home or self-care (01) ==
LOC: HO.HWSM 08:47
PROVIDERS: PCP Internal Medicine; Visit Provider Advanced Practice Midwife
DX: Z01.419 Encounter for gynecological examination (general) (routine) without abnormal findings (principal)
CPT/HCPCS: 99396; 99459

== ENCOUNTER 2024-06-18 10:21 | Outpatient (REF) | payer OTHER, SELFPAY ==
--- OUTSIDE RECORDS SUMMARY | 2024-06-18 11:35 | XMS_ITS | Clinical Summary ---
Author Organization [facility] [facility] ity Address [address] [place] [address] Care Team Providers Care Equalizing Saw Operator Name Role Phone Stanford Waters MD Primary Care Provider Surgical History Surgery Date Site/Laterality Comments COLPOSCOPY PROCEDURE: [place] COLPOSCOPY ENTIRE VAGINA W/CERVIX IF PRESENT APPENDECTOMY PROCEDURE: HISTORICAL APPENDECTOMY APPENDECTOMY PROCEDURE: [place] APPENDECTOMY Medical History Medical History Date Comments [...] age to complete this topic Care Teams Equalizing Saw Operator Relationship Specialty Start Date End Date Satnford Waters MD [address] [place] [address] [address] [place] PCP - General Internal Medicine 09/27/19
== END 2024-06-18 10:22 | disposition home or self-care (01) ==
LOC: HO.HHCL 10:21
PROVIDERS: Visit Provider Advanced Practice Midwife
DX: Z13.89 Encounter for screening for other disorder (principal)

== ENCOUNTER 2024-06-18 12:03 | Outpatient (REF) | payer OTHER, SELFPAY | END 2024-06-18 12:04 | disposition home or self-care (01) | LOC: HO.HHCL 12:03 | PROVIDERS: Visit Provider Advanced Practice Midwife | DX: Z13.89 Encounter for screening for other disorder (principal) ==

== ENCOUNTER 2024-07-14 13:37 | Emergency (ER) | payer OTHER, SELFPAY ==
--- NOTE | ~2024-07-14 | XR_ITS ---
EXAMINATION: XR LUMBOSACRAL SPINE CLINICAL INFORMATION: trauma COMPARISON: None available. TECHNIQUE: Three views of the lumbosacral spine. FINDINGS: Surgical clips are present right of midline and anterior to the lumbosacral junction. There are 5 nonrib-bearing lumbar thickness. There is subtle convex left curvature of the lumbar spine. Vertebral body height and alignment is preserved otherwise. There is mild disc space narrowing with anterior osteophytes at T10-11. There is subchondral sclerosis and mild degenerative change of the right SI joint. Retroverted T-shaped IUD projects just left of midline. XR/XR lumbar spine 2-3V IMPRESSION: Postsurgical clips, as noted. Mild right SI joint degeneration. Mild degenerative disc at T10-11. Electronically signed by: Med Remy MD 07/14/2024 02:08 PM EDT
--- NOTE | ~2024-07-14 | XR_ITS ---
EXAMINATION: XR THORACIC SPINE CLINICAL INFORMATION: trauma COMPARISON: None available. TECHNIQUE: 3 views of the thoracic spine were obtained. FINDINGS: Vertebral body height and alignment is preserved. There is mild space narrowing and small marginal osteophytes in the midthoracic spine and at T10-11. XR/XR thoracic spine 2V IMPRESSION: Minimal evidence of degenerative disc disease. Electronically signed by: Med Remy MD 07/14/2024 02:10 PM EDT
[2024-07-14 13:41] VITALS: BP 116/65; PULSE 86; RESP 18; TEMP 36.6; O2SAT 99; BMI 26.6
--- NOTE | 2024-07-14 13:45 | ED_ITS ---
HPI - General Adult General Chief complaint: Fall Stated complaint: Fell down stairs - neck pain Related Data Home Medications ?Medication ?Instructions ?Recorded ?Confirmed multivitamin 1 tab PO DAILY 12/02/1907/12 levonorgestrel 21 mcg/24 hr (up to intrauterine 07/21/24 8 years) 52 mg intrauterine device (Mirena) Previous Rx's ?Medication ?Instructions ?Recorded epinephrine 0.3 mg/0.3 mL 0.3 mg (0.3 mL) IM Q4H PRN 0 05/24/23 injection, auto-injector anaphylaxis #2 ea cholecalciferol (vitamin D3) 50 50 mcg PO DAILY 90 day s #90 caps 12/25/23 mcg (2,000 unit) capsule loratadine 10 mg tablet 10 mg PO DAILY PRN allergy 0 04/10/24 symptoms #90 tabs Allergies Allergy/AdvReac Type Severity Reaction Status Date / Time Penicillins (PENICILLINS) Allergy Severe HIVES Verified 07/21/24 14:10 amoxicillin (AMOXICILLIN) Allergy Mild HIVES Verified 07/21/24 14:10 eggs Allergy Unknown vomiting, Verified 07/21/24 14:10 rash doxycycline Allergy Hives Verified 07/21/24 14:10 sesame seed Allergy Shortness Verified 07/21/24 14:10 of Breath doxycycline Allergy Mild Hives Uncoded 07/14/24 13:45 peanuts Allergy Unknown Unknown Uncoded 07/14/24 13:45 tree nuts Allergy Unknown nausea and Uncoded 07/14/24 13:45 vomiting PMFSH Past Medical History Medical History Vaginal discharge Pelvic pressure in female Attention deficit disorder (ADD) Vitamin D deficiency Hypertrophic scar of skin Overweight (BMI 25.0-29.9) COVID-19 vaccine series completed Ganglion cyst of finger Ovarian cyst Umbilical hernia Breast cyst Surgical History Hx of umbilical hernia repair (07/13/20) Hx of cosmetic surgery History of appendectomy Family History Family History Maternal Grandmother Breast cancer Social History Social History Housing: Apartment Are you a primary respiratory care specialist to a significant other at home: No Do you presently have visiting nurse or other home services: No Alcohol intake: never Patient Tobacco Use Status: Never used Tobacco e-Cigarette/Vaping Use: Never Used Second Hand Smoke Exposure: No Patient : No service: No Current occupational status: unemployed Current occupation: rt handed Sexual orientation: Straight/Heterosexual Gender identity: Female Cognitive needs: No Hearing needs: No Vision needs: Yes Physical Exam ED Vital Signs: BMI result Body Mass Index 26.6 Course Course Course Narrative: RME, this is a rapid medical exam performed by Estiven Steve please refer to primary provider for complete H&P- 43-year-old female presents for evaluation of back pain throughout her back pain she reports falling 2 days ago because her shoes slipped off the stairs. She reports falling down approximately 7 steps. she believes she hit her head, but did not lose consciousness. She also reports blurry vision that started 1 hour ago. She wears corrective contacts. no neuro deficits on exam. Plan for x-ray of the thoracic and lumbar spine Discharge Plan Discharge Clinical Impression: Acute neck pain Patient Disposition: Left W/O Completing Treatment Prescriptions: No Action epinephrine 0.3 mg/0.3 mL auto-injector 0.3 mg IM Q4H PRN (Reason: anaphylaxis) Qty: 2 0RF loratadine 10 mg tablet 10 mg PO DAILY PRN (Reason: allergy symptoms) Qty: 90 1RF multivitamin Tablet 1 tab PO DAILY Mirena 20 mcg/24 hours (6 yrs) 52 mg intrauterine device intrauterine cholecalciferol (vitamin D3) 50 mcg (2,000 unit) capsule 50 mcg PO DAILY 90 Days Qty: 90 3RF Discharge Date/Time: 07/14/24 19:27
--- NOTE | 2024-07-14 19:18 | PC.NURSE ---
Pt not in the WR when called back at 1900.
== END 2024-07-14 19:27 | disposition left against medical advice (07) ==
LOC: HO.ED 19:27
PROVIDERS: Emergency Provider Emergency Medicine; PCP Internal Medicine
DX: G89.11 Acute pain due to trauma (principal); M54.2 Cervicalgia; Z91.81 History of falling
CPT/HCPCS: 72070; 72100; 99281; 99283

== ENCOUNTER → 2024-07-14 13:45 | Outpatient (BNV) | payer OTHER, SELFPAY | PROVIDERS: PCP Internal Medicine; Visit Provider Radiology Diagnostic Radiology | DX: M54.2 Cervicalgia (principal); W10.8XXA Fall (on) (from) other stairs and steps, initial encounter | CPT/HCPCS: 72070; 72100 ==

== ENCOUNTER 2024-07-21 14:08 | Outpatient (REF) | payer OTHER, SELFPAY ==
[2024-07-21 17:14] LABS: Bacterial Vaginosis PCR NEGATIVE (Negative); Candida Group PCR NOT DETECTED (Not Detect); Candida glab krusei PCR NOT DETECTED (Not Detect); Trichomonas vaginalis PCR NOT DETECTED (Not Detect)
[2024-07-21 17:47] LABS: CT PCR NOT DETECTED (Not Detect.); NG PCR NOT DETECTED (Not Detect.)
== END 2024-07-21 14:09 | disposition home or self-care (01) ==
LOC: HO.LNP 14:08
PROVIDERS: PCP Internal Medicine; Visit Provider Advanced Practice Midwife
DX: R10.2 Pelvic and perineal pain (principal); Z11.3 Encounter for screening for infections with a predominantly sexual mode of transmission
CPT/HCPCS: 81515; 87491; 87591; 99212

== ENCOUNTER 2024-07-21 14:08 | Outpatient (AMB) | payer OTHER, SELFPAY ==
--- NOTE | 2024-07-21 14:09 | A.OFFVIS_ITS ---
Vital Signs 07/21/24 14:12 Height 5 ft 3 in Weight 167 lb 8 oz BMI 29.7 BP 108/56 L Blood Pressure Location Rt brachial Position Sitting Intake Visit Reasons: ? infection Shampooer Required: No Car Builder: Car Builder Present (Eva) Accompanied by: Self / Same As Patient Allergies Penicillins [PENICILLINS] Allergy (Severe, Verified 07/21/24 14:10) HIVES amoxicillin [AMOXICILLIN] Allergy (Mild, Verified 07/21/24 14:10) HIVES eggs Allergy (Unknown, Verified 07/21/24 14:10) vomiting, rash doxycycline Allergy (Verified 07/21/24 14:10) Hives sesame seed Allergy (Verified 07/21/24 14:10) Shortness of Breath doxycycline Allergy (Mild, Uncoded 07/14/24 13:45) Hives peanuts Allergy (Unknown, Uncoded 07/14/24 13:45) Unknown tree nuts Allergy (Unknown, Uncoded 07/14/24 13:45) nausea and vomiting Medication List - Last Reconciled 07/21/24 by Rupa Ortiz LPN cholecalciferol (vitamin D3) 50 mcg PO DAILY 90 days epinephrine 0.3 mg (0.3 mL) IM Q4H PRN levonorgestrel (Mirena) intrauterine loratadine 10 mg PO DAILY PRN multivitamin 1 tab PO DAILY Is last menstrual period known: Yes Last menstrual period: 06/13/24 Post menopausal: No Patient : No Do you need a note to return to daycare/school/sports/work: No HPI Comments Details: Patient is here today with concerns of vaginal discharge, she reports being prone to BV and feels like she may have another episode occurring. After last treatment she developed a yeast infection requiring addition treatment. 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 [facility] Medical History Vaginal discharge Pelvic pressure in female Attention deficit disorder (ADD) Vitamin D deficiency Hypertrophic scar of skin Overweight (BMI 25.0-29.9) COVID-19 vaccine series completed Ganglion cyst of finger Ovarian cyst Umbilical hernia Breast cyst Surgical History Hx of umbilical hernia repair (07/13/20) Hx of cosmetic surgery History of appendectomy Family History Maternal Grandmother Breast cancer Social History Housing: Apartment Are you a primary regular senior care provider to a significant other at home: No Do you presently have visiting nurse or other home services: No Alcohol intake: never Patient Tobacco Use Status: Never used Tobacco e-Cigarette/Vaping Use: Never Used Second Hand Smoke Exposure: No service: No Current occupational status: unemployed Current occupation: rt handed Sexual orientation: Straight/Heterosexual Gender identity: Female Cognitive needs: No Hearing needs: No Vision needs: Yes Female Reproductive History Menstrual Age of Menarche: 13 Duration of menses: 3-5 days Date of last menstrual period: 06/13/24 control method: progestin IUCD Review of Systems Const All systems reviewed & are unremarkable except as noted in HPI and below Physical Exam Vital Signs: Last Vital Signs BP 108/56 L 07/21/24 14:12 BMI result Body Mass Index 29.7 Const General: cooperative, healthy appearing and no acute distress Orientation/consciousness: patient oriented x3 GI Inspection: Yes normal to inspection Palpation (GI): Soft to palpation and Other GI palpation findings present (Nontender) Rectal Exam - Female: visual inspection normal General: Yes bladder normal to palpation External Female Exam: normal appearance of the urethra Speculum Exam - Vagina: normal appearance of the vagina, normal palpation and normal vaginal discharge Speculum Exam - Cervix: normal appearance of the cervix, normal palpation and Other cervical findings present (IUD strings at the os) Bimanual exam- vagina & uterus: normal bimanual exam, normal palpation, uterine size normal, bladder normal to palpation, normal palpation, uterine shape normal and non-tender Bimanual Exam- Adnexa, other: normal adnexae Neuro General: patient oriented x3 Results AMB Urinalysis Automated WC UR Glucose Last Edit by Rupa Ortiz LPN on 07/21/24 14:25 UR Ketone Last Edit by Rupa Ortiz LPN on 07/21/24 14:25 UR Specific [place] 1.030 Last Edit by Rupa Ortiz LPN on 07/21/24 14:25 UR Blood Small Last Edit by Rupa Ortiz LPN on 07/21/24 14:25 UR Ph 6.0 Last Edit by Rupa Ortiz LPN on 07/21/24 14:25 UR Protein Trace Last Edit by Rupa Ortiz LPN on 07/21/24 14:25 UR Nitrite Negative Last Edit by Rupa Ortiz LPN on 07/21/24 14:25 UR Leukocytes Moderate Last Edit by Rupa Ortiz LPN on 07/21/24 14 :25 AMB Test Urine AMB Test Urine Negative Last Edit by Rupa Ortiz LPN on 07/21/24 14:26 Assessment & Plan Assessment & Plan (1) Pelvic pressure in female: Code(s): R10.2 - Pelvic and perineal pain Category: Medical Plan: Urine analysis trace blood not enough to send for clean-catch patient advised to repeat at the lab. GC chlamydia and BV panel obtained await results for plan of care. (2) Vaginal discharge: Code(s): N89.8 - Other specified noninflammatory disorders of vagina Category: Medical Plan Counseled regarding vaginal tono, gut biome. Encouraged healthy diet and women's health probiotics, consider boric acid protocol if frequent episodes. Boric acid protocol reviewed copy provided. Advised condoms. Await results for plan of care. The patient expressed understanding and agreement with the plan of care. All of her questions and concerns were addressed to the best of my ability. This note is constructed using voice recognition software. While every effort has been made to ensure accuracy, environmental sampling technician errors may have been included. Orders: Orders CT NG by PCR Today Z11.3 - Encounter for screening for infections with a predominantly sexual mode of transmission Bacterial Vaginosis Panel Today Z11.3 - Encounter for screening for infections with a predominantly sexual mode of transmission Urine Culture Today N89.8 - Other specified noninflammatory disorders of vagina, R10.2 - Pelvic and perineal pain Coding Level of Care Code Est Pt Level 3 (49354) Diagnoses Pelvic pressure in female R10.2 Vaginal discharge N89.8
[2024-07-21 14:12] VITALS: BP 108/56; BMI 29.7
--- OUTSIDE RECORDS SUMMARY | 2024-07-21 16:56 | XMS_ITS | Clinical Summary ---
Author Organization [facility] ity Address [address] [place] [address] Care Team Providers Care Cloud Engineer Name Role Phone Stanford Waters MD Primary Care Provider Surgical History Surgery Date Site/Laterality Comments COLPOSCOPY PROCEDURE: CA COLPOSCOPY ENTIRE VAGINA W/CERVIX IF PRESENT APPENDECTOMY PROCEDURE: HISTORICAL APPENDECTOMY APPENDECTOMY PROCEDURE: CA APPENDECTOMY Medical History Medical History Date Comments [...] age to complete this topic Care Teams Cloud Engineer Relationship Specialty Start Date End Date Stanford Waters MD [address] [place] [address] [address] [place] MD PCP - General Internal Medicine 09/27/19
== END 2024-07-21 15:12 | disposition home or self-care (01) ==
PROVIDERS: PCP Internal Medicine; Visit Provider Advanced Practice Midwife
DX: R10.2 Pelvic and perineal pain (principal); N89.8 Other specified noninflammatory disorders of vagina
CPT/HCPCS: 99213

== ENCOUNTER 2024-08-13 08:52 | Outpatient (REF) | payer OTHER, SELFPAY ==
--- OUTSIDE RECORDS SUMMARY | 2024-08-13 09:01 | XMS_ITS | Clinical Summary ---
Author Organization [employer] [facility] ity Address [address] [place] [address] Care Team Providers Care Freight Manager Name Role Phone Stanford Waters MD Primary Care Provider [phone] Surgical History Surgery Date Site/Laterality Comments COLPOSCOPY PROCEDURE: PA COLPOSCOPY ENTIRE VAGINA W/CERVIX IF PRESENT APPENDECTOMY PROCEDURE: HISTORICAL APPENDECTOMY APPENDECTOMY PROCEDURE: PA APPENDECTOMY Medical History Medical History Date Comments [...] age to complete this topic Care Teams Freight Manager Relationship Specialty Start Date End Date Stanford Waters MD [address] [place] [address] [address] [place] PCP - General Internal Medicine 09/27/19
[2024-08-13 09:11] LABS: MANUAL DIFF FLAG NO
[2024-08-13 09:39] LABS: Hematocrit 40.5 % (37.0-47.0); Hemoglobin 13.6 g/dl (12.0-16.0); Imm Gran Abs Auto 0.04 X10*3/uL (0.00-0.03); Imm Gran Pct Auto 0.5 % (0.0-0.4); Lymphocytes Absolute Auto 1.7 X10*3/uL (1.2-4.9); Mean Corpuscular HGB Conc 33.6 g/dl (31.0-35.0); Mean Corpuscular Hemoglobin 29.5 pg (27.0-33.0); Mean Corpuscular Volume 87.9 fL (80.0-98.0); NRBC Abs Auto 0.000 X10*3/uL (0.0-0.012); NRBC Pct Auto 0.0 /100WBC (0.0-0.2); Platelet Count 258 X10*3/uL (160-400); Red Blood Count 4.61 X10*6/uL (4.20-5.50); White Blood Count 8.0 X10*3/uL (4.8-10.8)
[2024-08-13 10:16] LABS: Alanine Aminotransferase 32 U/L (0-31); Albumin Level 4.1 g/dL (3.5-5.0); Alkaline Phosphatase 53 U/L (39-117); Anion Gap 8 (12-20); Aspartate Amino Transferase 21 U/L (5-31); Blood Urea Nitrogen 7 mg/dL (9-16); Calcium 9.0 mg/dL (8.4-10.2); Carbon Dioxide 28 mmol/L (22-29); Chloride 107 mmol/L (96-108); Cholesterol 168 mg/dL (<200); Estimated Glomerular Filt Rate > 60; HDL Cholesterol 46 mg/dL (>40); Potassium 4.2 mmol/L (3.3-5.1); Sodium 139 mmol/L (135-145); Total Protein 6.7 g/dL (6.5-8.0); Triglycerides 164 mg/dL (<150)
[2024-08-13 10:22] LABS: Appearance Urine Clear; Glucose Urine UA Negative (Negative); PH 7.0 (5.0-9.0); Specific Gravity - Urine 1.020 (1.005-1.025)
== END 2024-08-13 08:53 | disposition home or self-care (01) ==
LOC: HO.LAB 08:52
PROVIDERS: PCP Internal Medicine; Visit Provider Internal Medicine
DX: E55.9 Vitamin D deficiency, unspecified (principal); D64.9 Anemia, unspecified; E78.00 Pure hypercholesterolemia, unspecified; R30.0 Dysuria; Z00.00 Encounter for general adult medical examination without abnormal findings
CPT/HCPCS: 36415; 80053; 80061; 81003; 82306; 84443; 85025

== ENCOUNTER 2024-08-21 10:12 | Outpatient (AMB) | payer OTHER, SELFPAY ==
--- NOTE | 2024-08-21 10:24 | A.OFFPC_ITS ---
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: No Accompanied by: Self / Same As Patient Allergies Penicillins (PENICILLINS) Allergy (Severe, Verified 08/21/24 10:49) HIVES amoxicillin (AMOXICILLIN) Allergy (Mild, Verified 08/21/24 10:49) HIVES eggs Allergy (Unknown, Verified 08/21/24 10:49) vomiting, rash doxycycline Allergy (Verified 08/21/24 10:49) Hives sesame seed Allergy (Verified 08/21/24 10:49) Shortness of Breath doxycycline Allergy (Mild, Uncoded 08/21/24 10:49) Hives peanuts Allergy (Unknown, Uncoded 08/21/24 10:49) Unknown tree nuts Allergy (Unknown, Uncoded 08/21/24 10:49) nausea and vomiting Medication List - Last Reconciled 08/21/24 by Stanford Waters MD cholecalciferol (vitamin D3) 50 mcg PO DAILY 90 days epinephrine 0.3 mg (0.3 mL) IM Q4H PRN levonorgestrel (Mirena) intrauterine loratadine 10 mg PO DAILY PRN multivitamin 1 tab PO DAILY Tobacco use date assessed: 08/21/24 Dental Screening Dental Screen Date: 08/21/24 Did you have a dental visit in the last 12 months?: Yes Did you have a dental problem in the last 6 months where you did not have access to dental care?: No Was dental information given to patient?: Patient has dentist HPI Annual Exam HPI Details Patient comes in today for her annual physical examination States that she feels okay She denies any headaches or dizziness Denies any chest pains, no SOB No nausea/vomiting, no abdominal pain Reports that she has been experiencing frequent bouts of constipation lately States that she has taken some OTC stool softeners at times with (+) relief and is wondering how often she can take stool softeners without it resulting in any problems Denies any acute urinary symptoms Needs her Epipen Rx refilled today She had her follow up labs done last week - to discuss her results Adds that she needs to have a TB test done as well as a requirement for her employment - 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 works as a M[employer] M[employer]ER She is up-to-date with her yearly gynecology exam and pap smear as well as her annual mammogram (done in June 2024) [facility] Medical History (Updated 08/21/24 @ 11:18 by Stanford Waters MD) Hypertriglyceridemia Vaginal discharge Pelvic pressure in female Attention deficit disorder (ADD) Vitamin D deficiency Hypertrophic scar of skin Overweight (BMI 25.0-29.9) COVID-19 vaccine series completed Ganglion cyst of finger Ovarian cyst Umbilical hernia Breast cyst Surgical History Hx of umbilical hernia repair (07/13/20) Hx of cosmetic surgery History of appendectomy Family History Maternal Grandmother Breast cancer Social History Housing: Apartment Are you a primary healthcare management to a significant other at home: No Do you presently have visiting nurse or other home services: No Alcohol intake: never Patient Tobacco Use Status: Never used Tobacco e-Cigarette/Vaping Use: Never Used Second Hand Smoke Exposure: No service: No Current occupational status: unemployed Current occupation: rt handed Sexual orientation: Straight/Heterosexual Gender identity: Female Cognitive needs: No Hearing needs: No Vision needs: Yes Female Reproductive History Menstrual Age of Menarche: 13 Questionnaire PHQ-9 Over the last 2 weeks, how often have you been bothered by any of the following problems? 1. Little interest or pleasure in doing things: not at all 2. Feeling down, depressed, or hopeless: several days 3. Trouble falling or staying asleep, or sleeping too much: several days 4. Feeling tired or having little energy: several days 5. Poor appetite or overeating: several days 6. Feeling bad about yourself - or that you are a failure or have let yourself or your family down: several days 7. Trouble concentrating on things, such as reading the newspaper or watching television: several days 8. Moving or speaking so slowly that other people could have noticed. Or the opposite - being so fidgety or restless that you have been moving around a lot more than usual: several days 9. Thoughts that you would be better off or of hurting yourself in some way: not at all Total score: 7 Depression Screening Interpretation: Positive Depression Screening Follow-up: Follow-up Visit Requested Depression Screening Done: Yes 18371 - PHQ-9 Billing: Yes Source: Developed by Drs. Peter Bloom, Kaylah Quintero, Alexandru Bethea and colleagues, with an educational jitendra from studentSN. Thrive Questionnaire Date Thrive assessed: 08/21/24 I am a: Patient What is your living situation today?: I have a place to live, but I am worried about losing it in the future Within the past 12 months, did the food you bought not last and you didn't have the money to get more?: Never true Within the past 12 months, did you worry whether your food would run out before you got money to buy more?: Never true Do you have trouble paying for medicines?: No Do you have trouble getting transportation to medical appointments?: No Do you have trouble paying your heating and electricity bill?: No Do you have trouble taking care of your child, family member or friend?: No Do you have trouble with day-to-day activities such as bathing, preparing meals, shopping, managing finances, etc.?: No Are you currently unemployed and looking for a job?: Yes Are you interested in more education?: No Please select the resources that you would like help with: None Currently or been in a relationship where the following occur: No concerns reported THRIVE Score: 1 AUDIT C Alcohol Use Questionnaire (AUDIT-C) 1. How often do you have a drink containing alcohol?: Monthly or less 2. How many drinks containing alcohol do you have on a typical day when you are drinking?: 1 or 2 3. How often do you have six or more drinks on one occasion?: Never Total Score: 1 Score Reviewed/Action Taken: Yes PATRICE-7 AMB Questionnaire PATRICE-7 Date PATRICE - 7 assessed: 08/21/24 Feeling nervous, anxious, or on edge: 1 = Several days Not being able to stop or control worryin = Several days Worrying too much about different things: 2 = More than half the days Trouble relaxin = More than half the days Being so restless that it is hard to sit still: 2 = More than half the days Becoming easily annoyed or irritable: 1 = Several days Feeling afraid as if something awful might happen: 1 = Several days Total PATRICE-7 score (0-4 normal; 5-9 mild; 10-14 moderate; 15-21 severe): 10 Source: Developed by Drs. Peter Bloom, Kaylah Quintero, Alexandru Bethea and colleagues, with an educational jitendra from student[employer]. Review of Systems Const Denies chills, Denies fatigue, Denies fever(s), Denies headache(s) and Denies malaise Eyes Denies blurry vision, Denies change in vision, Denies irritation and Denies itchy eyes ENT Denies dysphagia, Denies dizziness, Denies otalgia, Denies headache(s), Denies nasal congestion, Denies neck pain, Denies odynophagia, Denies sinus pain and Denies sore throat Card Denies chest pain, Denies rapid heart rate, Denies irregular heart rhythm, Denies palpitations and Denies dyspnea Resp Denies chest congestion, Denies cough, Denies dyspnea and Denies wheezing GI Denies abdominal pain, Denies bloating, Reports constipation (recurrent/frequent lately), Denies dysphagia, Denies heartburn, Denies diarrhea, Denies nausea, Denies odynophagia and Denies vomiting Denies hematuria, Denies urinary frequency, Denies dysuria, Denies urinary incontinence and Denies urinary urgency Musc Denies back pain, Denies arthralgias, Denies joint swelling, Denies muscle weakness and Denies neck pain Skin/Breast Denies breast pain, Denies breast mass, Denies change in pigmentation, Denies lesions, Denies rash and Denies unusual bruising Neuro Denies dizziness, Denies headache(s) and Denies paresthesias Psych Denies anxiety and Denies depression Endo Denies fatigue and Denies palpitations Juan Luis/Lymph Denies easy bruising Aller/Immun Denies itchy eyes and Denies wheezing Physical exam (Primary Care) Vital Signs: Last Vital Signs Pulse 67 08/21/24 10:25 BP 116/60 08/21/24 10:25 Pulse Ox 99 08/21/24 10:25 Oxygen Delivery Method Room Air 08/21/24 10:25 BMI result Body Mass Index 29.3 Tobacco/Smoking Status: Tobacco use Status Tobacco use date assessed 08/21/24 07 10:31 Patient Tobacco Use Status Never used Tobacco 08/21/24 10:31 e-Cigarette/Vaping Use Never Used 08/21/24 10:31 PHQ-9: PHQ-9 Score PHQ-9: Total score 7 08/21/24 10:31 Depression Screening Interpretation: Positive Depression Screening Follow-up: Follow-up Visit Requested Thrive Assessment: Date of Thrive Assessment Date Thrive assessed 08/21/24 08/21/24 10:31 Currently or been in a relationship where the following occur: No concerns reported Const General: no acute distress, alert and awake Orientation/consciousness: patient oriented x3 HENMT Head: Yes normocephalic and Yes atraumatic Ears: external ears normal, TM's normal bilaterally and EAC's normal General nose exam: No nasal discharge present Face and sinus: Yes normal facial exam and Yes sinuses nontender Teeth and gingiva: dentition normal Throat: Yes posterior oropharynx normal and Yes tonsils normal (no TP congestion) Eyes Eyelids: Yes eyelids normal Conjunctivae: conjunctivae normal Pupils: Equal, round and reactive pupils present EOM: EOMs intact bilaterally Neck Neck: Yes no lymphadenopathy and Yes supple Thyroid: Thyroid normal Resp Auscultation: clear to auscultation bilaterally, no rales and no wheezes Cardio Rate: regular rate Rhythm: regular rhythm Heart sounds: no murmurs GI Palpation (GI): Soft to palpation, nontender and No hepatosplenomegaly present Auscultation: normal bowel sounds General: Yes no CVA tenderness Back/Spine/Pelvis Back: no CVA tenderness Thoracic/Lumbar Spine: thoracic and lumbar spine normal to inspection Skin Lesions: no lesions Rashes: no rashes Neuro General: patient oriented x3, moves all extremities, no focal motor deficits and CN's II-XI intact bilaterally Cranial nerves: Yes Equal, round and reactive pupils present Cognition (Neuro): normal cognition Gait exam (Neuro): Normal gait present Extrem General: Yes no clubbing, cyanosis or edema Results Reviewed Results Reviewed: Laboratory Tests 08/13/24 08/13/24 09:07 09:10 WBC 8.0 Hgb 13.6 Hct 40.5 Plt Count 258 Sodium 139 Potassium 4.2 Creatinine 0.68 Estimated GFR > 60 Fasting Glucose 85 Calcium 9.0 AST 21 ALT 32 H Triglycerides 164 H Cholesterol 168 LDL Cholesterol, Calc 90 HDL Cholesterol 46 25-OH Vitamin D Total 24.9 L TSH 2.14 Ur Specific [place] 1.020 Urine Protein Negative Urine Glucose (UA) Negative Urine Blood Negative Urine Nitrite Negative Ur Leukocyte Esterase Negative Coding Level of Care Code Est Pt Prev Care 40-64y(78737) Diagnoses Annual physical exam Z00.00 Hypertriglyceridemia E78.1 Acute gastritis without hemorrhage, unspecified gastritis type K29.00 Gastritis type: unspecified gastritis Chronicity: acute Gastritis bleeding: without bleeding Constipation, unspecified constipation type K59.00 Constipation type: unspecified constipation type Vitamin D deficiency E55.9 Allergic rhinitis, unspecified seasonality, unspecified trigger J30.9 Allergic rhinitis trigger: unspecified Allergic rhinitis seasonality: unspecified 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 Attention or concentration deficit R41.840 Attention deficit type: attention or concentration deficit Anxiety disorder, unspecified type F41.9 Anxiety disorder type: unspecified anxiety disorder Overweight (BMI 25.0-29.9) E66.3 Additional Codes PHQ-9 - 12226 - PHQ-9 Billing: Yes ([id number]) Assessment & Plan Assessment & Plan (1) Annual physical exam: Code(s): Z00.00 - Encounter for general adult medical examination without abnormal findings Category: Medical Plan: Results of her labs done last week reviewed and discussed with patient She is up-to-date with her yearly gynecology exam and pap smear as well as her annual mammogram (done in June 2024) She is presently on Mirena for control Per request, T spot ordered (2) Hypertriglyceridemia: Code(s): E78.1 - Pure hyperglyceridemia Category: Medical Plan: She is advised that her serum TG level went up slightly on her recent labs Discussed low cholesterol diet Will just have her recheck her labs and fasting lipids again before she returns for her next annual physical next year (3) Gastritis: Comment: Dietary modifications, beneficial, no longer using omeprazole. Code(s): K29.70 - Gastritis, unspecified, without bleeding Category: Medical Qualifiers: Gastritis type: unspecified gastritis Chronicity: acute Gastritis bleeding: without bleeding Qualified Code(s): K29.00 - Acute gastritis without bleeding Plan: Reinforced dietary restrictions - states that her GI symptoms have improved a lot with dietary restrictions alone [place] Famotidine 20 mg PRN or Mylanta PRN - states that she tends to take Mylanta rather than Famotidine but only on an as-needed basis She has been referred to and seen by GI in the past but as her symptoms are now better-controlled, she wants to hold off on further GI follow ups at this time (4) Constipation: Comment: Working on diet and other modalities. Code(s): K59.00 - Constipation, unspecified Category: Medical Qualifiers: Constipation type: unspecified constipation type Qualified Code(s): K59.00 - Constipation, unspecified Plan: Discussed increased oral fluids and dietary fiber to help better manage her constipation She is advised that she can continue OTC stool softeners PRN for now but if she finds that she has to take them more often than expected, then she would be better off taking Miralax on a daily basis (5) Vitamin D deficiency: Code(s): E55.9 - Vitamin D deficiency, unspecified Category: Medical Plan: Her Vitamin D level is still low on her recent labs but have improved a lot from previous Continue Vitamin D3 2000 units QD (6) Allergic rhinitis: Code(s): J30.9 - Allergic rhinitis, unspecified Category: Medical Qualifiers: Allergic rhinitis trigger: unspecified Allergic rhinitis seasonality: unspecified Qualified Code(s): J30.9 - Allergic rhinitis, unspecified Plan: Continue Loratadine 10 mg QD PRN (7) 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: Code(s): T78.06XS - 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 Category: Medical Plan: Epipen Rx refill sent to her local pharmacy today (8) Attention deficit disorder (ADD): Code(s): F98.8 - Other specified behavioral and emotional disorders with onset usually occurring in childhood and adolescence Category: Medical Qualifiers: Attention deficit type: attention or concentration deficit Qualified Code(s): R41.840 - Attention and concentration deficit Plan: Patient states that she was diagnosed with ADD by her psychiatrist and has been on Adderall 10 mg QD in the past but has stopped taking her Rx and prefers not to take anything else at this time Follow up with psychiatry as scheduled (9) Anxiety disorder: Code(s): F41.9 - Anxiety disorder, unspecified Category: Medical Qualifiers: Anxiety disorder type: unspecified anxiety disorder Qualified Code(s): F41.9 - Anxiety disorder, unspecified Plan: She has declined offer to start her on Rx in the past and still prefers to try natural remedies and avoid prescriptions if possible Thinks that some of her anxiety issues actually stemmed from her ADD before but she feels she is doing much better lately Follow up with psychiatry as scheduled (10) Overweight (BMI 25.0-29.9): Code(s): E66.3 - Overweight Category: Medical Plan: Reinforced diet/exercise as tolerated/lose weight Plan To return in 1 year for her next annual physical examination Orders: Orders T Spot TB Today Z11.1 - Encounter for screening for respiratory tuberculosis UA CC w/rflx Micro + Cult 1 Year R30.0 - Dysuria, Z00.00 - Encounter for general adult medical examination without abnormal findings Complete Blood Count Auto Diff 1 Year D64.9 - Anemia, unspecified, Z00.00 - Encounter for general adult medical examination without abnormal findings Comprehensive [place]. Panel Fast 1 Year E78.00 - Pure hypercholesterolemia, unspecified, Z00.00 - Encounter for general adult medical examination without abnormal findings Lipid Panel 1 Year E78.00 - Pure hypercholesterolemia, unspecified, Z00.00 - Encounter for general adult medical examination without abnormal findings TSH reflex Free T4 1 Year E78.00 - Pure hypercholesterolemia, unspecified, Z00.00 - Encounter for general adult medical examination without abnormal findings Vitamin D 25-OH Total 1 Year E55.9 - Vitamin D deficiency, unspecified, Z00.00 - Encounter for general adult medical examination without abnormal findings Medications: Refilled epinephrine 0.3 mg (0.3 mL) IM Q4H PRN 2 ea 0RF anaphylaxis T78.06XS - 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
[2024-08-21 10:25] VITALS: BP 116/60; PULSE 67; O2SAT 99; BMI 29.3
--- OUTSIDE RECORDS SUMMARY | 2024-08-21 10:42 | XMS_ITS | Clinical Summary ---
Author Organization [facility] [facility] ity Address [address] [place] [address] Care Team Providers Care Rubber Cutter And Shape Carver Name Role Phone Stanford Waters MD Primary Care Provider Surgical History Surgery Date Site/Laterality Comments COLPOSCOPY PROCEDURE: VA COLPOSCOPY ENTIRE VAGINA W/CERVIX IF PRESENT APPENDECTOMY PROCEDURE: HISTORICAL APPENDECTOMY APPENDECTOMY PROCEDURE: VA APPENDECTOMY Medical History Medical History Date Comments [...] (2023-2 5 season) 2023 Influenza Vaccine (#1) 2024 HIB Vaccines Aged Out No longer [...] 5 Years) and At-Risk Patients (6 to 49 Years) Aged Out No longer eligible b ased on patient's age to complete this topic RSV Immunization Patients Un eddy 20 months Aged Out No longer eligible b ased on patient's age to complete this topic Varicella Vaccines Aged Out No longer eligible based on patient's age to complete this topic Care Teams Rubber Cutter And Shape Carver Relationship Specialty Start Date End Date Stanford Waters MD [address] [place] [address] [address] [place] PCP - General Internal Medicine 09/27/19
== END 2024-08-21 11:06 | disposition home or self-care (01) ==
LOC: HO.HMCH 10:13
PROVIDERS: PCP Internal Medicine; Visit Provider Internal Medicine
DX: Z00.00 Encounter for general adult medical examination without abnormal findings (principal); E78.1 Pure hyperglyceridemia; K29.00 Acute gastritis without bleeding; K59.00 Constipation, unspecified; E55.9 Vitamin D deficiency, unspecified; J30.9 Allergic rhinitis, unspecified; T78.0 Anaphylactic reaction due to food; R41.840 Attention and concentration deficit; F41.9 Anxiety disorder, unspecified; E66.3 Overweight

== ENCOUNTER → 2024-08-21 10:12 | Outpatient (BNVA) | payer OTHER, SELFPAY | PROVIDERS: PCP Internal Medicine; Visit Provider Internal Medicine | DX: Z00.00 Encounter for general adult medical examination without abnormal findings (principal); E78.1 Pure hyperglyceridemia; K29.00 Acute gastritis without bleeding; K59.00 Constipation, unspecified; E55.9 Vitamin D deficiency, unspecified; J30.9 Allergic rhinitis, unspecified; R41.840 Attention and concentration deficit; F41.9 Anxiety disorder, unspecified; E66.3 Overweight; R30.0 Dysuria; D64.9 Anemia, unspecified; E78.00 Pure hypercholesterolemia, unspecified; T78.0 Anaphylactic reaction due to food; X58.XXXS Exposure to other specified factors, sequela | CPT/HCPCS: 96127; 99396 ==

== ENCOUNTER 2024-08-28 12:03 | Outpatient (REF) | payer OTHER, SELFPAY ==
--- OUTSIDE RECORDS SUMMARY | 2024-08-28 12:08 | XMS_ITS | Clinical Summary ---
Author Organization [facility] ity Address [address] [place] [address] Care Team Providers Care Floor Press Operator Name Role Phone Stanford Waters MD Primary Care Provider Surgical History Surgery Date Site/Laterality Comments COLPOSCOPY PROCEDURE: AL COLPOSCOPY ENTIRE VAGINA W/CERVIX IF PRESENT APPENDECTOMY PROCEDURE: HISTORICAL APPENDECTOMY APPENDECTOMY PROCEDURE: AL APPENDECTOMY Medical History Medical History Date Comments [...] age to complete this topic Care Teams Floor Press Operator Relationship Specialty Start Date End Date Stanford Waters MD [address] [place] [address] [address] [place] PCP - General Internal Medicine 09/27/19
[2024-08-31 16:49] LABS: TS Negative Control Passed; TS Panel A 0; TS Panel B 1; TS Positive Control Passed; TSpotTB Negative (Negative)
== END 2024-08-28 12:04 | disposition home or self-care (01) ==
LOC: HO.LAB 12:03
PROVIDERS: PCP Internal Medicine; Visit Provider Internal Medicine
DX: R10.2 Pelvic and perineal pain (principal); Z11.1 Encounter for screening for respiratory tuberculosis; N89.8 Other specified noninflammatory disorders of vagina
CPT/HCPCS: 36415; 86481; 87086

== ENCOUNTER 2024-11-17 09:48 | Outpatient (AMB) | payer OTHER, SELFPAY ==
--- NOTE | 2024-11-17 09:49 | A.OFFVIS_ITS ---
Intake Visit Reasons: vaginal infection and PC bleeding Customer Service Dispatcher: Customer Service Dispatcher Present (Eva) Accompanied by: Self / Same As Patient Allergies Penicillins (PENICILLINS) Allergy (Severe, Verified 11/17/24 09:52) HIVES amoxicillin (AMOXICILLIN) Allergy (Mild, Verified 11/17/24 09:52) HIVES eggs Allergy (Unknown, Verified 11/17/24 09:52) vomiting, rash doxycycline Allergy (Verified 11/17/24 09:52) Hives sesame seed Allergy (Verified 11/17/24 09:52) Shortness of Breath doxycycline Allergy (Mild, Uncoded 08/21/24 10:49) Hives peanuts Allergy (Unknown, Uncoded 08/21/24 10:49) Unknown tree nuts Allergy (Unknown, Uncoded 08/21/24 10:49) nausea and vomiting Medication List - Last Reconciled 11/17/24 by Jennifer Sharma CNM cholecalciferol (vitamin D3) 50 mcg PO DAILY 90 days epinephrine 0.3 mg (0.3 mL) IM Q4H PRN levonorgestrel (Mirena) intrauterine loratadine 10 mg PO DAILY PRN multivitamin 1 tab PO DAILY HPI HPI vaginal infection and PC bleeding: Details: Discussed her concerns she is not sexually active at the moment but when she was with her previous partner she learned that he was active with another person. So she wants screening for STIs she also has been challenged with vaginal discharge and has had BV often on when she takes the oral antibiotics so the gel she has side effects and ends up with a yeast infection among other things and wants to avoid that if possible so she has resumed taking boric acid and also an online prescription or supplement called tono which is supposed a balanced things she has been taking that for about 3 days right now she seems better although she did have some pressure before urinating yesterday and a little bit today so she would like a urine to be sent as well. She is currently content with the Mirena which she has had since 2020. Every now and then she thinks about getting her tubes tied but she is not 100% about closing the door even though she does not really plan to have anymore children. If BV does show up she is leaning towards not using medication but continuing with the boric acid and is intent on using condoms 100% in the future. [facility] Medical History Hypertriglyceridemia Vaginal discharge Pelvic pressure in female Attention deficit disorder (ADD) Vitamin D deficiency Hypertrophic scar of skin Overweight (BMI 25.0-29.9) COVID-19 vaccine series completed Ganglion cyst of finger Ovarian cyst Umbilical hernia Breast cyst Surgical History Hx of umbilical hernia repair (07/13/20) Hx of cosmetic surgery History of appendectomy Family History Maternal Grandmother Breast cancer Social History Housing: Apartment Are you a primary resident care assistant to a significant other at home: No Do you presently have visiting nurse or other home services: No Alcohol intake: never Patient Tobacco Use Status: Never used Tobacco e-Cigarette/Vaping Use: Never Used Second Hand Smoke Exposure: No service: No Current occupational status: unemployed Current occupation: rt handed Sexual orientation: Straight/Heterosexual Gender identity: Female Cognitive needs: No Hearing needs: No Vision needs: Yes Female Reproductive History Menstrual Age of Menarche: 13 control method: progestin IUCD (Mirena ) Total pregnancies: 5 Full term: 4 Date of last pap smear: 04/30/22 (negative pap smear, negative hpv) History of abnormal pap smear: No Date of Mammogram: 06/13/24 (negative pap smear, negative hpv ) Physical Exam Other: External exam within normal limits vagina is pink and moist with fairly normal- appearing discharge multiparous cervix pink parous long close thick with eyelash length of Mirena string visible very normal-appearing mucus we will await culture results. Discussed with the patient that her plan to try and avoid metronidazole and also metronidazole gel maybe a georges 1 but if she is offered the medication she can choose either take a for future use for PRN or decline it as she sees fit she maybe having better luck with her plan for the probiotics and boric acid PRN as well as condoms. Assessment & Plan Assessment & Plan (1) Presence of 52 mg levonorgestrel-releasing intrauterine device (IUD): Code(s): Z97.5 - Presence of (intrauterine) contraceptive device Category: Social Hx (2) Pelvic pressure in female: Code(s): R10.2 - Pelvic and perineal pain Category: Medical (3) Vaginal discharge: Code(s): N89.8 - Other specified noninflammatory disorders of vagina Category: Medical (4) Encounter for screening examination for sexually transmitted disease: Code(s): Z11.3 - Encounter for screening for infections with a predominantly sexual mode of transmission Category: Medical Plan Discussed her concerns she is not sexually active at the moment but when she was with her previous partner she learned that he was active with another person. So she wants screening for STIs she also has been challenged with vaginal discharge and has had BV often on when she takes the oral antibiotics so the gel she has side effects and ends up with a yeast infection among other things and wants to avoid that if possible so she has resumed taking boric acid and also an online prescription or supplement called tono which is supposed a balanced things she has been taking that for about 3 days right now she seems better although she did have some pressure before urinating yesterday and a little bit today so she would like a urine to be sent as well. She is currently content with the [employer] which she has had since 2020. Every now and then she thinks about getting her tubes tied but she is not 100% about closing the door even though she does not really plan to have anymore children. If BV does show up she is leaning towards not using medication but continuing with the boric acid and is intent on using condoms 100% in the future. Discussed with the patient that her plan to try and avoid metronidazole and also metronidazole gel maybe a georges 1 but if she is offered the medication she can choose either take a for future use for PRN or decline it as she sees fit she maybe having better luck with her plan for the probiotics and boric acid PRN as well as condoms. Orders: Orders Hepatitis B Surface Antigen Today N89.8 - Other specified noninflammatory disorders of vagina, R10.2 - Pelvic and perineal pain, Z11.3 - Encounter for screening for infections with a predominantly sexual mode of transmission, Z97.5 - Presence of (intrauterine) contraceptive device Hepatitis C Antibody Today N89.8 - Other specified noninflammatory disorders of vagina, R10.2 - Pelvic and perineal pain, Z97.5 - Presence of (intrauterine) contraceptive device Bacterial Vaginosis Panel Today N89.8 - Other specified noninflammatory disorders of vagina, N94.9 - Unspecified condition associated with female genital organs and menstrual cycle Syphilis Screen Today N89.8 - Other specified noninflammatory disorders of vagina, R10.2 - Pelvic and perineal pain, Z97.5 - Presence of (intrauterine) contraceptive device HIV Ab/Ag Today N89.8 - Other specified noninflammatory disorders of vagina, R10.2 - Pelvic and perineal pain, Z97.5 - Presence of (intrauterine) contraceptive device CT NG by PCR Vag/Cerv Today N89.8 - Other specified noninflammatory disorders of vagina Urine Culture Today R10.20 - Pelvic and perineal pain unspecified side Coding Level of Care Code Est Pt Level 3 (19674) Diagnoses Presence of 52 mg levonorgestrel-releasing intrauterine device (IUD) Z97.5 Pelvic pressure in female R10.2 Vaginal discharge N89.8 Encounter for screening examination for sexually transmitted disease Z11.3
--- OUTSIDE RECORDS SUMMARY | 2024-11-17 11:16 | XMS_ITS | Clinical Summary ---
Author Organization [employer] [facility] ity Address [address] [place] [address] Care Team Providers Care Callisthenics Instructor Name Role Phone Stanford Waters MD Primary [...] Cervical Cancer Screening: P ap Smear 2002 HPV Vaccines (1 - 3-dose SCD M series) 2008 Depression Screening 02/12/2024 COVID-19 Vaccine ( - 2023-2 5 season) 2024 Influenza Vaccine (#1) 2024 RSV Immunization Adult Patie nts (1 - 1-dose 75+ series) 2056 HIB Vaccines Aged Out No longer eligi [...] age to complete this topic Care Teams Callisthenics Instructor Relationship Specialty Start Date End Date Stanford Waters MD [address] [place] [address] Dr [address] [place] PCP - General Internal Medicine 09/27/19
== END 2024-11-17 14:27 | disposition home or self-care (01) ==
LOC: HO.HWSM 09:48
PROVIDERS: PCP Internal Medicine; Visit Provider Advanced Practice Midwife
DX: N89.8 Other specified noninflammatory disorders of vagina (principal); R10.20 Pelvic and perineal pain unspecified side; Z97.5 Presence of (intrauterine) contraceptive device; Z11.3 Encounter for screening for infections with a predominantly sexual mode of transmission
CPT/HCPCS: 99213

== ENCOUNTER 2024-11-17 09:48 | Outpatient (REF) | payer OTHER, SELFPAY | END 2024-11-17 09:49 | disposition home or self-care (01) | LOC: HO.LAB 09:48 | PROVIDERS: PCP Internal Medicine; Visit Provider Advanced Practice Midwife | DX: N89.8 Other specified noninflammatory disorders of vagina (principal); R10.20 Pelvic and perineal pain unspecified side; Z97.5 Presence of (intrauterine) contraceptive device; Z11.3 Encounter for screening for infections with a predominantly sexual mode of transmission | CPT/HCPCS: 99212 ==

== ENCOUNTER 2024-11-17 11:35 | Outpatient (REF) | payer OTHER, SELFPAY ==
[2024-11-18 10:30] LABS: Bacterial Vaginosis PCR NEGATIVE (Negative); Candida Group PCR NOT DETECTED (Not Detect); Candida glab krusei PCR NOT DETECTED (Not Detect); Trichomonas vaginalis PCR NOT DETECTED (Not Detect)
[2024-11-18 11:01] LABS: CT PCR NOT DETECTED (Not Detect.); NG PCR NOT DETECTED (Not Detect.)
== END 2024-11-17 11:36 | disposition home or self-care (01) ==
LOC: HO.LNP 11:35
PROVIDERS: Visit Provider Advanced Practice Midwife
DX: N89.8 Other specified noninflammatory disorders of vagina (principal); N94.9 Unspecified condition associated with female genital organs and menstrual cycle; R10.20 Pelvic and perineal pain unspecified side
CPT/HCPCS: 81515; 87086; 87491; 87591

== ENCOUNTER 2025-01-19 10:12 | Outpatient (REF) | payer OTHER, SELFPAY ==
[2025-01-19 12:24] LABS: Syphilis Screen Nonreactive (Nonreactive)
[2025-01-19 12:33] LABS: HBsAGNum1 0.35 S/CO (0.00-0.99); Hepatitis B Surface Antigen Negative (Negative); ~HepC Num1 0.16 S/CO (0.00-0.79); ~Hepatitis C Antibody Nonreactive (Nonreactive)
[2025-01-19 13:05] LABS: HIV Num 1 0.07 S/CO (0.00-0.99)
== END 2025-01-19 10:13 | disposition home or self-care (01) ==
LOC: HO.LAB 10:12
PROVIDERS: PCP Internal Medicine; Visit Provider Advanced Practice Midwife
DX: Z11.3 Encounter for screening for infections with a predominantly sexual mode of transmission (principal); Z11.4 Encounter for screening for human immunodeficiency virus [HIV]; R10.20 Pelvic and perineal pain unspecified side; N89.8 Other specified noninflammatory disorders of vagina; Z97.5 Presence of (intrauterine) contraceptive device
CPT/HCPCS: 36415; 86780; 86803; 87340; 87389